=== PATIENT | female | born 1945 | race Caucasian/White ===

== ENCOUNTER 2018-10-19 10:54 | Emergency (ER) | payer MEDICARE, OTHER, SELFPAY ==
[2018-10-19 11:01] VITALS: BP 116/77; PULSE 79; RESP 14; TEMP 36.1; O2SAT 98
[2018-10-19 13:44] VITALS: BP 124/74; PULSE 68; RESP 18; O2SAT 100
--- NOTE | 2018-10-19 13:53 | DI.US.S_ITS ---
PROCEDURE: US PERIPH VENOUS LOW EXTREM LT INDICATIONS: LEFT LEG PAIN TECHNIQUE: Real-time imaging, as well as color and pulse Doppler interrogation, were performed of the lower extremity deep veins from the inguinal ligament to the popliteal fossa. COMPARISON: None. FINDINGS: The deep veins are normally compressible, and free of intraluminal thrombus. Color and pulse Doppler demonstrate normal phasic intraluminal flow. There is normal augmentation response to distal compression maneuver. There is a Hinton's cyst in the left popliteal fossa measuring 5.9 x 1.8 x 3.4 cm. IMPRESSION: 1. No DVT in the left lower facial region. 2. A 5.9 x 1.8 x 3.4 cm Hinton's cyst. Dictated by: Karyna Workman M.D. on 10/19/2018 at 14:39 Approved by: Karyna Workman M.D. on 10/19/2018 at 14:39
--- NOTE | 2018-10-19 13:53 | DI.RAD.S_ITS ---
PROCEDURE: XR KNEE LT 3V INDICATIONS: Knee pain. TECHNIQUE: 3 views of the knee were acquired. COMPARISON: None. FINDINGS: Bones: No fractures or dislocations. Mild tricompartmental degenerative changes of the left knee as evidenced by osteophyte formation. Soft tissues: There is a mild left knee joint effusion. Faint soft tissue calcifications within the knee compartments are consistent with chondrocalcinosis. IMPRESSION: 1. Left knee joint calcifications consistent with chondrocalcinosis. 2. Mild left knee joint effusion with mild degenerative changes of the left knee. Dictated by: Wesly Weston M.D. on 10/19/2018 at 14:46 Approved by: Wesly Weston M.D. on 10/19/2018 at 14:51
--- NOTE | 2018-10-19 14:10 | ED.EXTPRO ---
HPI - Extremity Problem <RHODA Antunez - Last Filed: 10/19/18 18:01> General Chief complaint: Extremity Problem,Nontraumatic Stated complaint: VERY PAINFUL LEFT KNEE Time Seen by Provider: 10/19/18 13:42 Source: patient and family Mode of arrival: ambulatory Limitations: no limitations History of Present Illness HPI Narrative: Patient is a 73-year-old female nonsmoker with history of breast CA who presents with a chief complaint of left knee pain she stated started 2 days ago. She denies any trauma, falls or twisting. She denies any fevers nausea vomiting or diarrhea. She denies any redness. She states that the pain radiates from her knee down her calf. She has taken 1 Tylenol 350 mg p.o. yesterday for the pain. She has not done anything else for the pain. She states that she has range of motion, but that it is painful to move it. She denies any previous injury to her knee before. Related Data Home Medications Medication Instructions Recorded Confirmed Antacid 1 dose PO PRN PRN 10/19/18 10/19/18 Calcium 1 tab PO DAILY 10/19/18 10/19/18 Liquid Minerals 1 dose PO DAILY 10/19/18 10/19/18 Potassium 1 dose PO DAILY 10/19/18 10/19/18 Vitamin D3 1 cap PO DAILY 10/19/18 10/19/18 Women's Multivitamin 1 tab PO DAILY 10/19/18 10/19/18 iron 1 tab PO DAILY 10/19/18 10/19/18 selenium 1 cap PO DAILY 10/19/18 10/19/18 turmeric 1 dose PO DAILY 10/19/18 10/19/18 vitamin E 1 cap PO DAILY 10/19/18 10/19/18 zinc 1 dose PO DAILY 10/19/18 10/19/18 Allergies Allergy/AdvReac Type Severity Reaction Status Date / Time Penicillins [PENICILLINS] Allergy Severe RASH Unverified 12/30/17 12:53 clindamycin [CLINDAMYCIN] AdvReac Severe CRAMPING, Unverified 12/30/17 12:53 DIARRHEA morphine [MORPHINE] AdvReac Severe STOPS Unverified 12/30/17 12:53 BREATHING Review of Systems <RHODA Antunez - Last Filed: 10/19/18 18:01> Review of Systems GENERAL: Denies chills, fatigue, malaise, fever, sweats. HEENT: Denies sinus pain, ear pain, sore throat, difficulty swallowing, dizziness. RESPIRATORY: Denies dyspnea, cough, wheezing, hemoptysis, sputum. CARDIOVASCULAR: Denies chest pain, palpitations, orthopnea, edema, GASTROINTESTINAL: Denies nausea, vomiting, abdominal pain, diarrhea, constipation, melena. : Denies dysuria, frequency, incontinence, hematuria, urinary retention. MUSCULOSKELETAL: See HPI SKIN: Denies rash, skin lesions, or other NEUROLOGIC: Denies weakness, headache, numbness, change in speech, confusion, seizures, incoordination. PSYCHIATRIC: No concerning psychosocial issues. 12 point review of systems is negative except for those stated above Exam <Patricia Moya, AIR SAMPLER-BC - Last Filed: 10/19/18 18:01> Narrative Exam Narrative: GENERAL: obese patient lying on stretcher in no acute distress HEAD: Atraumatic. Normocephalic. No temporal or scalp tenderness. EYES: Pupils equal round and reactive. Extraocular motions intact. No scleral icterus. No injection or drainage. ENT: Nose without bleeding, purulent drainage or septal hematoma. Throat without erythema, tonsillar hypertrophy or exudate. Uvula midline. Airway patent. NECK: Trachea midline. No JVD or lymphadenopathy. Supple, nontender, no meningeal signs. CARDIOVASCULAR: Regular rate and rhythm without murmurs, gallops, or rubs. RESPIRATORY: Clear to auscultation. Breath sounds equal bilaterally. No wheezes, rales, or rhonchi. GASTROINTESTINAL: Abdomen soft, non-tender, nondistended. No hepato-splenomegaly, or palpable masses. No guarding. Active bowel sounds. EXTREMITIES: Diffuse tenderness to palpation left knee. Patient is able to flex left knee 90?. No overlying erythema. Positive Homans sign left calf. Pain to palpation left calf. Positive pedal pulses left foot. BACK: Nontender without deformity or crepitance. No flank tenderness. NEURO: AOx3. SKIN: No rash erythema ecchymosis or erythema noted bilateral knees. Initial Vital Signs Initial Vital Signs: Vital Signs Temperature 97.0 F L 10/19/18 11:01 Pulse Rate 79 10/19/18 11:01 Respiratory Rate 14 10/19/18 11:01 Blood Pressure 116/77 10/19/18 11:01 Pulse Oximetry 98 10/19/18 11:01 <Daisy Anderson DO - Last Filed: 10/20/18 09:45> Initial Vital Signs Initial Vital Signs: Vital Signs Temperature 97.0 F L 10/19/18 11:01 Pulse Rate 79 10/19/18 11:01 Respiratory Rate 14 10/19/18 11:01 Blood Pressure 116/77 10/19/18 11:01 Pulse Oximetry 98 10/19/18 11:01 Course <RHODA Antunez - Last Filed: 10/19/18 18:01> Orders Ordered: ED Orders 10/19/18 13:53 US periph venous low extrem lt Stat XR knee LT 3V Stat Vital Signs - 8 hr 10/19/18 11:01 10/19/18 13:44 10/19/18 15:39 Temperature 97.0 F L Pulse Rate 79 68 80 Respiratory Rate 14 18 16 Blood Pressure 116/77 Blood Pressure [Left Arm] 124/74 124/78 Pulse Oximetry 98 100 99 10/19/18 15:42 Temperature Pulse Rate 74 Respiratory Rate 13 Blood Pressure 124/78 Blood Pressure [Left Arm] Pulse Oximetry 98 <Daisy Anderson DO - Last Filed: 10/20/18 09:45> Orders Ordered: ED Orders 10/19/18 13:53 US periph venous low extrem lt Stat XR knee LT 3V Stat Vital Signs - 8 hr 10/19/18 11:01 10/19/18 13:44 10/19/18 15:39 Temperature 97.0 F L Pulse Rate 79 68 80 Respiratory Rate 14 18 16 Blood Pressure 116/77 Blood Pressure [Left Arm] 124/74 124/78 Pulse Oximetry 98 100 99 10/19/18 15:42 Temperature Pulse Rate 74 Respiratory Rate 13 Blood Pressure 124/78 Blood Pressure [Left Arm] Pulse Oximetry 98 MDM - Extremity (Nontraumatic) <RHODA Antunez - Last Filed: 10/19/18 18:01> Imaging Data Venous US: Radiologist's impression: [address] [address] Ultrasound Report Signed Patient: Sveta Garcia [facility]#: [id number] : 5Acct:[id number] Age/Sex: 73 / FDate of Service: 10/19/18 Loc: ED Accession Number: [id number] Procedure: US periph venous low extrem lt Ordering Provider: Patricia Moya PROCEDURE: US PERIPH VENOUS LOW EXTREM LT INDICATIONS: LEFT LEG PAIN TECHNIQUE: Real-time imaging, as well as color and pulse Doppler interrogation, were performed of the lower extremity deep veins from the inguinal ligament to the popliteal fossa. COMPARISON: None. FINDINGS: The deep veins are normally compressible, and free of intraluminal thrombus. Color and pulse Doppler demonstrate normal phasic intraluminal flow. There is normal augmentation response to distal compression maneuver. There is a Hinton's cyst in the left popliteal fossa measuring 5.9 x 1.8 x 3.4 cm. IMPRESSION: 1. No DVT in the left lower facial region. 2. A 5.9 x 1.8 x 3.4 cm Hinton's cyst. Dictated by: Karyna Workman M.D. on 10/19/2018 at 14:39 Approved by: Karyna Workman M.D. on 10/19/2018 at 14:39 knee xray : Radiologist's impression: [place] [address] XRay Report Signed Patient: Sveta Garcia [facility]#: [id number] : 5Acct:[id number] Age/Sex: 73 / FDate of Service: 10/19/18 Loc: ED Accession Number: [id number] Procedure: XR knee LT 3V Ordering Provider: Patricia Moya PROCEDURE: XR KNEE LT 3V INDICATIONS: Knee pain. TECHNIQUE: 3 views of the knee were acquired. COMPARISON: None. FINDINGS: Bones: No fractures or dislocations. Mild tricompartmental degenerative changes of the left knee as evidenced by osteophyte formation. Soft tissues: There is a mild left knee joint effusion. Faint soft tissue calcifications within the knee compartments are consistent with chondrocalcinosis. IMPRESSION: 1. Left knee joint calcifications consistent with chondrocalcinosis. 2. Mild left knee joint effusion with mild degenerative changes of the left knee. Dictated by: Wesly Weston M.D. on 10/19/2018 at 14:46 Approved by: Wesly Weston M.D. on 10/19/2018 at 14:51 MDM Narrative Medical decision making narrative: Patient is a 73-year-old female with knee pain who presents with chief complaint of left knee pain and swelling. Given her pain and swelling, I did obtain an ultrasound to rule out a DVT. This came back with out a clot. Her x-ray came back with degenerative changes. She does have a Hinton cyst. I offered her pain medication in the emergency department, which she declined. I discussed at length follow up with primary care provider. I discussed come back to the emergency department for any acute concerns including chest pain shortness breath concern pressure for stroke. Patient questions or concerns upon discharge. Discharge Plan Departure Patient Disposition: Home Clinical Impression: Hinton's cyst of knee, Acute knee pain Discharge Date/Time: 10/19/18 15:42 Interventions: ED Discharge Assessment Last Done: 10/19/18 15:42 Instructions: Bakers Cyst, How To Perform RICE (Rest, Ice, Compress, Elevate), DI for Knee Pain Activity Restrictions/Additional Instructions: Your ultrasound shows no blood clot today. You do have a cyst on the back of your knee. You also have some degenerative changes in your knee. Please use rest ice compression elevation as well as [id number] pain medications as needed and able. Please follow-up with her primary care provider shortly. Come back to the emergency department for any acute concerns including blood clot, stroke, heart attack. Prescriptions: No Action Antacid 1 dose PO PRN PRN (Reason: Indigestion) RF: 0 Calcium 1 tab PO DAILY RF: 0 Liquid Minerals 1 dose PO DAILY RF: 0 Potassium 1 dose PO DAILY RF: 0 Vitamin D3 1 cap PO DAILY RF: 0 Women's Multivitamin 1 tab PO DAILY RF: 0 iron 1 tab PO DAILY RF: 0 selenium 1 cap PO DAILY RF: 0 turmeric 1 dose PO DAILY RF: 0 vitamin E 1 cap PO DAILY RF: 0 zinc 1 dose PO DAILY RF: 0 Referrals: Sourav Mohan MD [Primary Care Provider] - <Daisy Anderson DO - Last Filed: 10/20/18 09:45> Cosign ED Attending Juan Carlosature Attestation: I was immediately available in the department for consultation. Documentation has been reviewed. I agree with assessment and plan.
--- NOTE | 2018-10-19 14:13 | ED_ITS ---
HPI - Extremity Problem <RHODA Antunez - Last Filed: 10/19/18 18:01> General Chief complaint: Extremity Problem,Nontraumatic Stated complaint: VERY PAINFUL LEFT KNEE Time Seen by Provider: 10/19/18 13:42 Source: patient and family Mode of arrival: ambulatory Limitations: no limitations History of Present Illness HPI Narrative: Patient is a 73-year-old female nonsmoker with history of breast CA who presents with a chief complaint of left knee pain she stated started 2 days ago. She denies any trauma, falls or twisting. She denies any fevers nausea vomiting or diarrhea. She denies any redness. She states that the pain radiates from her knee down her calf. She has taken 1 Tylenol 350 mg p.o. yesterday for the pain. She has not done anything else for the pain. She states that she has range of motion, but that it is painful to move it. She denies any previous injury to her knee before. Related Data Home Medications Medication Instructions Recorded Confirmed Antacid 1 dose PO PRN PRN 10/19/18 10/19/18 Calcium 1 tab PO DAILY 10/19/18 10/19/18 Liquid Minerals 1 dose PO DAILY 10/19/18 10/19/18 Potassium 1 dose PO DAILY 10/19/18 10/19/18 Vitamin D3 1 cap PO DAILY 10/19/18 10/19/18 Women's Multivitamin 1 tab PO DAILY 10/19/18 10/19/18 iron 1 tab PO DAILY 10/19/18 10/19/18 selenium 1 cap PO DAILY 10/19/18 10/19/18 turmeric 1 dose PO DAILY 10/19/18 10/19/18 vitamin E 1 cap PO DAILY 10/19/18 10/19/18 zinc 1 dose PO DAILY 10/19/18 10/19/18 Allergies Allergy/AdvReac Type Severity Reaction Status Date / Time Penicillins [PENICILLINS] Allergy Severe RASH Unverified 12/30/17 12:53 clindamycin [CLINDAMYCIN] AdvReac Severe CRAMPING, Unverified 12/30/17 12:53 DIARRHEA morphine [MORPHINE] AdvReac Severe STOPS Unverified 12/30/17 12:53 BREATHING Review of Systems <RHODA Antunez - Last Filed: 10/19/18 18:01> Review of Systems GENERAL: Denies chills, fatigue, malaise, fever, sweats. HEENT: Denies sinus pain, ear pain, sore throat, difficulty swallowing, dizziness. RESPIRATORY: Denies dyspnea, cough, wheezing, hemoptysis, sputum. CARDIOVASCULAR: Denies chest pain, palpitations, orthopnea, edema, GASTROINTESTINAL: Denies nausea, vomiting, abdominal pain, diarrhea, constipation, melena. : Denies dysuria, frequency, incontinence, hematuria, urinary retention. MUSCULOSKELETAL: See HPI SKIN: Denies rash, skin lesions, or other NEUROLOGIC: Denies weakness, headache, numbness, change in speech, confusion, seizures, incoordination. PSYCHIATRIC: No concerning psychosocial issues. 12 point review of systems is negative except for those stated above Exam <Patricia Moya, POWDER LINE REPAIRER-BC - Last Filed: 10/19/18 18:01> Narrative Exam Narrative: GENERAL: obese patient lying on stretcher in no acute distress HEAD: Atraumatic. Normocephalic. No temporal or scalp tenderness. EYES: Pupils equal round and reactive. Extraocular motions intact. No scleral icterus. No injection or drainage. ENT: Nose without bleeding, purulent drainage or septal hematoma. Throat without erythema, tonsillar hypertrophy or exudate. Uvula midline. Airway patent. NECK: Trachea midline. No JVD or lymphadenopathy. Supple, nontender, no meningeal signs. CARDIOVASCULAR: Regular rate and rhythm without murmurs, gallops, or rubs. RESPIRATORY: Clear to auscultation. Breath sounds equal bilaterally. No wheezes , rales, or rhonchi. GASTROINTESTINAL: Abdomen soft, non-tender, nondistended. No hepato-splenomegaly , or palpable masses. No guarding. Active bowel sounds. EXTREMITIES: Diffuse tenderness to palpation left knee. Patient is able to flex left knee 90?. No overlying erythema. Positive Homans sign left calf. Pain to palpation left calf. Positive pedal pulses left foot. BACK: Nontender without deformity or crepitance. No flank tenderness. NEURO: AOx3. SKIN: No rash erythema ecchymosis or erythema noted bilateral knees. Initial Vital Signs Initial Vital Signs: Vital Signs Temperature 97.0 F L 10/19/18 11:01 Pulse Rate 79 10/19/18 11:01 Respiratory Rate 14 10/19/18 11:01 Blood Pressure 116/77 10/19/18 11:01 Pulse Oximetry 98 10/19/18 11:01 <Daisy Anderson DO - Last Filed: 10/20/18 09:45> Initial Vital Signs Initial Vital Signs: Vital Signs Temperature 97.0 F L 10/19/18 11:01 Pulse Rate 79 10/19/18 11:01 Respiratory Rate 14 10/19/18 11:01 Blood Pressure 116/77 10/19/18 11:01 Pulse Oximetry 98 10/19/18 11:01 Course <RHODA Antunez - Last Filed: 10/19/18 18:01> Orders Ordered: ED Orders 10/19/18 13:53 US periph venous low extrem lt Stat XR knee LT 3V Stat Vital Signs - 8 hr 10/19/18 11:01 10/19/18 13:44 10/19/18 15:39 Temperature 97.0 F L Pulse Rate 79 68 80 Respiratory Rate 14 18 16 Blood Pressure 116/77 Blood Pressure [Left Arm] 124/74 124/78 Pulse Oximetry 98 100 99 10/19/18 15:42 Temperature Pulse Rate 74 Respiratory Rate 13 Blood Pressure 124/78 Blood Pressure [Left Arm] Pulse Oximetry 98 <Daisy Anderson DO - Last Filed: 10/20/18 09:45> Orders Ordered: ED Orders 10/19/18 13:53 US periph venous low extrem lt Stat XR knee LT 3V Stat Vital Signs - 8 hr 10/19/18 11:01 10/19/18 13:44 10/19/18 15:39 Temperature 97.0 F L Pulse Rate 79 68 80 Respiratory Rate 14 18 16 Blood Pressure 116/77 Blood Pressure [Left Arm] 124/74 124/78 Pulse Oximetry 98 100 99 10/19/18 15:42 Temperature Pulse Rate 74 Respiratory Rate 13 Blood Pressure 124/78 Blood Pressure [Left Arm] Pulse Oximetry 98 MDM - Extremity (Nontraumatic) <RHODA Antunez - Last Filed: 10/19/18 18:01> Imaging Data Venous US: Radiologist's impression: [address] [address] Ultrasound Report Signed Patient: Sveta Garcia [facility]#: [id number] : 5Acct:[id number] Age/Sex: 73 / FDate of Service: 10/19/18 Loc: ED Accession Number: [id number] Procedure: US periph venous low extrem lt Ordering Provider: Patricia Moya PROCEDURE: US PERIPH VENOUS LOW EXTREM LT INDICATIONS: LEFT LEG PAIN TECHNIQUE: Real-time imaging, as well as color and pulse Doppler interrogation, were performed of the lower extremity deep veins from the inguinal ligament to the popliteal fossa. COMPARISON: None. FINDINGS: The deep veins are normally compressible, and free of intraluminal thrombus. Color and pulse Doppler demonstrate normal phasic intraluminal flow. There is normal augmentation response to distal compression maneuver. There is a Hinton's cyst in the left popliteal fossa measuring 5.9 x 1.8 x 3.4 cm. IMPRESSION: 1. No DVT in the left lower facial region. 2. A 5.9 x 1.8 x 3.4 cm Hinton's cyst. Dictated by: Karyna Workman M.D. on 10/19/2018 at 14:39 Approved by: Karyna Workman M.D. on 10/19/2018 at 14:39 knee xray : Radiologist's impression: [place] [address] XRay Report Signed Patient: Sveta Garcia [facility]#: [id number] : 5Acct:[id number] Age/Sex: 73 / FDate of Service: 10/19/18 Loc: ED Accession Number: [id number] Procedure: XR knee LT 3V Ordering Provider: Patricia Moya PROCEDURE: XR KNEE LT 3V INDICATIONS: Knee pain. TECHNIQUE: 3 views of the knee were acquired. COMPARISON: None. FINDINGS: Bones: No fractures or dislocations. Mild tricompartmental degenerative changes of the left knee as evidenced by osteophyte formation. Soft tissues: There is a mild left knee joint effusion. Faint soft tissue calcifications within the knee compartments are consistent with chondrocalcinosis. IMPRESSION: 1. Left knee joint calcifications consistent with chondrocalcinosis. 2. Mild left knee joint effusion with mild degenerative changes of the left knee. Dictated by: Wesly Weston M.D. on 10/19/2018 at 14:46 Approved by: Wesly Weston M.D. on 10/19/2018 at 14:51 MDM Narrative Medical decision making narrative: Patient is a 73-year-old female with knee pain who presents with chief complaint of left knee pain and swelling. Given her pain and swelling, I did obtain an ultrasound to rule out a DVT. This came back with out a clot. Her x-ray came back with degenerative changes. She does have a Hinton cyst. I offered her pain medication in the emergency department, which she declined. I discussed at length follow up with primary care provider. I discussed come back to the emergency department for any acute concerns including chest pain shortness breath concern pressure for stroke. Patient questions or concerns upon discharge. Discharge Plan Departure Patient Disposition: Home Clinical Impression: Hinton's cyst of knee, Acute knee pain Discharge Date/Time: 10/19/18 15:42 Interventions: ED Discharge Assessment Last Done: 10/19/18 15:42 Instructions: Bakers Cyst, How To Perform RICE (Rest, Ice, Compress, Elevate), DI for Knee Pain Activity Restrictions/Additional Instructions: Your ultrasound shows no blood clot today. You do have a cyst on the back of your knee. You also have some degenerative changes in your knee. Please use rest ice compression elevation as well as [id number] pain medications as needed and able. Please follow-up with her primary care provider shortly. Come back to the emergency department for any acute concerns including blood clot, stroke, heart attack. Prescriptions: No Action Antacid 1 dose PO PRN PRN (Reason: Indigestion) RF: 0 Calcium 1 tab PO DAILY RF: 0 Liquid Minerals 1 dose PO DAILY RF: 0 Potassium 1 dose PO DAILY RF: 0 Vitamin D3 1 cap PO DAILY RF: 0 Women's Multivitamin 1 tab PO DAILY RF: 0 iron 1 tab PO DAILY RF: 0 selenium 1 cap PO DAILY RF: 0 turmeric 1 dose PO DAILY RF: 0 vitamin E 1 cap PO DAILY RF: 0 zinc 1 dose PO DAILY RF: 0 Referrals: Sourav Mohan MD [Primary Care Provider] - <Daisy Anderson DO - Last Filed: 10/20/18 09:45> Cosign ED Attending Juan Carlosature Attestation: I was immediately available in the department for consultation. Documentation has been reviewed. I agree with assessment and plan.
[2018-10-19 15:39] VITALS: BP 124/78; PULSE 80; RESP 16; O2SAT 99
[2018-10-19 15:42] VITALS: BP 124/78; PULSE 74; RESP 13; O2SAT 98
== END 2018-10-19 15:42 | disposition home or self-care (01) ==
PROVIDERS: Emergency Provider Nurse Practitioner Family; PCP Family Medicine
DX: M71.22 Synovial cyst of popliteal space [Baker], left knee (principal)
CPT/HCPCS: 73562; 93971; 99282; 99284

== ENCOUNTER → 2019-02-23 13:11 | Outpatient (CLI) | payer MEDICARE, OTHER, SELFPAY ==
[2019-02-23 13:52] LABS: Add Manual Diff / Slide Review NO; Basophils Absolute Auto 100 /uL (0-100); Basophils Percent Auto 0.7 % (0-2); Eosinophils Absolute Auto 200 /uL (0-450); Eosinophils Percent Auto 2.1 % (2-4); Hematocrit 42.4 % (36-46); Hemoglobin 14.1 g/dL (12.0-16.0); Lymphocytes Absolute Auto 1900 /uL (1100-4500); Lymphocytes Percent Auto 24.6 % (25-40); Mean Corpuscular HGB Conc 33.2 % (30-36); Mean Corpuscular Hemoglobin 29.3 PG (26-34); Mean Corpuscular Volume 88.2 fL (80-100); Monocytes Absolute Auto 700 /uL (0-900); Monocytes Percent Auto 9.7 % (3-14); Neutrophils Absolute Auto 4800 /uL (1500-7000); Neutrophils Percent Auto 62.9 % (50-75); Platelet Count 241 X10^3/uL (150-400); Red Blood Cell Count 4.81 X10^6/uL (4.0-5.2); White Blood Cell Count 7.6 X10^3/uL (4.5-11.0)
[2019-02-23 13:58] LABS: Alanine Aminotransferase 18 IU/L (9-52); Albumin 4.4 g/dL (3.5-5.0); Albumin Globulin Ratio 1.5 (1.0-2.8); Alkaline Phosphatase 68 U/L (38-126); Aspartate Aminotransferase 23 IU/L (14-36); BUN Creatinine Ratio 23.8 (6-22); Bilirubin Total 0.5 mg/dL (0.2-1.3); Blood Urea Nitrogen 19 mg/dL (7-17); Calcium 10.1 mg/dL (8.4-10.2); Carbon Dioxide 28 mmol/L (22-32); Chloride 103 mmol/L (98-107); Cholesterol 209 mg/dL (140-199); Estimated Glomerular Filt Rate > 60.0 mL/min (>60); Globulin 2.9 g/dL (1.7-4.1); Glucose 119 mg/dL (80-110); HDL Cholesterol 63 mg/dL (40-60); HEMOLYSIS < 15 (0-50); LDL Cholesterol Calculated 109 mg/dL (<100); Potassium 4.4 mmol/L (3.4-5.1); Sodium 138 mmol/L (137-145); Total Protein 7.3 g/dL (6.3-8.2); Triglycerides 185 mg/dL (35-150)
[2019-02-23 14:32] LABS: HEMOLYSIS < 15 (0-50); Iron 86 ug/dL (37-170)
[2019-02-23 14:45] LABS: Percent Iron Saturation 34 % (15-50); Total Iron Binding Capacity 250 ug/dL (265-497); Transferrin 197 mg/dL (206-381)
[2019-02-23 15:02] LABS: TSH w/ Reflex to FT4 1.87 uIU/mL (0.47-4.68)
== END ==
PROVIDERS: PCP Family Medicine; Visit Provider Family Medicine
DX: D50.8 Other iron deficiency anemias (principal); E66.9 Obesity, unspecified; Z83.3 Family history of diabetes mellitus
CPT/HCPCS: 36415; 80053; 80061; 82728; 83540; 83550; 84443; 85025

== ENCOUNTER → 2019-03-21 14:35 | Outpatient (CLI) | payer MEDICARE, OTHER, SELFPAY | PROVIDERS: PCP Family Medicine; Visit Provider Family Medicine | DX: Z78.0 Asymptomatic menopausal state (principal) | CPT/HCPCS: 77080 ==

== ENCOUNTER → 2019-04-08 09:50 | Outpatient (CLI) | payer MEDICARE, OTHER, SELFPAY ==
[2019-04-08 11:05] LABS: Add Manual Diff / Slide Review NO; Basophils Absolute Auto 0 /uL (0-100); Basophils Percent Auto 0.8 % (0-2); Eosinophils Absolute Auto 100 /uL (0-450); Eosinophils Percent Auto 2.7 % (2-4); Hematocrit 41.2 % (36-46); Hemoglobin 13.8 g/dL (12.0-16.0); Lymphocytes Absolute Auto 1300 /uL (1100-4500); Lymphocytes Percent Auto 25.2 % (25-40); Mean Corpuscular HGB Conc 33.4 % (30-36); Mean Corpuscular Hemoglobin 29.3 PG (26-34); Mean Corpuscular Volume 87.6 fL (80-100); Monocytes Absolute Auto 600 /uL (0-900); Monocytes Percent Auto 11.2 % (3-14); Neutrophils Absolute Auto 3200 /uL (1500-7000); Neutrophils Percent Auto 60.1 % (50-75); Platelet Count 250 X10^3/uL (150-400); Red Blood Cell Count 4.71 X10^6/uL (4.0-5.2); Red Cell Distribution Width 14.8 % (11.6-14.8); White Blood Cell Count 5.3 X10^3/uL (4.5-11.0)
[2019-04-08 11:14] LABS: Hemoglobin A1C% w Est Avg Glu 5.3 % (4.0-6.0)
[2019-04-08 11:32] LABS: Prothrombin Time 11.9 SECONDS (10.1-12.7)
[2019-04-08 11:42] LABS: Blood Urea Nitrogen 18 mg/dL (7-17); Calcium 10.1 mg/dL (8.4-10.2); Carbon Dioxide 27 mmol/L (22-32); Chloride 105 mmol/L (98-107); Estimated Glomerular Filt Rate > 60.0 mL/min (>60); Glucose 90 mg/dL (80-110); HEMOLYSIS < 15 (0-50); Potassium 4.4 mmol/L (3.4-5.1); Sodium 139 mmol/L (137-145)
== END ==
PROVIDERS: PCP Family Medicine; Visit Provider Family Medicine
DX: R73.03 Prediabetes (principal); R79.89 Other specified abnormal findings of blood chemistry; R23.8 Other skin changes; R23.3 Spontaneous ecchymoses; Z83.3 Family history of diabetes mellitus
CPT/HCPCS: 36415; 80048; 82728; 83036; 85025; 85610

== ENCOUNTER → 2019-08-26 13:29 | Outpatient (CLI) | payer MEDICARE, OTHER, SELFPAY | PROVIDERS: PCP Family Medicine; Visit Provider Family Medicine | DX: T14.8XXA Other injury of unspecified body region, initial encounter (principal) | CPT/HCPCS: 87070; 87147; 87205 ==

== ENCOUNTER → 2019-09-06 14:27 | Outpatient (CLI) | payer MEDICARE, OTHER, SELFPAY | PROVIDERS: PCP Family Medicine; Visit Provider Family Medicine | DX: S81.801A Unspecified open wound, right lower leg, initial encounter (principal); R60.0 Localized edema | CPT/HCPCS: 11042; 87070; 87075; 87077; 87147; 87186; 87205; 99203; 99213 ==

== ENCOUNTER → 2019-09-13 08:29 | Outpatient (CLI) | payer MEDICARE, OTHER, SELFPAY | PROVIDERS: PCP Family Medicine; Visit Provider Family Medicine | DX: S81.801A Unspecified open wound, right lower leg, initial encounter (principal); R60.0 Localized edema | CPT/HCPCS: 11042; 97605 ==

== ENCOUNTER → 2019-09-15 12:37 | Outpatient (CLI) | payer MEDICARE, OTHER, SELFPAY | PROVIDERS: PCP Family Medicine; Visit Provider Family Medicine | DX: S81.801D Unspecified open wound, right lower leg, subsequent encounter (principal) | CPT/HCPCS: 99212 ==

== ENCOUNTER → 2019-09-22 13:00 | Outpatient (CLI) | payer MEDICARE, OTHER, SELFPAY | PROVIDERS: PCP Family Medicine; Visit Provider Family Medicine | DX: S81.801A Unspecified open wound, right lower leg, initial encounter (principal); R60.0 Localized edema | CPT/HCPCS: 11042 ==

== ENCOUNTER → 2019-09-28 13:01 | Outpatient (CLI) | payer MEDICARE, OTHER, SELFPAY | PROVIDERS: PCP Family Medicine; Visit Provider Family Medicine | DX: S81.801A Unspecified open wound, right lower leg, initial encounter (principal); R60.0 Localized edema | CPT/HCPCS: 97597 ==

== ENCOUNTER → 2019-10-12 14:27 | Outpatient (CLI) | payer MEDICARE, OTHER, SELFPAY | PROVIDERS: PCP Family Medicine; Visit Provider Family Medicine | DX: S81.801A Unspecified open wound, right lower leg, initial encounter (principal) | CPT/HCPCS: 29581 ==

== ENCOUNTER → 2019-10-14 13:28 | Outpatient (CLI) | payer MEDICARE, OTHER, SELFPAY | PROVIDERS: PCP Family Medicine; Visit Provider Family Medicine | DX: I87.2 Venous insufficiency (chronic) (peripheral) (principal); L97.811 Non-pressure chronic ulcer of other part of right lower leg limited to breakdown of skin; R60.0 Localized edema | CPT/HCPCS: 97597 ==

== ENCOUNTER → 2019-10-19 13:14 | Outpatient (CLI) | payer MEDICARE, OTHER, SELFPAY | PROVIDERS: PCP Family Medicine; Visit Provider Family Medicine | DX: I87.2 Venous insufficiency (chronic) (peripheral) (principal); L97.811 Non-pressure chronic ulcer of other part of right lower leg limited to breakdown of skin; R60.0 Localized edema | CPT/HCPCS: 97597 ==

== ENCOUNTER → 2019-10-26 09:24 | Outpatient (CLI) | payer MEDICARE, OTHER, SELFPAY | PROVIDERS: PCP Family Medicine; Referring Provider Physician Assistant; Visit Provider Family Medicine | DX: I87.2 Venous insufficiency (chronic) (peripheral) (principal); L97.811 Non-pressure chronic ulcer of other part of right lower leg limited to breakdown of skin; R60.0 Localized edema | CPT/HCPCS: 99213 ==

== ENCOUNTER → 2019-11-02 14:27 | Outpatient (CLI) | payer MEDICARE, OTHER, SELFPAY | PROVIDERS: PCP Family Medicine; Referring Provider Physician Assistant; Visit Provider Family Medicine | DX: I87.2 Venous insufficiency (chronic) (peripheral) (principal); R60.0 Localized edema | CPT/HCPCS: 99212; 99213 ==

== ENCOUNTER 2020-08-26 00:05 | Emergency (ER) | payer MEDICARE, OTHER, SELFPAY ==
[2020-08-26 00:05] VITALS: BP 154/86; PULSE 77; RESP 16; TEMP 36.6; O2SAT 95; BMI 36.3
--- NOTE | 2020-08-26 01:30 | ED_ITS ---
HPI - Extremity Injury (Lower) General Chief Complaint: Extremity Injury, Lower Stated Complaint: bruised lower leg fell -6 days Time Seen by Provider: 08/26/20 01:28 Source: patient Mode of arrival: Ambulatory Limitations: no limitations History of Present Illness HPI Narrative: Patient is a 74-year-old female who presents with left leg pain and injury. She says 6 days ago she when out into the wind a door was blowing and it apparently hit her in the low left rosa. Since then she has developed quite significant bruising and significant swelling of the left leg. She has been ambulatory on it without difficulty. However the last few days she has noted some increasing redness and erythema. She has not had any rigors or sweats but does state that her temperature has been rising 1 degree each night. She is currently afebrile here she has not taken any antipyretic medications. complaint: leg injury Onset (ago): day(s) (6) Related Data Home Medications Medication Instructions Recorded Confirmed Antacid 1 dose PO PRN PRN 10/19/18 03/16/20 Calcium 1 tab PO DAILY 10/19/18 03/16/20 Liquid Minerals 1 dose PO DAILY 10/19/18 03/16/20 Potassium 1 dose PO DAILY 10/19/18 03/16/20 Vitamin D3 1 cap PO DAILY 10/19/18 03/16/20 Women's Multivitamin 1 tab PO DAILY 10/19/18 03/16/20 iron 1 tab PO DAILY 10/19/18 03/16/20 selenium 1 cap PO DAILY 10/19/18 03/16/20 turmeric 1 dose PO DAILY 10/19/18 03/16/20 vitamin E 1 cap PO DAILY 10/19/18 03/16/20 zinc 1 dose PO DAILY 10/19/18 03/16/20 ascorbic acid (vitamin C) 500 mg 500 mg PO DAILY 11/29/18 03/16/20 tablet Previous Rx's Medication Instructions Recorded cephalexin [Keflex] 500 mg PO TID #21 cap 08/26/20 Allergies Allergy/AdvReac Type Severity Reaction Status Date / Time Penicillins [PENICILLINS] Allergy Severe RASH Verified 03/16/20 11:54 clindamycin [CLINDAMYCIN] AdvReac Severe CRAMPING, Verified 03/16/20 11:54 DIARRHEA morphine [MORPHINE] AdvReac Severe STOPS Verified 03/16/20 11:54 BREATHING Review of Systems Review of Systems Narrative: GENERAL: Denies chills, fatigue, malaise, fever, sweats, travel HEENT: Denies sinus pain, ear pain, sore throat, difficulty swallowing, neck pain RESPIRATORY: Denies dyspnea, cough, wheezing, hemoptysis, sputum. CARDIOVASCULAR: Denies chest pain, palpitations, orthopnea, edema GASTROINTESTINAL: Denies nausea, vomiting, abdominal pain, diarrhea, constipation, melena. : Denies dysuria, frequency, incontinence, hematuria, urinary retention, flank pain. MUSCULOSKELETAL: Denies weakness, joint pain, or bony pain SKIN: Erythema left leg see HPI NEUROLOGIC: Denies weakness, dizziness, headache, numbness, change in speech, confusion PSYCHIATRIC: No concerning psychosocial issues. 12 point review of systems is negative except for those stated above and HPI Patient History Medical History Breast cancer (~1996) Chronic gastroesophageal reflux disease History of malignant neoplasm of breast (03/15/15) Hyperlipidemia Obesity (BMI 30-39.9) Orbital fracture (~1993) Surgical History H/O dilation and curettage (~1974) S/P left rotator cuff repair (~1993) S/P right rotator cuff repair (~2002) Status post breast lumpectomy Family History Mother Congestive heart failure Father Peptic ulcer disease Social History Smoking Status: Never smoker Smoking Status: Never smoker alcohol intake frequency: 0-2 drinks per day Substance Use Type: does not use Exam Initial Vital Signs Initial Vital Signs: Vital Signs Temperature 97.9 F 08/26/20 00:05 Pulse Rate 77 08/26/20 00:05 Respiratory Rate 16 08/26/20 00:05 Blood Pressure 154/86 H 08/26/20 00:05 Pulse Oximetry 95 08/26/20 00:05 GENERAL: Alert well-appearing 74-year-old female CARDIOVASCULAR: peripheral pulses in tact, cap refill <2 sec RESPIRATORY: No respiratory distress, speaks in full sentences without diffic ulty [ABDOMEN: Soft, nontender, no guarding or rebound] EXTREMITIES: Normal range of motion, no clubbing or edema. Neurovascularly intact NEUROLOGICAL: Cranial nerves II through XII grossly intact. Normal gait and speech. SKIN: Erythema contusion and swelling 6 cm x 5 cm on her left anterior rosa. There is some surrounding erythema as well it is blanchable. Skin is extremely tender to touch. Course Orders Ordered: Discontinued Medications Cefazolin Sodium (Cephalexin 250 Mg Prepack) [facility] Stop: 08/26/20 01:50 Last Admin: 08/26/20 02:19 Dose: 500 mg Documented by: SHAQUILLE Vital Signs Vital signs: Vital Signs - 8 hr 08/26/20 00:05 08/26/20 02:32 Temperature 97.9 F Pulse Rate 77 71 Respiratory Rate 16 18 Blood Pressure 154/86 H 142/82 H Pulse Oximetry 95 97 MDM - Extremity Injury (Lower) MDM Narrative Medical decision making narrative: At this time this appears to be cellulitis. She overall does not appear septic she is afebrile and appears well. She does have a history of large hematomas even leaving scarring on her legs, they also have previously been infected. She had reactions to penicillin and amoxicillin causing like rash and itching. She is also allergic to clindamycin. At this time will try Keflex of discussed for the possible cross reaction however her reaction to penicillins is not anaphylactic or life-threatening Discharge Plan Departure Patient Disposition: Home Clinical Impression: Cellulitis of left leg Instructions: Cellulitis Activity Restrictions/Additional Instructions: *You have been diagnosed with cellulitis left leg *What to do: Monitor redness and swelling. Redness should start to improve in 2-3 days *Continue to take medications as directed Keflex 500 mg 3 times a day for 7 days--> SENT TO [facility] *Follow up with your primary care provider in 2-3 days *Return to ER if you should have increased redness, increased swelling, fever or any new, worsening or concerning symptoms Prescriptions: New cephalexin [Keflex] 500 mg capsule 500 mg PO TID Qty: 21 RF: 0 No Action ascorbic acid (vitamin C) 500 mg tablet 500 mg PO DAILY RF: 0 Antacid 1 dose PO PRN PRN (Reason: Indigestion) RF: 0 Calcium 1 tab PO DAILY RF: 0 Liquid Minerals 1 dose PO DAILY RF: 0 Potassium 1 dose PO DAILY RF: 0 Vitamin D3 1 cap PO DAILY RF: 0 Women's Multivitamin 1 tab PO DAILY RF: 0 iron 1 tab PO DAILY RF: 0 selenium 1 cap PO DAILY RF: 0 turmeric 1 dose PO DAILY RF: 0 vitamin E 1 cap PO DAILY RF: 0 zinc 1 dose PO DAILY RF: 0 Referrals: Maranda Peralta DO [Primary Care Provider] -
[2020-08-26] MEDS: cephALEXin 250 MG PREPACK 1 BOTTLE MISC (02:19)
[2020-08-26 02:32] VITALS: BP 142/82; PULSE 71; RESP 18; O2SAT 97
== END 2020-08-26 02:33 | disposition home or self-care (01) ==
PROVIDERS: Emergency Provider Emergency Medicine; PCP Family Medicine
DX: L03.116 Cellulitis of left lower limb (principal); E66.9 Obesity, unspecified; Z68.36 Body mass index [BMI] 36.0-36.9, adult
CPT/HCPCS: 99281; 99283

== ENCOUNTER → 2020-11-05 12:01 | Outpatient (CLI) | payer MEDICARE, OTHER, SELFPAY ==
--- NOTE | 2020-11-05 12:04 | DI.RAD.S_ITS ---
PROCEDURE: XR CHEST 2V INDICATIONS: shortness of breath TECHNIQUE: 2 views of the chest were acquired. COMPARISON: [facility], CHEST 2 VIEW, 05/31/2015, 15:50. [facility], CHEST 2 VIEW, 09/01/2011, 18:26. FINDINGS: Surgical changes and devices: None. Lungs and pleura: Lungs are clear. No pleural effusions or pneumothorax. Mediastinum: Mediastinal contours are normal. Heart size is normal. Bones and chest wall: No suspicious bony abnormalities. Soft tissues appear unremarkable. IMPRESSION: Normal for age, source of current shortness of breath symptoms is not seen. Dictated by: Freedom Polo M.D. on 11/05/2020 at 12:27 Approved by: Freedom Polo M.D. on 11/05/2020 at 12:28
== END ==
PROVIDERS: PCP Family Medicine; Referring Provider Family Medicine; Visit Provider Family Medicine
DX: R06.00 Dyspnea, unspecified (principal); R06.02 Shortness of breath
CPT/HCPCS: 71046

== ENCOUNTER → 2020-11-06 10:58 | Outpatient (CLI) | payer MEDICARE, OTHER, SELFPAY ==
[2020-11-06 11:39] LABS: Add Manual Diff / Slide Review NO; Basophils Absolute Auto 0 /uL (0-100); Basophils Percent Auto 0.7 % (0-2); Eosinophils Absolute Auto 100 /uL (0-450); Eosinophils Percent Auto 1.5 % (2-4); Hematocrit 40.1 % (36-46); Hemoglobin 13.2 g/dL (12.0-16.0); Lymphocytes Absolute Auto 1500 /uL (1100-4500); Lymphocytes Percent Auto 25.9 % (25-40); Mean Corpuscular HGB Conc 32.9 % (30-36); Mean Corpuscular Hemoglobin 28.7 PG (26-34); Mean Corpuscular Volume 87.1 fL (80-100); Monocytes Absolute Auto 600 /uL (0-900); Monocytes Percent Auto 10.6 % (3-14); Neutrophils Absolute Auto 3600 /uL (1500-7000); Neutrophils Percent Auto 61.3 % (50-75); Platelet Count 244 X10^3/uL (150-400); White Blood Cell Count 5.9 X10^3/uL (4.5-11.0)
[2020-11-06 12:28] LABS: Alanine Aminotransferase 19 IU/L (<35); Albumin 4.1 g/dL (3.5-5.0); Albumin Globulin Ratio 1.4 (1.0-2.8); Alkaline Phosphatase 69 U/L (38-126); Aspartate Aminotransferase 27 IU/L (14-36); BUN Creatinine Ratio 22.8 (6-22); Bilirubin Total 0.7 mg/dL (0.2-1.3); Blood Urea Nitrogen 18 mg/dL (7-17); Calcium 9.7 mg/dL (8.4-10.2); Carbon Dioxide 28 mmol/L (22-32); Chloride 107 mmol/L (98-107); Cholesterol 228 mg/dL (140-199); Estimated Glomerular Filt Rate > 60.0 mL/min (>60); Glucose 98 mg/dL (80-110); HDL Cholesterol 68 mg/dL (40-60); HEMOLYSIS < 15 (0-50); LDL Cholesterol Calculated 148 mg/dL (<100); Potassium 4.3 mmol/L (3.4-5.1); Sodium 138 mmol/L (137-145); Total Protein 7.1 g/dL (6.3-8.2); Triglycerides 60 mg/dL (35-150)
[2020-11-06 12:57] LABS: Ferritin 286 ng/mL (11-264)
[2020-11-06 13:53] LABS: HEMOLYSIS < 15 (0-50); Iron 76 ug/dL (37-170)
[2020-11-06 14:05] LABS: Percent Iron Saturation 29 % (15-50); Total Iron Binding Capacity 262 ug/dL (265-497); Transferrin 199 mg/dL (206-381)
[2020-11-06 14:28] LABS: TSH w/ Reflex to FT4 1.59 uIU/mL (0.47-4.68)
== END ==
PROVIDERS: PCP Family Medicine; Referring Provider Family Medicine; Visit Provider Family Medicine
DX: E66.9 Obesity, unspecified (principal); R06.2 Wheezing; E78.5 Hyperlipidemia, unspecified; R53.83 Other fatigue; R79.89 Other specified abnormal findings of blood chemistry; Z83.3 Family history of diabetes mellitus; R06.02 Shortness of breath
CPT/HCPCS: 36415; 80053; 80061; 82728; 83540; 83550; 84443; 85025

== ENCOUNTER → 2020-12-19 08:04 | Outpatient (CLI) | payer MEDICARE, OTHER, SELFPAY ==
--- NOTE | 2020-12-19 08:05 | DI.ECHO.S_ITS ---
Version: 1 Study ID: [id number] [place] [address] Name: MANNIE LÓPEZ Study Date: 12/19/2020, 8: 18 AM : 1945 BP: 134 / 87 mmHg Gender: Female Height: 64 in Age: 75 Years Weight: 218 lb BSA: 2.03 mA? Ordering: CHAKA VOSS Referring: CHAKA VOSS Clinician: Lina Forman Reason For Study: INCRASED DYSPNEA History: Summary Statements Normal sinus rhythm. Left ventricle is normal in size and wall thickness. It shows normal wall motion and LV systolic function. EF is 60-65%. Stage I diastolic dysfunction (expected for age) Aortic sclerosis with mild associated aortic regurgitation. Otherwise no significant valvular abnormalities. No prior study available for comparison. No cardiovascular pathology found to explain dyspnea. Procedure: A two-dimensional transthoracic echocardiogram with color flow and Doppler was performed. The study quality was technically adequate. There is no prior echocardiogram noted for this patient. The patient was in sinus rhythm with heart rates between 63-71 bpm during the exam. Left Ventricle: The left ventricle is normal in size and wall thickness. The ejection fraction is estimated to be 60-65%. Diastolic parameters suggest a relaxation abnormality of the left ventricle, consistent with probable normal filling pressures. Right Ventricle: The right ventricle is normal in size and function. Atria: The left atrium is mildly dilated. Right atrial size is normal. There is no Doppler evidence for an interatrial shunt. The atrial septum is aneurysmal. Mitral Valve: The mitral valve leaflets appear mildly thickened, but open well. There is mild mitral regurgitation. Aortic Valve: The aortic valve is trileaflet. The aortic valve opens well. There is no aortic valve stenosis. There is mild aortic regurgitation. Tricuspid Valve: The tricuspid valve is normal in structure and function. Pulmonary artery pressures cannot be estimated because of the lack of a measurable TR jet velocity but the IVC suggests a CVP of around 8 mmHg. There is a trace or physiologic amount of tricuspid regurgitation. Pulmonic Valve: The pulmonic valve leaflets are thin and pliable; valve motion is normal. There is trace pulmonic regurgitation. Great Vessels: The aortic root is normal size. The dimensions of the ascending aorta are normal. The IVC is dilated (diameter is greater than 2.1 cm) yet it collapses greater than 50% with a sniff. This suggests a right atrial pressure of 8 mm Hg. Pericardium/ Pleura: There is no pericardial effusion. There is no pleural effusion. 2D and M-Mode Measurements and Calculations LVIDd: 4.6 cm LVOT diam: 2.03 cm LVIDs: 3.2 cm Ao root diam: 3.7 cm IVSd: 1.04 cm asc Aorta Diam: 3.6 cm LVPWd: 0.83 cm Ao Arch Diam (Prox Trans): 2.30 cm LV veliz. diameter/BSA (cm/m^2): 2.27 LV sys. diameter/BSA (cm/m^2): 1.59 EPSS: 0.42 cm RVD1 (basal): 3.3 cm IVC diam: 2.18 cm TAPSE: 2.6 cm LA A4 area: 24.2 founder and chief technical officer? RA area: 19.1 founder and chief technical officer? LA A2 area: 24.7 founder and chief technical officer? RA long axis: 6.4 cm LA length (vol): 6.2 cm RA vol: 48.8 ml LA vol: 81.4 ml RA : 24.1 ml/mA? LA vol index: 40.1 ml/mA? Doppler Measurements and Calculations Ao V2 max: 122.5 cm/sec LVOT Max Brendan: 106.5 cm/sec Ao V2 mean: 76.6 cm/sec LV V1 max P.5 mmHg Ao V2 VTI: 25.9 cm LV V1 VTI: 24.7 cm Ao max P.0 mmHg Ao mean P.8 mmHg TEAGAN(I,D): 3.1 founder and chief technical officer? TEAGAN(V,D): 2.8 founder and chief technical officer? TEAGAN indexed to BSA (cm^2/m^2): 1.52 sev ratio: 0.95 MV E max brendan: 54.6 cm/sec MV dec time: 0.21 sec MV A max brendan: 59.9 cm/sec MV E/A: 0.91 Med Peak E' Brendan: 4.1 cm/sec Lat Peak E' Brendan: 7.9 cm/sec E/e' average: 10.2 MR ERO: 0.09 founder and chief technical officer? MR PISA: 1.62 founder and chief technical officer? Electronically signed by: Karissa Arauz M.D. 12/20/2020, 2: 26 AM
== END ==
PROVIDERS: PCP Family Medicine; Referring Provider Family Medicine; Visit Provider Family Medicine
DX: I08.0 Rheumatic disorders of both mitral and aortic valves (principal); I45.10 Unspecified right bundle-branch block; R06.00 Dyspnea, unspecified
CPT/HCPCS: 93306

== ENCOUNTER → 2021-01-09 12:51 | Outpatient (CLI) | payer MEDICARE, OTHER, SELFPAY ==
[2021-01-09 14:07] LABS: COVID19 -Nasal RAPID Negative (Negative)
== END ==
PROVIDERS: PCP Family Medicine; Referring Provider Internal Medicine; Visit Provider Internal Medicine
DX: Z20.822 Contact with and (suspected) exposure to COVID-19 (principal)
CPT/HCPCS: 87635

== ENCOUNTER → 2021-01-10 13:03 | Outpatient (CLI) | payer MEDICARE, OTHER, SELFPAY ==
--- NOTE | 2021-01-16 11:17 | PM.PFT.1 ---
Pulmonary Function Test Referral & Results Date Patient Seen: 01/10/21 Requesting provider: Maranda Peralta Results: The spirometry demonstrates an FVC of 3.03 L which is 103% of predicted. The FEV1 was measured at 2.32 L which is 105% of predicted. The FEV1/FVC ratio was 76 which is 101% of predicted. Following the administration of bronchodilator there was a 21% improvement in FEF 25-75%. Lung volumes show an SVC of 2.88 L which is 101% of predicted. The diffusing capacity was measured at 20.85 which is 81% of predicted. No hemoglobin value was provided, so no correction for potential anemia could be made, if appropriate. The maximum voluntary ventilation was minimally reduced Interpretation: This study demonstrates normal spirometry and probably normal diffusing capacity although there may be a slight abnormality in diffusing capacity suggesting an element of disease at the capillary alveolar level Clinical correlation suggested
== END ==
PROVIDERS: PCP Family Medicine; Referring Provider Family Medicine; Visit Provider Family Medicine
DX: R06.02 Shortness of breath (principal); R06.00 Dyspnea, unspecified
CPT/HCPCS: 94060; 94726; 94729

== ENCOUNTER 2021-12-25 12:57 | Emergency (ER) | payer MEDICARE, OTHER, SELFPAY ==
[2021-12-25 13:00] VITALS: BP 139/88; PULSE 79; RESP 15; TEMP 36.3; O2SAT 97; BMI 35.9
--- NOTE | 2021-12-25 13:02 | DI.RAD.S_ITS ---
PROCEDURE: XR SHOULDER RT MIN 2V INDICATIONS: bump on shoulder TECHNIQUE: 3 no views of the shoulder were acquired. COMPARISON: None. FINDINGS: Bones: No fractures or dislocations. No suspicious bony lesions. Visualized ribs appear intact. Moderate to severe acromioclavicular degenerative narrowing. Subchondral sclerosis and lucencies are present on the humeral head. Glenohumeral narrowing is present. Soft tissues: No suspicious soft tissue calcifications. Mild soft tissue prominence overlying the acromioclavicular joint space. IMPRESSION: Prominent acromioclavicular and glenohumeral degenerative narrowing. Mild soft tissue prominence overlying the acromioclavicular joint space, possibly related to inflammation. However, underlying mass of other etiology cannot excluded. As clinically indicated, further evaluation with ultrasound may be obtained. Dictated by: Africa Johnson M.D. on 12/25/2021 at 13:21 Approved by: Africa Johnson M.D. on 12/25/2021 at 13:43
--- NOTE | 2021-12-25 14:24 | ED_ITS ---
HPI - Extremity Problem <MAURICE Baca - Last Filed: 12/25/21 16:00> General Chief complaint: Extremity Problem,Nontraumatic Stated complaint: Lump on right shoulder Time Seen by Provider: 12/25/21 14:23 Source: patient Mode of arrival: Ambulatory History of Present Illness HPI Narrative: 76-year-old female presents to the emergency department for right shoulder lump which she noticed last evening. Patient states that she has had right shoulder surgery and left shoulder surgery, denies any recent trauma but states that she has been having some hiccups of her right shoulder with movement. She states that she felt some tenderness in her shoulder yesterday with movement, denies any arthritis in her shoulders, denies any sensation changes, pain in her shoulder, weakness in her arm, limitations to her range of motion, neck pain, fever, illness or other symptom. Patient states that it is little tender to palpation Related Data Home Medications Medication Instructions Recorded Confirmed Calcium 1 tab PO DAILY 10/19/18 11/06/21 Liquid Minerals 1 dose PO DAILY 10/19/18 11/06/21 Vitamin D3 1 cap PO DAILY 10/19/18 11/06/21 Women's Multivitamin 1 tab PO DAILY 10/19/18 11/06/21 selenium 1 cap PO DAILY 10/19/18 11/06/21 turmeric 1 dose PO DAILY 10/19/18 11/06/21 vitamin E 1 cap PO DAILY 10/19/18 11/06/21 zinc 1 dose PO DAILY 10/19/18 11/06/21 ascorbic acid (vitamin C) 500 mg 500 mg PO DAILY 11/29/18 11/06/21 tablet calcium carbonate [Tums] PO 11/06/21 11/06/21 Previous Rx's Medication Instructions Recorded diclofenac sodium 1 % topical gel 4 g TOPICAL QID PRN #100 g 12/25/21 (Voltaren Arthritis Pain) Allergies Allergy/AdvReac Type Severity Reaction Status Date / Time Penicillins [PENICILLINS] Allergy Severe RASH Verified 12/25/21 13:00 clindamycin [CLINDAMYCIN] AdvReac Severe CRAMPING, Verified 12/25/21 13:00 DIARRHEA morphine [MORPHINE] AdvReac Severe STOPS Verified 12/25/21 13:00 BREATHING Patient History <MAURICE Baca - Last Filed: 12/25/21 16:00> Medical History (Updated 12/25/21 @ 14:55 by MAURICE Baca) Breast cancer (~1996) Cellulitis of left leg Chronic gastroesophageal reflux disease Hematoma History of malignant neoplasm of breast (03/15/15) Hyperlipidemia Obesity (BMI 30-39.9) Open wound Orbital fracture (~1993) Surgical History H/O dilation and curettage (~1974) S/P left rotator cuff repair (~1993) S/P right rotator cuff repair (~2002) Status post breast lumpectomy Family History Mother Congestive heart failure Father Peptic ulcer disease Social History Smoking Status: Never smoker second hand exposure: Yes alcohol intake: current (1 drink ~2 months ) substance use type: does not use during the past year weight has: decreased > 10 lbs well-balanced diet: about half the time daily servings fruits/ve or more times/day caffeine: Yes (2-3 caffeinated drinks per day ) eating out: 1-3 times/week frequency: does not exercise Smoking Status: Never smoker alcohol intake frequency: holidays/special occasions only Substance Use Type: does not use Exam <MAURICE Baca - Last Filed: 12/25/21 16:00> Initial Vital Signs Initial Vital Signs: Vital Signs Temperature 97.3 F L 12/25/21 13:00 Pulse Rate 79 12/25/21 13:00 Respiratory Rate 15 12/25/21 13:00 Blood Pressure 139/88 12/25/21 13:00 Pulse Oximetry 97 12/25/21 13:00 <Daisy Anderson DO - Last Filed: 12/26/21 06:48> Initial Vital Signs Initial Vital Signs: Vital Signs Temperature 97.3 F L 12/25/21 13:00 Pulse Rate 79 12/25/21 13:00 Respiratory Rate 15 12/25/21 13:00 Blood Pressure 139/88 12/25/21 13:00 Pulse Oximetry 97 12/25/21 13:00 Course <MAURICE Baca - Last Filed: 12/25/21 16:00> Orders Ordered: ED Orders 12/25/21 13:02 XR shoulder RT min 2V Stat 12/25/21 14:32 US extremity nonvasc upper rt Stat Vital Signs Vital signs: Vital Signs - 8 hr 12/25/21 13:00 Temperature 97.3 F L Pulse Rate 79 Respiratory Rate 15 Blood Pressure 139/88 Pulse Oximetry 97 <Daisy Anderson DO - Last Filed: 12/26/21 06:48> Orders Ordered: ED Orders 12/25/21 13:02 XR shoulder RT min 2V Stat 12/25/21 14:32 US extremity nonvasc upper rt Stat Vital Signs Vital signs: Vital Signs - 8 hr 12/25/21 13:00 Temperature 97.3 F L Pulse Rate 79 Respiratory Rate 15 Blood Pressure 139/88 Pulse Oximetry 97 MDM - Extremity (Nontraumatic) <ALEA BacaP - Last Filed: 12/25/21 16:00> Imaging Data US shoulder: Radiologist's Impression: PROCEDURE:? US EXTREMELY NONVASC UPPER RT ? INDICATIONS:? lump on right shoulder, bursa, lymph or hematoma? ? TECHNIQUE:? Real-time scanning was performed of the right shoulder soft tissue palpable abnormality, with image documentation.? ? COMPARISON:? None. ? FINDINGS:? ? Corresponding with the palpable abnormality, there is a 1.7 x 1.0 x 1.3 complex predominantly cystic structure within the subcutaneous tissues just anterior superior to the distal clavicle.? No internal vascularity present. ? IMPRESSION:? ? Predominantly cystic structure corresponds with the palpable abnormality.? Differential possibilities include distended bursa, synovial cyst, old resolving hematoma.? Consider ultrasound guided aspiration. ? ? ? Approved by: Saul Baires M.D. on 12/25/2021 at 14:35? Extremity x-ray #1: Radiologist's Impression: PROCEDURE:? XR SHOULDER RT MIN 2V ? INDICATIONS:? bump on shoulder ? TECHNIQUE:? 3 no views of the shoulder were acquired.? ? COMPARISON:? None. ? FINDINGS:? ? Bones:? No fractures or dislocations.? No suspicious bony lesions.? Visualized ribs appear intact.? Moderate to severe acromioclavicular degenerative narrowing.? Subchondral sclerosis and lucencies are present on the humeral head.? Glenohumeral narrowing is present. ? Soft tissues:? No suspicious soft tissue calcifications.? Mild soft tissue prominence overlying the acromioclavicular joint space. ? IMPRESSION:? Prominent acromioclavicular and glenohumeral degenerative narrowing. ? ? Mild soft tissue prominence overlying the acromioclavicular joint space, possibly related to inflammation.? However, underlying mass of other etiology cannot excluded.? As clinically indicated, further evaluation with ultrasound may be obtained. ? Dictated by: Africa Johnson M.D. on 12/25/2021 at 13:21 ? ? Approved by: Africa Johnson M.D. on 12/25/2021 at 13:43 ? MDM Narrative Medical decision making narrative: this is a 76-year-old female presents to the emergency department for a right shoulder [place] which appear last night. Patient has bilateral shoulder surgeries, does not endorse any history of rheumatoid arthritis or significant arthritis, she has a history of breast cancer from the 90s and is very remote no recent treatment. On exam, there is no adenopathy, she has been afebrile, there is a fluctuant lump to acromion process, no surrounding erythema, discoloration, wound. Patient describes some tendinopathy symptoms in her shoulder with movement, described a significant painful movement yesterday and then she noticed the lump later that night. Presume this is an inflammatory bursitis related to her degenerative changes in her right r. shoulder. X-ray shows prominent acromioclavicular and glenohumeral degenerative narrowing with m ild soft tissue prominence overlying the acromioclavicular joint space possibly Related to inflammation. Ultrasound nonvascular shows a predominantly cystic structure corresponding to the palpable abnormality. It measures 1.7 x 1.0 x 1.3, described as a complex predominantly cystic structure within the subcutaneous tissue just anterior and superior to the distal clavicle. No internal vascularity was present. Discussion of options with patient, patient does not complain if any pain, she denies wanting any steroid injection at this time. She states that she takes Tylenol when she has pain and she has not needed to take any med for this. She would like to try topical treatment of diclofenac gel, this was prescribed for her, she will follow-up with her primary care provider if this is worsening. She was given a referral to Dr. Mg in case she would like to pursue steroid treatment. Patient is appropriate and amenable to discharge home. Vital signs are stable on repeat examination is unremarkable. Patient has been informed of results. Patient has been given strict return to ER precautions for any new or worsening symptoms. Patient understands to follow up closely with outpatient providers as instructed. Patient understands plan and agrees to discharge home. All questions and concerns answered at this time. Discharge Plan Departure Patient Disposition: Home Clinical Impression: Subacromial bursitis of right shoulder joint Instructions: Bursitis, Shoulder Tendinopathy Activity Restrictions/Additional Instructions: *You have been diagnosed with A predominantly cystic structure within the subcutaneous tissue just anterior a and superior to the distal clavicle. There is no internal vascularity which is good. This is likely inflammatory from your shoulder pain and movement that you described yesterday which sounds like tendinopathy. This could be a distended bursa sac, a synovial cyst, or a hematoma from your injury yesterday. It does not look infected, please try the topical Voltaren gel to see if this improves use ice if you need to, follow-up with your primary care provider for referral to physical therapy and you may consider injected steroids if this continues to get bigger or worse. Thank you for trusting us with your care. *What to do: *Please continue to take your regular medications as directed. [x ] New medication prescriptions sent to your pharmacy: [ [facility]] [ ] New medication written as a paper prescription [ ] No new medications given *Please follow up with your primary care provider in 2-3 days, call for an appointment. Let them know you were seen in the Emergency Department and that we asked that you be seen for follow-up. We will electronically transmit a record of today's note if your PCP is in our system *If you do not have a primary care provider please contact [phone] to establish care with one of the [facility] primary care providers. *Return to Emergency Department if you should have any new, worsening or concerning symptoms, such as [fever greater than 101F, chills, worsening pain, persistent vomiting or other bothersome symptoms] Prescriptions: New diclofenac sodium [Voltaren Arthritis Pain] 1 % gel 4 g topical QID PRN (Reason: pain) Qty: 100 0RF Rx Instructions: apply to single knee, ankle, foot; for foot includes sole/toes/top of foot No Action ascorbic acid (vitamin C) 500 mg tablet 500 mg PO DAILY 0RF calcium carbonate [Tums] PO 0RF Label Comments: Clark Brand Calcium 1 tab PO DAILY 0RF Label Comments: patient states only takes once a day instead of 3 times a day since she takes antacids Liquid Minerals 1 dose PO DAILY 0RF Vitamin D3 1 cap PO DAILY 0RF Women's Multivitamin 1 tab PO DAILY 0RF selenium 1 cap PO DAILY 0RF turmeric 1 dose PO DAILY 0RF vitamin E 1 cap PO DAILY 0RF zinc 1 dose PO DAILY 0RF Referrals: Juan M Mg DO [Physician] - 3-5 days Dinah Maldonado MD [Primary Care Provider] - <Daisy Anderson DO - Last Filed: 12/26/21 06:48> Cosign ED Attending Cospankajature Attestation: I was immediately available in the department for consultation. Documentation has been reviewed. I agree with assessment and plan.
--- NOTE | 2021-12-25 14:32 | DI.US.S_ITS ---
PROCEDURE: US EXTREMELY NONVASC UPPER RT INDICATIONS: lump on right shoulder, bursa, lymph or hematoma? TECHNIQUE: Real-time scanning was performed of the right shoulder soft tissue palpable abnormality, with image documentation. COMPARISON: None. FINDINGS: Corresponding with the palpable abnormality, there is a 1.7 x 1.0 x 1.3 complex predominantly cystic structure within the subcutaneous tissues just anterior superior to the distal clavicle. No internal vascularity present. IMPRESSION: Predominantly cystic structure corresponds with the palpable abnormality. Differential possibilities include distended bursa, synovial cyst, old resolving hematoma. Consider ultrasound guided aspiration. Approved by: Saul Baires M.D. on 12/25/2021 at 14:35
[2021-12-25 16:03] VITALS: BP 162/73; PULSE 65; O2SAT 98
== END 2021-12-25 16:03 | disposition home or self-care (01) ==
PROVIDERS: Emergency Provider Nurse Practitioner Critical Care Medicine; PCP Family Medicine
DX: M75.51 Bursitis of right shoulder (principal)
CPT/HCPCS: 73030; 76882; 99283

== ENCOUNTER → 2021-12-30 10:02 | Outpatient (CLI) | payer MEDICARE, OTHER, SELFPAY ==
[2021-12-30 11:13] LABS: Add Manual Diff / Slide Review NO; Basophils Absolute Auto 100 /uL (0-100); Basophils Percent Auto 0.8 % (0-2); Eosinophils Absolute Auto 200 /uL (0-450); Eosinophils Percent Auto 3.5 % (2-4); Hematocrit 40.5 % (36-46); Hemoglobin 13.3 g/dL (12.0-16.0); Lymphocytes Absolute Auto 1400 /uL (1100-4500); Lymphocytes Percent Auto 22.5 % (25-40); Mean Corpuscular HGB Conc 32.8 % (30-36); Mean Corpuscular Hemoglobin 28.4 PG (26-34); Mean Corpuscular Volume 86.5 fL (80-100); Monocytes Absolute Auto 600 /uL (0-900); Monocytes Percent Auto 9.1 % (3-14); Neutrophils Absolute Auto 3900 /uL (1500-7000); Neutrophils Percent Auto 64.1 % (50-75); Platelet Count 244 X10^3/uL (150-400); Red Blood Cell Count 4.68 X10^6/uL (4.0-5.2); Red Cell Distribution Width 15.3 % (11.6-14.8); White Blood Cell Count 6.1 X10^3/uL (4.5-11.0)
[2021-12-30 11:57] LABS: Alanine Aminotransferase 16 IU/L (<35); Albumin 4.2 g/dL (3.5-5.0); Albumin Globulin Ratio 1.3 (1.0-2.8); Alkaline Phosphatase 62 U/L (38-126); Aspartate Aminotransferase 23 IU/L (14-36); BUN Creatinine Ratio 19.5 (6-22); Bilirubin Total 0.5 mg/dL (0.2-1.3); Blood Urea Nitrogen 17 mg/dL (7-17); Calcium 9.7 mg/dL (8.4-10.2); Carbon Dioxide 28 mmol/L (22-32); Chloride 107 mmol/L (98-107); Cholesterol 210 mg/dL (140-199); Estimated Glomerular Filt Rate > 60.0 mL/min (>60); Globulin 3.2 g/dL (1.7-4.1); Glucose 97 mg/dL (80-110); HDL Cholesterol 64 mg/dL (40-60); HEMOLYSIS < 15 (0-50); LDL Cholesterol Calculated 130 mg/dL (<100); Potassium 4.4 mmol/L (3.4-5.1); Sodium 141 mmol/L (137-145); Total Protein 7.4 g/dL (6.3-8.2); Triglycerides 78 mg/dL (35-150)
[2021-12-30 12:31] LABS: Ferritin 243 ng/mL (11-264)
[2021-12-30 12:58] LABS: HEMOLYSIS < 15 (0-50); Iron 77 ug/dL (37-170)
[2021-12-30 13:10] LABS: Percent Iron Saturation 32 % (15-50); Total Iron Binding Capacity 243 ug/dL (265-497); Transferrin 186 mg/dL (206-381)
== END ==
PROVIDERS: PCP Family Medicine; Referring Provider Family Medicine; Visit Provider Family Medicine
DX: R79.89 Other specified abnormal findings of blood chemistry (principal); E66.9 Obesity, unspecified; E78.5 Hyperlipidemia, unspecified; R06.02 Shortness of breath; Z83.3 Family history of diabetes mellitus
CPT/HCPCS: 36415; 80053; 80061; 82728; 83540; 83550; 85025

== ENCOUNTER 2023-02-17 15:22 | Emergency (ER) | payer MEDICARE, OTHER, SELFPAY ==
[2023-02-17 15:28] VITALS: BP 124/76; PULSE 81; RESP 18; TEMP 36.7; O2SAT 97; BMI 35.2
--- NOTE | 2023-02-17 15:32 | DI.RAD.S_ITS ---
PROCEDURE: XR SHOULDER RT MIN 2V INDICATIONS: can't lift arm/injury weeks ago TECHNIQUE: 3 views of the shoulder were acquired. COMPARISON: [facility], CR, XR SHOULDER RT MIN 2V, 12/25/2021, 12:55. FINDINGS: Bones: No fractures or dislocations. Moderate acromioclavicular joint and glenohumeral joint osteoarthritis. Visualized ribs appear intact. Soft tissues: No suspicious soft tissue calcifications. Right axillary surgical clips. IMPRESSION: Glenohumeral and acromioclavicular joint osteoarthritis. No fracture. No osseous lesion. If symptoms and/or clinical suspicion for pathology persists, further assessment with repeat radiographs (7-10 days) or advanced imaging (e.g. CT, MRI or bone scan) should be considered. Mild superior subluxation of the humeral head possibly related to chronic right or cuff tear. Dictated by: Linette Cabrera MD, PhD on 02/17/2023 at 16:05 Approved by: Linette Cabrera MD, PhD on 02/17/2023 at 16:07
[2023-02-17 16:31] VITALS: BP 135/90; PULSE 80; O2SAT 97
[2023-02-17] MEDS: LIDOCAINE PATCH 1 EACH ADH..PATCH TOP (16:31)
--- NOTE | 2023-02-17 16:54 | ED.UPPEXIN ---
HPI - Extremity Injury (Upper) <Peyman Cornejo PA-C - Last Filed: 02/17/23 16:59> General Chief Complaint: Extremity Injury, Upper Stated Complaint: R shoulder pain, can't raise arm Time Seen by Provider: 02/17/23 15:50 Source: patient Mode of arrival: Ambulatory History of Present Illness HPI narrative: 77-year-old female with past medical history hyperlipidemia, GERD, status post multiple shoulder surgeries presents to the ED with about 1 month of right shoulder pain. Patient states that she can not recall a particular incident that started the pain. Patient has had prior surgeries in bilateral shoulders. Patient states that she has pain when she moves her arm forward. Patient states she is able to move her arm backward without pain. Patient denies numbness, tingling, weakness. Related Data Home Medications Medication Instructions Recorded Confirmed Calcium 1 tab PO DAILY 10/19/18 01/18/22 Liquid Minerals 1 dose PO DAILY 10/19/18 01/18/22 Vitamin D3 1 cap PO DAILY 10/19/18 01/18/22 Women's Multivitamin 1 tab PO DAILY 10/19/18 01/18/22 selenium 1 cap PO DAILY 10/19/18 01/18/22 turmeric 1 dose PO DAILY 10/19/18 01/18/22 vitamin E 1 cap PO DAILY 10/19/18 01/18/22 zinc 1 dose PO DAILY 10/19/18 01/18/22 ascorbic acid (vitamin C) 500 mg 500 mg PO DAILY 11/29/18 01/18/22 tablet calcium carbonate [Tums] PO 11/06/21 01/18/22 Previous Rx's Medication Instructions Recorded diclofenac sodium 1 % topical gel 4 g topical QID PRN pain #100 grams 12/25/21 (Voltaren Arthritis Pain) Allergies Allergy/AdvReac Type Severity Reaction Status Date / Time Penicillins [PENICILLINS] Allergy Severe RASH Verified 01/18/22 11:17 clindamycin [CLINDAMYCIN] AdvReac Severe CRAMPING, Verified 01/18/22 11:17 DIARRHEA morphine [MORPHINE] AdvReac Severe STOPS Verified 01/18/22 11:17 BREATHING Review of Systems <Peyman Cornejo PA-C - Last Filed: 02/17/23 16:59> Review of Systems ROS Unobtainable: All systems reviewed & are unremarkable except as noted in HPI and below Constitutional Constitutional: Denies chills, Denies fatigue, Denies fever(s), Denies frequent falls, Denies lethargy and Denies weakness Eyes Eyes: Denies change in vision, Denies eye discharge, Denies irritation and Denies loss of vision ENT Ears, Nose, Mouth, and Throat: Denies change in voice, Denies dizziness, Denies neck pain, Denies sore throat and Denies throat swelling Cardiovascular Cardiovascular: Denies chest pain, Denies irregular heart rhythm, Denies lightheadedness, Denies palpitations, Denies dyspnea, Denies dyspnea on exertion and Denies orthopnea Respiratory Respiratory: Denies cough, Denies dyspnea, Denies dyspnea on exertion and Denies wheezing Gastrointestinal Gastrointestinal: Denies abdominal pain, Denies change in bowel habits, Denies diarrhea, Denies nausea and Denies vomiting Genitourinary Genitourinary: Denies hematuria, Denies flank pain, Denies urinary incontinence and Denies urinary urgency Musculoskeletal Musculoskeletal: Denies back pain, Denies muscle weakness, Denies neck pain, Denies numbness and Denies tingling Comments: Right shoulder pain Integumentary/Breasts Skin/Breast: Denies pruritus, Denies erythema, Denies rash and Denies wounds Neurologic Neurologic: Denies behavioral changes, Denies confusion, Denies dizziness, Denies frequent falls, Denies loss of vision, Denies numbness, Denies tingling and Denies weakness Psychiatric Psychiatric: Denies anxiety, Denies behavioral changes, Denies confusion, Denies depression, Denies homicidal ideation and Denies suicidal ideation Endocrine Endocrine: Denies fatigue, Denies flushing and Denies palpitations Hematologic/Lymphatic Hematologic/Lymphatic: Denies easy bruising Allergic/Immunologic Allergic/Immunologic: Denies urticaria, Denies throat swelling and Denies wheezing Patient History <Peyman Cornejo PA-C - Last Filed: 02/17/23 16:59> Medical History Breast cancer (~1996) Cellulitis of left leg Chronic gastroesophageal reflux disease Hematoma History of malignant neoplasm of breast (03/15/15) Hyperlipidemia Obesity (BMI 30-39.9) Open wound Orbital fracture (~1993) Surgical History H/O dilation and curettage (~1974) S/P left rotator cuff repair (~1993) S/P right rotator cuff repair (~2002) Status post breast lumpectomy Family History Mother Congestive heart failure Father Peptic ulcer disease Social History Smoking Status: Never smoker second hand exposure: Yes alcohol intake: current substance use type: does not use during the past year weight has: decreased > 10 lbs well-balanced diet: about half the time daily servings fruits/ve or more times/day caffeine: Yes (2-3 caffeinated drinks per day ) eating out: 1-3 times/week frequency: does not exercise Smoking Status: Never smoker alcohol intake frequency: holidays/special occasions only Substance Use Type: does not use Exam <Peyman Cornejo PA-C - Last Filed: 02/17/23 16:59> Narrative Exam Narrative: Const General:?cooperative, healthy appearing and comfortable [facility] Head:?normal to inspection Ears:?hearing grossly normal bilaterally Nose:?external nose normal Face and sinus:?normal facial exam and sinuses nontender Mouth:?oral mucosae normal Throat:?posterior oropharynx normal Eyes General:?appearance normal, both eyes and all related structures Neck Neck:?normal visual inspection and no lymphadenopathy noted Resp Effort & Inspection:?normal respiratory effort Auscultation:?clear to auscultation bilaterally Cardio Rate:?regular rate Rhythm:?regular rhythm Musculoskeletal No tenderness to palpation, no deformities to right shoulder. There is limited range of motion when patient tries to extend arm forwards. Patient is able to touch her belt buckle at the back and extend arm backwards normally. Strength and sensation is intact. Patient is neurovascularly intact. Neuro General:?patient alert, patient awake and patient oriented x3 Initial Vital Signs Initial Vital Signs: Vital Signs Temperature 98.1 F 02/17/23 15:28 Pulse Rate 81 02/17/23 15:28 Respiratory Rate 18 02/17/23 15:28 Blood Pressure 124/76 02/17/23 15:28 Pulse Oximetry 97 02/17/23 15:28 Oxygen Delivery Method Room Air 02/17/23 15:28 <Paulino Benavidez MD - Last Filed: 02/23/23 14:38> Initial Vital Signs Initial Vital Signs: Vital Signs Temperature 98.1 F 02/17/23 15:28 Pulse Rate 81 02/17/23 15:28 Respiratory Rate 18 02/17/23 15:28 Blood Pressure 124/76 02/17/23 15:28 Pulse Oximetry 97 02/17/23 15:28 Oxygen Delivery Method Room Air 02/17/23 15:28 Course <Peyman Cornejo PA-C - Last Filed: 02/17/23 16:59> Orders Ordered: Discontinued Medications Lidocaine (Lidocaine Patch 1 Each Adh..Patch) 1 each TOP NOW ONE Stop: 02/17/23 16:26 Last Admin: 02/17/23 16:31 Dose: 1 each Documented By: CL Vital Signs Vital signs: Vital Signs - 8 hr 02/17/23 15:28 02/17/23 16:31 Temperature 98.1 F Pulse Rate 81 80 Respiratory Rate 18 Blood Pressure 124/76 135/90 Pulse Oximetry 97 97 Oxygen Delivery Method Room Air Room Air <Paulino Benavidez MD - Last Filed: 02/23/23 14:38> Orders Ordered: Discontinued Medications Lidocaine (Lidocaine Patch 1 Each Adh..Patch) 1 each TOP NOW ONE Stop: 02/17/23 16:26 Last Admin: 02/17/23 16:31 Dose: 1 each Documented By: CL Vital Signs Vital signs: Vital Signs - 8 hr 02/17/23 15:28 02/17/23 16:31 Temperature 98.1 F Pulse Rate 81 80 Respiratory Rate 18 Blood Pressure 124/76 135/90 Pulse Oximetry 97 97 Oxygen Delivery Method Room Air Room Air MDM - Extremity Injury (Upper) <Peyman Cornejo PA-C - Last Filed: 02/17/23 16:59> MDM Narrative Medical decision making narrative: 77-year-old female with past medical history hyperlipidemia, GERD, status post multiple shoulder surgeries presents to the ED with about 1 month of right shoulder pain. Concern for fracture/dislocation versus musculoskeletal sprain/strain. Obtained shoulder x-ray which shows possible chronic rotator cuff tear but no fracture/dislocation. Discussed findings with patient. Discussed supportive care with patient. Patient agrees to follow-up with her PCP for further evaluation and possible referral to physical therapy. ED return precautions were discussed with patient. Patient verbalized understanding. Medical records reviewed: Yes Discharge Plan Departure Patient Disposition: Home Clinical Impression: Right shoulder pain Instructions: DI for Shoulder Pain Activity Restrictions/Additional Instructions: You were evaluated in the ED today for right-sided shoulder pain. Your x-ray shows no fractures or dislocations, however shows arthritis and a possible rotator cuff tear. Would benefit from wearing a sling a few hours a day to rest the shoulder. You may apply lidocaine patches which are soiled under the brand name Salonpas, use heat packs, take Tylenol. Please follow-up with your primary care doctor for further evaluation and possible referral to physical therapy. Return to the ED if you experience any numbness, tingling, weakness. Prescriptions: No Action ascorbic acid (vitamin C) 500 mg tablet 500 mg PO DAILY calcium carbonate [Tums] PO Patient Comments: Eduardo Centeno diclofenac sodium [Voltaren Arthritis Pain] 1 % gel 4 g topical QID PRN (Reason: pain) Qty: 100 0RF Rx Instructions: apply to single knee, ankle, foot; for foot includes sole/toes/top of foot Calcium 1 tab PO DAILY Patient Comments: patient states only takes once a day instead of 3 times a day since she takes antacids Liquid Minerals 1 dose PO DAILY Vitamin D3 1 cap PO DAILY Women's Multivitamin 1 tab PO DAILY selenium 1 cap PO DAILY turmeric 1 dose PO DAILY vitamin E 1 cap PO DAILY zinc 1 dose PO DAILY Referrals: Miscellaneous,DoctorMD [Primary Care Provider] - Stand Alone Forms: Patient Portal/API <Paulino Benavidez MD - Last Filed: 02/23/23 14:38> [facility]: I was immediately available in the department for consultation. ?This documentation has been reviewed and I agree with assessment and plan. Supervised by Paulino Benavidez MD
== END 2023-02-17 16:32 | disposition home or self-care (01) ==
PROVIDERS: Emergency Provider Student in an Organized Health Care Education/Training Program
DX: M25.511 Pain in right shoulder (principal)
CPT/HCPCS: 73030; 99283

== ENCOUNTER → 2023-04-03 11:59 | Outpatient (CLI) | payer MEDICARE, OTHER, SELFPAY ==
--- NOTE | 2023-04-03 12:03 | DI.US.S_ITS ---
ULTRASOUND OF RIGHT BREAST AND AXILLA: 04/03/2023 CLINICAL: Right nipple deformity, plus US of LIQ of right breast - 2 cm. from nipple. Previous breast cancer - lumpectomy. Comparison is made to exam dated: 04/03/2023 mammogram - [facility]. Color flow, real-time, and continuous wave Doppler ultrasound of the right breast axilla were performed. There is a 0.6 cm x 0.7 cm x 1 cm complex cystic solid mass vs. complicated cyst in the right breast at 2 o'clock anterior depth 2 cm from the nipple. This correlates with area of clinical concern. There also is a 1.2 cm x 0.8 cm x 1.1 cm complex cystic solid mass vs. complicated cyst in the right breast central to the nipple anterior depth. This correlates with area of clinical concern. No significant abnormalities were seen sonographically in the right axilla. Incidental 3mm cyst in the lower inner quadrant, benign. IMPRESSION: SUSPICIOUS OF MALIGNANCY The 0.6 cm x 0.7 cm x 1 cm complex cystic solid mass vs. complicated cyst in the right breast at 2 o'clock anterior depth is suspicious of malignancy. An ultrasound guided biopsy is recommended. The 1.2 cm x 0.8 cm x 1.1 cm complex cystic solid mass vs. complicated cyst in the right breast central to the nipple anterior depth is suspicious of malignancy. An ultrasound guided biopsy is recommended. These correspond to reported worsening breast/nipple deformity reported by the patient at site of remote surgery. No priors are available for review. No significant abnormalities were seen sonographically in the right axilla. This exam was interpreted at Station ID: [id number]. Electronically Signed By: Codey Griffiths M.D. lc/:04/03/2023 14:06:08 letter sent: Biopsy Required Ultrasound BI-RADS: 4 Suspicious for malignancy
--- NOTE | 2023-04-03 12:03 | DI.MG.S_ITS ---
BILATERAL DIGITAL DIAGNOSTIC MAMMOGRAM 3D/2D: 04/03/2023 CLINICAL: Baseline by niki, right breast lump. Personal history of right breast cancer. No prior exams were available for comparison. Both breasts are heterogeneously dense, which may obscure small masses (category c / 51-75% glandular tissue). There is a cluster of asymmetries in the right breast central to the nipple middle depth. This correlates to post-operative changes and with area of clinical concern. No other significant masses, calcifications, or other findings are seen in either breast. IMPRESSION: INCOMPLETE: NEEDS ADDITIONAL IMAGING EVALUATION The cluster of asymmetries in the right breast is indeterminate. This correlates to post-operative changes and with area of clinical concern. Patient reports increasing nipple and breast deformity. An ultrasound is recommended. No priors are available for review. This exam was interpreted at Station ID: [id number]. NOTE: For mammograms, a report in lay terms will be sent to the patient. Approximately 15% of breast malignancies will not be visualized mammographically. In the management of a palpable breast mass, a negative mammogram must not discourage biopsy of a clinically suspicious lesion. Electronically Signed By: Codey Griffiths M.D. lc/:04/03/2023 14:01:45 ACR BI-RADS Category 0: Incomplete 3340F
--- NOTE | 2023-05-18 13:56 | PC.NURSE ---
Request received for referral to [facility]. This RN called pt and she prefers [facility] since she will be seeing a breast surgeon at [facility]. Message sent back to Maxine Becerra for their clinic to place referral to [facility].
== END ==
PROVIDERS: PCP Family Medicine; Referring Provider Family Medicine; Visit Provider Family Medicine
DX: R92.8 Other abnormal and inconclusive findings on diagnostic imaging of breast (principal); N63.41 Unspecified lump in right breast, subareolar; Z85.3 Personal history of malignant neoplasm of breast
CPT/HCPCS: 76642; 77066; G0279

== ENCOUNTER → 2023-04-27 | Outpatient (CLI) | payer MEDICARE, OTHER, SELFPAY ==
--- NOTE | 2023-04-27 | DI.MG.S_ITS ---
UNILATERAL RIGHT DIGITAL DIAGNOSTIC MAMMOGRAM 3D/2D POST LUMPECTOMY POST-EXCISIONAL BIOPSY: 04/27/2023 CLINICAL: Post clip. Comparison is made to exams dated: 04/03/2023 ultrasound and 04/03/2023 mammogram - [facility]. The right breast is heterogeneously dense, which may obscure small masses (category c / 51-75% glandular tissue). There is a biopsy clip in the area of the biopsy at the 4 'clock of the right breast. IMPRESSION: BENIGN A biopsy clip at the biopsy site. This exam was interpreted at Station ID: [id number]. NOTE: For mammograms, a report in lay terms will be sent to the patient. Approximately 15% of breast malignancies will not be visualized mammographically. In the management of a palpable breast mass, a negative mammogram must not discourage biopsy of a clinically suspicious lesion. Electronically Signed By: Karyna Workman M.D. fx/:04/27/2023 12:22:16 ACR BI-RADS Category 2: Benign Finding(s) 3342F
--- NOTE | 2023-04-27 | PATH_ITS ---
[facility] Accession Number: [id number] No. of containers.. Tissue . 01 Material submitted: . breast - RIGHT BREAST MASS 4:00 . 01 Diagnosis: A. Right Breast Mass, 4 o'clock, 1 cm From The Nipple, Biopsy: Invasive (lobular) carcinoma, grade 2/3 (Pillo combined histologic score of 6/9) with the following characteristics: 1. Tubular differentiation: None (3/3). 2. Nuclear grade: Intermediate (2/3). 3. Mitotic rate: Low (1/3). 4. Tumor size: Present in 6/6 fragments, largest linear span of 7 mm. 5. Calcifications: Not identified. 6. Ductal carcinoma in situ: Not present. - Rare focus of possible atypical lobular hyperplasia is present. 7. Lymphovascular space invasion: Not present. 8. Prognostic markers: - Estrogen receptor status: Positive (99%, Strong). - Progesterone receptor status: Positive (95%, Strong). - Her2 status: Equivocal for protein overexpression by immunohistochemistry (2+); HER2 gene amplification by FISH studies are pending and results will be reported in an addendum. [facility] 05/05/2023 1647 Local . 01 Electronically signed: . Audelia Pat MD, Pathologist NPI- [id number] . 01 Gross description: . The specimen is received in formalin labeled with the patient's name, , and US biopsy breast consists of six delicate cores of yellow-white fibrofatty soft tissue ranging from 0.3 to 2.3 cm in length and averaging 0.1 cm in diameter. Collection time: 0900. Time in formalin: 0921. Cold ischemic time: 21 minutes. Formalin fixation time: Approximately 38 hour. The tissue is entirely submitted in cassettes A1-A2. (JM:[id number]) /MRV 04/28/2023 1242 Local . 01 Microscopic: . A panel of immunostains and predictive immunohistochemical markers are performed on block A2 in order to evaluate the invasive carcinoma with appropriately staining external controls. . The invasive carcinoma has the following immunoprofile: E-cadherin: Lost, in support of lobular phenotype. Beta catenin: No membranous immunoreactivity, in support of lobular phenotype. . Predictive marker immunohistochemical studies are performed on block A2 with the invasive carcinoma showing the following results: . Estrogen receptor (SP1): Positive (99% tumor cells staining, strong intensity). Progesterone receptor (1E2): Positive (95% tumor cells staining, strong intensity). Her2 (4B5): Equivocal for protein overexpression by immunohistochemistry (2+); HER2 gene amplification by FISH studies are pending and results will be reported in an addendum. . The scoring criteria for breast biomarkers by immunohistochemistry is based on the ASCO/CAP guidelines (Estephania AC et al, J Clin Oncol: 2017Mar 30;36(20):1904-4489 and Jhoan PATEL et al, Arch Pathol Lab Med: 2009;134(6):907-22). Deparaffinized sections of formalin fixed tissue (along with appropriate positive controls) are incubated with the above antibody(s). Using the automated Goodman stainer, tissue is incubated with the designated antibody which is then localized by a non-biotin, dual polymer detection system. The external controls are reviewed for appropriate reactivity and found to be adequate. Results on the target cell population are indicated above. These tests have not been validated on decalcified tissue. This test was developed and its performance characteristics determined by [facility]. It has not been cleared or approved by the U.S. Food and Drug Administration. The FDA has determined that such clearance or approval is not necessary. This test is used for clinical purposes. It should not be regarded as investigational or for research. . 01 Pathologist provided ICD-10: C50.911 . 01 CPT . 291184, F10857, T09811, 771966, 437136, 371052 Performed at: 01 [facility] [address], [place], [place] [id number] MD Dominik Odonnell MD Phone: [phone]
--- NOTE | 2023-04-27 | DI.US.S_ITS ---
ULTRASOUND GUIDED BIOPSY RIGHT BREAST WITH POST MAMMOGRAPHIC AND ULTRASOUND IMAGIN04/27/2023 CLINICAL: Right breast mass. PATIENT CONSENT: Risks (minor bleeding, infection, vasovagal reaction and repeat procedure), benefits and alternatives were explained to the patient and written informed consent was obtained. Correlation is made to exams dated: 04/03/2023 ultrasound and 04/03/2023 mammogram - [facility]. An ultrasound guided biopsy using real-time ultrasound was performed for the oval mass located in the right breast at 4 o'clock posterior depth. This was described on the previous ultrasound report. The skin was prepped in the usual manner. Local anesthetic was administered to the access site. The abnormality was approached from the lateral aspect. A 16 gauge biopsy needle was placed adjacent to the abnormality under ultrasound guidance. Once the needle was documented to be in the correct location, five specimens were obtained using an Achieve automated firing device. Post procedure mammographic and ultrasound imaging demonstrates the clip at the targeted area. The specimens were sent to the laboratory for pathological analysis. IMPRESSION: ULTRASOUND GUIDED BIOPSY MALIGNANT Ultrasound guided biopsy of the mass in the right breast was successful. Lesion targeted was the mass central to the nipple described on prior diagnostic US, 4:00 1CFN on the biopsy. Pathology indicates malignant invasive lobular carcinoma (IL). Pathology results are concordant with imaging findings. A second lesion at 2:00 described on prior US was not seen during the biopsy and not sampled. Given lobular characteristics, potential occult second lesion, and patient history, please consider extent of disease MRI in addition to surgical/oncologic consultation. This exam was interpreted at Station ID: [id number]. Karyna Griffiths M.D. fx,latoya/:05/06/2023 09:17:30
== END ==
PROVIDERS: PCP Family Medicine; Referring Provider Family Medicine; Visit Provider Family Medicine
DX: C50.311 Malignant neoplasm of lower-inner quadrant of right female breast; Z17.0 Estrogen receptor positive status [ER+]
CPT/HCPCS: 19083; 77065

== ENCOUNTER → 2023-05-27 07:46 | Outpatient (CLI) | payer MEDICARE, OTHER, SELFPAY ==
--- NOTE | 2023-05-27 07:47 | DI.MRI.S_ITS ---
BREAST MRI OF BOTH BREASTS- POST LUMPECTOMY: 05/27/2023 CLINICAL: Right breast cancer. TECHNIQUE: The patient was placed prone in a dedicated breast imaging coil. Precontrast axial STIR and 3D FLASH without fat saturation sequences were obtained. Both before and after bolus injection of contrast, sequential 1-minute axial 3D FLASH with fat saturation sequences for 3 time points, with subtraction images and maximum intensity projections (MIP's) generated. Delayed sagittal FLASH images with fat saturation were also obtained. Computer-aided detection, including computer algorithm analysis of MRI image data for lesion detection and characterization, pharmacokinetic analysis, with further physician review for interpretation, was performed. COMPARISON: [facility], , DIAGNOSTIC MAMMO UNILAT RT2D, 04/27/2023, 9:10. [facility], US, US BREAST RT LIMITED, 04/03/2023, 12:43. [facility], , MM DIAGNOSTIC MAMMO BI, 04/03/2023, 12:19. Image quality: Diagnostic. There is mild background parenchymal enhancement. There is scattered fibroglandular tissue in the bilateral breast. Right breast: Redemonstration of postsurgical changes involving the right breast. Multiple foci of susceptibility artifact extend along the central to lateral aspect of the right breast compatible with surgical clips seen on comparison mammogram. Along the area of previous postsurgical change, there is moderate-sized, ill-defined regional non mass enhancement identified in the central right breast measuring approximately 3.5 x 2.7 cm in axial cross-sectional dimension (image 72/series 5) and approximately 5.1 cm in craniocaudal dimension (image 35/series 17). Susceptibility artifact from biopsy marker of recent biopsy is noted in the central right breast middle depth. This is compatible with biopsy-proven malignancy. Irregular non-mass enhancement extends anteriorly from the central right breast towards the right nipple with associated abnormal nipple enhancement. Additionally, non-mass enhancement extends laterally and slightly inferiorly. Overall, non-mass enhancement correlates with multiple irregular focal asymmetries seen on comparison mammogram. Enhancing component of the right nipple measures approximately 1.8 cm in craniocaudal dimension and approximately 1.7 x 1.3 cm in axial cross-sectional dimension. No abnormal skin enhancement or evidence for extension to the chest wall is identified. No axillary or internal mammary chain adenopathy identified. Left breast: Irregular area of focal non-mass enhancement noted in the middle depth of the lower outer left breast near the 5 o'clock axis measuring approximately 2.5 x 1.1 cm in axial cross-sectional dimension (image 53/series 13) and approximately 1.1 cm in craniocaudal dimension (image 80/series 18). Multiple additional foci of clustered ring enhancement noted in close proximity more anteriorly and centrally. In total, area of involvement span approximately 5.2 x 4.5 cm in axial cross-sectional dimension. No definite definable mass identified in the left breast. No evidence for skin or nipple abnormalities. No axillary or internal mammary chain adenopathy. Miscellaneous: Visualized portions of the upper abdomen and chest appear unremarkable. IMPRESSION: INCOMPLETE: NEEDS ADDITIONAL IMAGING EVALUATION 1. Moderate-sized ill-defined regional non-mass enhancement of the right breast extending from the central right breast at site of recent biopsy proven malignancy which extends anteriorly to involve the right nipple. Distribution of suspicious non mass enhancement appears to parallel irregular focal asymmetries seen on comparison mammogram which were noted to be in close vicinity to site of previous surgery. Findings are consistent with multifocal, multicentric disease. No evidence for metastatic adenopathy. 2. Suspicious 2.5 x 1.1 x 1.1 cm area of irregular focal non-mass enhancement with multiple adjacent suspicious foci of clustered ring enhancement in the left breast near the 5 o'clock position, middle depth. Recommend second-look ultrasound to evaluate for a possible sonographic correlate. If no sonographic abnormality is identified, recommend further evaluation with MRI guided breast biopsy. No evidence for metastatic adenopathy. COMMENT: The imaging literature indicates that a negative contrast breast MRI examination has a high sensitivity and a moderate specificity for detecting and excluding invasive carcinomas to a detection threshold of 3-5 mm; nonetheless, appropriate clinical and mammographic follow-up are recommended. MRI is not sensitive for detecting DCIS (ductal carcinoma in situ) and may not detect large invasive neoplasms that show only minimal enhancement such as mucinous carcinoma. If there are suspicious calcifications or clinically worrisome palpable masses, then biopsy should still be considered. Invasive neoplasms can be hidden by co-existent and benign enhancement caused by mastitis, hormone therapy effects, radiation therapy, , and recent biopsy or surgery. False positive examinations can occur in a number of circumstances, including breasts that have recently been subject to invasive procedures and those that contain atypical ductal hyperplasia, hormonally stimulated glandular tissue, fat necrosis, or radial scars. This exam was interpreted at Station ID: [id number]. Electronically Signed By: Juan Reina M.D. aty/:05/28/2023 13:24:04 ACR BI-RADS Category 0: Incomplete 3340F
== END ==
PROVIDERS: PCP Family Medicine; Referring Provider Family Medicine; Visit Provider Family Medicine
DX: C50.911 Malignant neoplasm of unspecified site of right female breast (principal); N63.23 Unspecified lump in the left breast, lower outer quadrant
CPT/HCPCS: 77049; A9579

== ENCOUNTER → 2024-01-13 15:48 | Outpatient (CLI) | payer MEDICARE, OTHER, SELFPAY ==
[2024-01-13 16:39] LABS: Add Manual Diff / Slide Review NO; Basophils Absolute Auto 100 /uL (0-100); Eosinophils Absolute Auto 100 /uL (0-450); Eosinophils Percent Auto 1.2 % (2-4); Hematocrit 38.6 % (36-46); Hemoglobin 12.9 g/dL (12.0-16.0); Lymphocytes Absolute Auto 2000 /uL (1100-4500); Lymphocytes Percent Auto 22.1 % (25-40); Mean Corpuscular HGB Conc 33.4 % (30-36); Mean Corpuscular Volume 86.8 fL (80-100); Monocytes Absolute Auto 800 /uL (0-900); Monocytes Percent Auto 9.2 % (3-14); Neutrophils Absolute Auto 6000 /uL (1500-7000); Neutrophils Percent Auto 66.5 % (50-75); Platelet Count 259 X10^3/uL (150-400); Red Blood Cell Count 4.45 X10^6/uL (4.0-5.2); Red Cell Distribution Width 15.1 % (11.6-14.8); White Blood Cell Count 9.1 X10^3/uL (4.5-11.0)
[2024-01-13 16:53] LABS: Alanine Aminotransferase 20 IU/L (<35); Albumin 4.5 g/dL (3.5-5.0); Albumin Globulin Ratio 1.8 (1.0-2.8); Alkaline Phosphatase 76 U/L (38-126); Aspartate Aminotransferase 26 IU/L (14-36); BUN Creatinine Ratio 23.3 (6-22); Bilirubin Total 0.6 mg/dL (0.2-1.3); Blood Urea Nitrogen 21 mg/dL (7-17); Calcium 10.2 mg/dL (8.4-10.2); Carbon Dioxide 24 mmol/L (22-32); Chloride 106 mmol/L (98-107); Estimated Glomerular Filt Rate > 60 mL/min (>60); Globulin 2.5 g/dL (1.7-4.1); Glucose 86 mg/dL (80-110); HEMOLYSIS < 15 (0-50); Potassium 4.5 mmol/L (3.4-5.1); Sodium 138 mmol/L (137-145)
== END ==
PROVIDERS: PCP Family Medicine; Referring Provider Family Medicine; Visit Provider Family Medicine
DX: Z00.00 Encounter for general adult medical examination without abnormal findings (principal); R06.02 Shortness of breath; M79.89 Other specified soft tissue disorders; I87.2 Venous insufficiency (chronic) (peripheral)
CPT/HCPCS: 36415; 80053; 85025

== ENCOUNTER → 2024-02-24 09:19 | Outpatient (CLI) | payer MEDICARE, OTHER, SELFPAY ==
--- NOTE | 2024-02-24 09:20 | DI.ECHO.S_ITS ---
[facility] : : [id number] : [place] [address] : : [id number] : : Phone: [phone] Echocardiogram Report + + :Name: MANNIE LÓPEZ Study Date: 02/24/2024 Height: 63 in : :Hospital ReadingLocation: Weight: 220 lb : : Gender: Female BSA: 2.0 m2 : :: 1945 Age: 78 yrs BP: 142/100 mmHg: :Reason For Study: SHORTNESS OF BREATH, LEG SWELLING : :Ordering Physician: OSCAR, : :OLIVE Performed By: Lina Forman : :Referring: OLIVE MOORE : + + Interpretation Summary 1) Normal left ventricular thickness, size, wall motion, and systolic function (EF 60-65%). 2) Normal right ventricular size and function. 3) There is mild aortic regurgitation. 4) Compared to the Echo done 12/19/2020, no significant change. Procedure: A two-dimensional transthoracic echocardiogram with color flow and Doppler was performed. The study quality was technically adequate. Comparison is made with the echocardiogram of 12/19/2020. The patient was in sinus rhythm with heart rates between 66-81 bpm during the exam. Left Ventricle: Proximal septal thickening is noted. There is normal left ventricular wall thickness. The ejection fraction is estimated to be 60-65%. Left ventricular systolic function appears normal without focal wall motion abnormalities. Right Ventricle: The right ventricle is normal in size and function. Atria: The left atrium is moderately dilated. Right atrial size is normal. There is no Doppler evidence for an interatrial shunt. Mitral Valve: The mitral valve is normal in structure and function. There is trace mitral regurgitation. Aortic Valve: The aortic valve is trileaflet. The aortic valve opens well. There is no aortic valve stenosis. There is mild aortic regurgitation. Tricuspid Valve: The tricuspid valve is normal in structure and function. There is mild tricuspid regurgitation. The right ventricular systolic pressure is estimated to be at least 26 mmHg based on an estimated right atrial pressure of 3 mm Hg. Pulmonic Valve: The pulmonic valve leaflets are thin and pliable; valve motion is normal. There is mild pulmonic regurgitation. Great Vessels: The aortic root is normal size. The dimensions of the ascending aorta are normal. The IVC is of normal diameter and collapses greater than 50% with a sniff. This suggests a low right atrial pressure of 3 mm Hg. Pericardium/ Pleura There is no pericardial effusion. There is no pleural effusion. MMode/2D Measurements & Calculations LVIDd: 4.9 cm LVOT diam: 2.0 cm LVIDs: 3.2 cm Ao root diam: 3.5 cm FS: 34.9 % asc Aorta Diam: 3.7 cm IVSd: 0.94 cm Ao Arch Diam (Prox Trans): 2.5 cm LVPWd: 0.71 cm LV veliz. diameter/BSA (cm/m^2): 2.4 LV sys. diameter/BSA (cm/m^2): 1.6 LA A2 area: 22.9 cm2 RA long axis: 5.4 cm LA A4 area: 21.3 cm2 RA area: 19.5 cm2 LA length (vol): 5.8 cm RA vol: 60.4 ml LA vol: 71.1 ml RA : 30.0 ml/m2 LA vol index: 35.3 ml/m2 IVC diam: 1.8 cm RVD1 (basal): 3.4 cm RVD2 (mid): 3.0 cm TAPSE: 1.9 cm Doppler Measurements & Calculations Ao V2 max: 150.0 cm/sec LVOT Max Brendan: 109.8 cm/sec Ao V2 mean: 98.0 cm/sec LV V1 max P.8 mmHg Ao max P.0 mmHg LV V1 VTI: 23.6 cm Ao mean P.4 mmHg TEAGAN(I,D): 2.3 cm2 Ao V2 VTI: 31.3 cm TEAGAN(V,D): 2.3 cm2 sev ratio: 0.75 TEAGAN indexed to BSA (cm^2/m^2): 1.2 AI P1/2t: 721.8 msec AI dec slope: 173.7 cm/sec2 MV E max brendan: 68.7 cm/sec TR max brendan: 240.5 cm/sec MV A max brendan: 61.3 cm/sec TR max P.1 mmHg MV E/A: 1.1 PA V2 max: 71.8 cm/sec Med Peak E' Brendan: 4.9 cm/sec PA V2 mean: 49.9 cm/sec E/E' med: 13.9 PA mean P.1 mmHg Lat Peak E' Brendan: 10.6 cm/sec PA pr(Accel): 36.2 mmHg E/E' lat: 6.5 E/e' average: 10.2 MV dec time: 0.19 sec MR ERO: 0.14 cm2 MR PISA: 1.8 cm2 SV(LVOT): 72.8 ml MR flow rate: 79.5 cm3/sec MR PISA radius: 0.54 cm Reading Physician:03:47 PM
== END ==
PROVIDERS: Family Provider Family Medicine; PCP Family Medicine; Referring Provider Family Medicine; Visit Provider Family Medicine
DX: I08.2 Rheumatic disorders of both aortic and tricuspid valves (principal); I87.2 Venous insufficiency (chronic) (peripheral); R06.02 Shortness of breath; M79.89 Other specified soft tissue disorders; E78.5 Hyperlipidemia, unspecified
CPT/HCPCS: 93306

== ENCOUNTER → 2024-04-06 14:50 | Outpatient (CLI) | payer MEDICARE, OTHER, SELFPAY ==
--- NOTE | 2024-04-06 14:52 | DI.RAD.S_ITS ---
PROCEDURE: XR LUMBAR SPINE 2-3V INDICATIONS: lumbar pain charlie r side x 10 mos TECHNIQUE: 3 views of the lumbar spine were acquired. COMPARISON: None. FINDINGS: Bones: 5 [id number] vertebrae are present. There is normal bony alignment. No vertebral body compression fractures. No suspicious bony lesions. Multilevel disc space narrowing and degenerative endplate changes. Multilevel facet hypertrophy. Soft tissues: Overlying bowel gas pattern is normal. No suspicious soft tissue calcifications. IMPRESSION: Moderate multilevel lumbar spondylosis. Approved by: Jac Garcia M.D. on 04/06/2024 at 16:27
== END ==
PROVIDERS: Family Provider Family Medicine; PCP Family Medicine; Referring Provider Physician Assistant; Visit Provider Physician Assistant
DX: M54.50 Low back pain, unspecified (principal); M47.816 Spondylosis without myelopathy or radiculopathy, lumbar region
CPT/HCPCS: 72100

== ENCOUNTER 2024-05-26 11:15 | Outpatient (RCR) | payer MEDICARE, OTHER, SELFPAY ==
--- NOTE | 2024-02-29 16:18 | PT.OIE ---
Current Diagnoses Unsteadiness on feet (02/29/24) Other lack of coordination (02/29/24) Weakness (02/29/24) Unspecified fall, initial encounter (02/29/24) Past Medical History (Last Updated 04/06/23 @ 19:37 by Aly Emanuel DO) Breast cancer (~1996) Breast mass, right Cellulitis of left leg Chicken pox Chronic cough Chronic gastroesophageal reflux disease Fractures (~1993) Headache Hearing loss Hematoma History of malignant neoplasm of breast (03/15/15) Hyperlipidemia Migraines Mumps Obesity (BMI 30-39.9) Open wound Orbital fracture (~1993) Sleep apnea Vertigo Past Surgical History (Last Updated 03/18/23 @ 20:12 by Aliza Franklin) Anesthesia H/O dilation and curettage (~1974) History of facial surgery (~1993) History of surgery on arm (~1951) S/P left rotator cuff repair (~1993) S/P right rotator cuff repair (~2002) Status post breast lumpectomy Visit Care Team Role Provider Type Aly Emanuel DO Attending Provider Physician Family Provider Primary Care Provider Referring Provider Specialty: Family Practice Address: [address] [place] [address], [address], [facility] Email: [email or web address] Physical Therapy Initial Evaluation PT-OP-A Visit Information Start: 02/29/24 13:47 Freq: Status: Active Protocol: Document 02/29/24 13:47 NM (Rec: 02/29/24 16:14 NM [id number]) Out-Patient Physical Therapy Visit Information Visit Information Visit Type Initial Evaluation Visit Start Time 13:47 Visit Stop Time 14:30 Visit Number 1 Evaluation Information Evaluation Date 02/29/24 Precautions Precautions blood pressure, fall risk PT-OP-B Current Condition Start: 02/29/24 13:47 Freq: Status: Active Protocol: Document 02/29/24 13:47 NM (Rec: 02/29/24 16:14 NM [id number]) Current Condition History of Current Condition Current Complaints mobility, balance, weakness, endurance History of Current Condition Pt presents with abnormalities of balance, gait, strength, and decreased endurance. She reports that she uses furniture and underwood to assist with balance. Does not use an AD despite being told that she should. Hx of falls, most recent last when tripping over an object. Denies vertigo, dizziness. Report tingling in feet, numbness in plantar surfaces bilaterally. PMH of breast cancer, blood clots, headaches , memory loss, shortness of breath. Reports blood pressure usually low; does not get dizzy with positional changes. No falls otherwise, only near misses. Has several stairs with rails leading up to house and several inside (3 levels) . Lives with 2 adult sons. Retired Treatment Goals Patient/Caregiver Goals get stronger, improve endurance Current Functional Impairments (Reported) Functional Limitations- ADL's dressing Functional Limitations- Mobility/Gait 09/28 mi or 3-4 blocks ambulation sitting stairs Functional Limitations- Work/School retired PT-OP-C Subjective Start: 02/29/24 13:47 Freq: Status: Active Protocol: Document 02/29/24 13:47 NM (Rec: 02/29/24 16:14 NM [id number]) OP-PT Subjective Patient Comments Patient Comments see hx above for pt report Patient Questionnaires ABC- Activity Specific Balance Confidence Scale ABC Score 58% OP-PT Pain Assessment Comments Pain Comments reports 11/28 low back pain, improved with chiropractor visits PT-OP-D Balance Start: 02/29/24 13:47 Freq: Status: Active Protocol: Document 02/29/24 13:47 NM (Rec: 02/29/24 16:16 NM [id number]) Balance Tests Marrufo Balance Test Marrufo Balance Test Score 38/56 PT-OP-E Functional Tests Start: 02/29/24 13:47 Freq: Status: Active Protocol: Document 02/29/24 13:47 NM (Rec: 02/29/24 16:14 NM [id number]) Functional Tests Five Times Sit to Stand Test Score 13 seconds Comments uses momentum, poor form, no eccentric control PT-OP-F Manual Assessment Start: 02/29/24 13:47 Freq: Status: Active Protocol: Document 02/29/24 13:47 NM (Rec: 02/29/24 16:14 NM [id number]) Manual Assessments Soft Tissue Assessment Soft Tissue Mobility Assessment Decreased hip flexor length Joint Mobility Assessment Joint Mobility Assessment Decreased hip and trunk ROM PT-OP-G Mobility & Gait Start: 02/29/24 13:47 Freq: Status: Active Protocol: Document 02/29/24 13:47 NM (Rec: 02/29/24 16:14 NM [id number]) OP Gait Assessment Gait Gait Assistance Required: Standby Assistance Distance (Feet) 250 Assistive Devices Assistive Device None,Gait Belt Gait Deviations General Gait Pattern Antalgic,Decreased Feet Clearance,Flexed Trunk,Wide Based Gait Factors Limiting Gait Function Factors Limiting Gait Function Decreased Activity Tolerance, Decreased Sensation,Decreased Strength,Limited Range of Motion,Poor Balance Stair Climbing Evaluation Evaluation Level of Assist On Stairs Contact Guard Assistance Devices Stair Climbing Assistive Devices Left Railing Technique/Endurance Stair Climbing Direction Ascend and Descend Stair Climbing Technique Step to Step Number of Steps Climbed 4 Stair Climbing Set # Repetitions (reps) 2 Comments Stair Climbing Comments Poor descent control PT-OP-H Neuro Start: 02/29/24 13:47 Freq: Status: Active Protocol: Document 02/29/24 13:47 NM (Rec: 02/29/24 16:14 NM [id number]) Sensation Evaluation Comments Summary Comments BLE grossly intact to light touch sensation until plantar surface of foot. Numbness along plantar surface bilaterally PT-OP-J Posture/Palpation/Skin Start: 02/29/24 13:47 Freq: Status: Active Protocol: Document 02/29/24 13:47 NM (Rec: 02/29/24 16:14 NM [id number]) Posture Evaluation Position Standing Head/C-Spine Posture Forward Head T-Spine Posture Increased Kyphosis L-Spine Posture Increased Lordosis Pelvis Posture Anteriorly Tilted Hip Posture (L) Externally Rotated,(R) Externally Rotated Knee Posture (L) Genu Valgus,(R) Genu Valgus Ankle/Foot Posture (L) Pronated,(R) Pronated Foot Arch (L) Low Arch,(R) Low Arch Skin Assessment Other Assessments Skin Assessment Comments Multiple old bruises, purple hematomas from previous injuries along BLE PT-OP-K Range of Motion Start: 02/29/24 13:47 Freq: Status: Active Protocol: Document 02/29/24 13:47 NM (Rec: 02/29/24 16:14 NM [id number]) Ankle and Foot Goniometric Range of Motion Ankle and Foot ROM Limitations Comments Observable limitation in B ankle dorsiflexion PT-OP-M Strength Start: 02/29/24 13:47 Freq: Status: Active Protocol: Document 02/29/24 13:47 NM (Rec: 02/29/24 16:14 NM [id number]) Trunk Strength Trunk Manual Muscle Testing Flexion 3 Fair Extension 3 Fair Rotation Left 3 Fair Rotation Right 3 Fair Lateral Flexion Left 3 Fair Lateral Flexion Right 3 Fair Hip Strength Hip Manual Muscle Testing Right Flexion (L2) 3+ Fair+ Extension (S1) 3+ Fair+ Abduction 3+ Fair+ Left Flexion (L2) 3+ Fair+ Extension (S1) 3+ Fair+ Abduction 3+ Fair+ Knee Strength Knee Manual Muscle Testing Right Flexion (S2) 4- Good- Extension (L3) 4- Good- Left Flexion (S2) 4- Good- Extension (L3) 4- Good- Ankle/Foot Strength Ankle and Foot Manual Muscle Testing Right Dorsiflexion (L4) 4- Good- Plantarflexion (S1) 3 Fair Comments Plantarflexion tested in sitting Left Dorsiflexion (L4) 4- Good- Plantarflexion (S1) 3 Fair Comments Plantarflexion tested in sitting PT-OP-Q Treatments Start: 02/29/24 13:47 Freq: Status: Active Protocol: Document 02/29/24 13:47 NM (Rec: 02/29/24 16:16 NM [id number]) Self-Care/Home Management Treatment Education Patient Education Fall Risk,Safety Other Education 8 minutes- Education on reducing fall risk: shoe choice, well-lit rooms, decreasing clutter, AD use, limit throw rugs, use of rails with stairs and limiting carrying objects PT recommended pt wear shoes that are not loose or slip ons to limit fall risk, and recommended AD use for additional stability during gait due to balance testing scores PT-OP-T Assessment and Plan Start: 02/29/24 13:47 Freq: Status: Active Protocol: Document 02/29/24 13:47 NM (Rec: 02/29/24 16:14 NM [id number]) Physical Therapy Assessment Rehab Potential Rehabilitation Potential Good Evaluation Complexity Number of Personal Factors/Comorbidities 3 or More Number of Body Systems Impaired 1-2 Clinical Presentation at Evaluation Stable Impairments Impairments Activity Tolerance,Balance, Functional Activities, Functional Mobility,Gait, Integument,Pain,Posture,ROM, Sensation,Soft Tissue Mobility ,Strength,Transfers Goals Five Impairment gait Short Term Goal (STG) If appropriate, pt will be fit for LRAD for gait in order to demonstrate increased safety during ambulation, decreased fall risk, and activity tolerance STG Duration 6 weeks Retirement Goal (LTG) Pt will be able to ambulate with or without LRAD at least community distances in order to demonstrate improved activity tolerance, safety during gait, and decreased fall risk LTG Duration 12 weeks Four Impairment confidence, activity tolerance Impairment ABC scale 58% Retirement Goal (LTG) Pt will report > 65% confidence in not falling during ADLs in order to demonstrate improved ability to participate in community events and activities at home LTG Duration 12 weeks Three Impairment strength Impairment 5x STS 13 seconds Short Term Goal (STG) Pt will be able to perform at least 10 sit to stands without UE assistance or compensations from standard chair in order to demonstrate improved BLE strength for gait , balance, and transfers STG Duration 6 weeks Reference Library Assistant Goal (LTG) Pt will be able to perform 5x STS without UE assistance and without compensations in at elast 12.6 seconds (age- related norm) in order to demonstrates improved BLE strength for gait, balance, and transfers LTG Duration 12 weeks Two Impairment dynamic balance Impairment DGI 10/24 Short Term Goal (STG) Pt will increase DGI score to at least 15/24 in order to demonstrate improved dynamic balance during gait and exercise STG Duration 6 weeks Retirement Goal (LTG) Pt will increase DGI score to at least 19/24 in order to demonstrate improved dynamic balance during gait and exercise LTG Duration 12 weeks One Impairment balance Impairment Marrufo score 38/56 Short Term Goal (STG) Pt will increase Marrufo balance score to at least 45/56 in order to demonstrate improved balance without AD and decreased fall risk STG Duration 6 weeks Reference Library Assistant Goal (LTG) Pt will increase Marrufo balance score to at least 48/56 in order to demonstrate improved balance without AD and decreased fall risk LTG Duration 12 weeks Assessment Summary Assessment Pt is a 78 y.o. female presenting with gait and balance abnormalities. She has a hx of falls, including most recent in 2022. Pt does not use an AD, but would likely benefit from use of an AD for safety. She has impairments in gait, balance, strength, sensation, activity tolerance, and pain. Pt's global BLE strength is limited and she relies on trunk compensations to carryover her strength. Pt's 5x STS score is 13 seconds but she is unable to control her descent. Pt has difficulty performing stairs and requires visual assistance in addition to the rail for step-to pattern. Her gait is wide-based, antalgic with increased trunk sway and poor foot clearance. Pt's Marrufo balance score is 38/56 and her DGI score is 10/24, indicating increased fall risk and recommendation for AD use . PT educated pt on exam findings and plan of care. PT also educated pt on household safety to decrease fall risk and educated pt on recommendation of AD use for additional stability. Pt would benefit from skilled PT for global BLE strengthening, balance training, gait training, and cardiovascular endurance in order to improve activity tolerance and decrease fall risk. Physical Therapy Plan Frequency and Duration Frequency of Treatment 2x/Week Duration of treatment (weeks) 12 Plan of Care Start Date 02/29/24 Plan of Care End Date 05/27/24 Therapeutic Interventions Therapeutic Interventions Balance Training,Canalithic Repositioning,Gait Training, Home Exercise Program,Joint Mobilizations,Manual Therapy, Neuromuscular Re-education, Orthotic/Prosthetic Management ,Patient/Caregiver Education, Self-Care/Home Management,Soft Tissue Mobilization,Taping, Therapeutic Activities, Therapeutic Exercises, Vestibular Rehabilitation Modalities Cold Pack/Ice Massage,Hot Packs Next Visit Focus/Plan Next Note Type Treatment Note Next Visit Plan monitor vitals, fall risk STS training, biodex vs stepper, hip strength, ankle strength, calf stretch, stairs ; spc training -edu on use Plan of care: hip strength, endurance, balance, stairs
--- NOTE | 2024-03-03 15:39 | PT.OTN ---
Current Diagnoses Unsteadiness on feet (03/03/24) Other lack of coordination (03/03/24) Weakness (03/03/24) Unspecified fall, initial encounter (03/03/24) Physical Therapy Treatment Note PT-OP-A Visit Information Start: 02/29/24 13:47 Freq: Status: Active Protocol: Document 03/03/24 13:54 NM (Rec: 03/03/24 15:31 NM [id number]) Out-Patient Physical Therapy Visit Information Visit Information Visit Type Treatment Note Visit Start Time 13:52 Visit Stop Time 14:30 Visit Number 2 Evaluation Information Evaluation Date 02/29/24 Precautions Precautions blood pressure, fall risk PT-OP-B Current Condition Start: 02/29/24 13:47 Freq: Status: Active Protocol: Document 02/29/24 13:47 NM (Rec: 02/29/24 16:14 NM [id number]) Current Condition History of Current Condition Current Complaints mobility, balance, weakness, endurance History of Current Condition Pt presents with abnormalities of balance, gait, strength, and decreased endurance. She reports that she uses furniture and underwood to assist with balance. Does not use an AD despite being told that she should. Hx of falls, most recent last when tripping over an object. Denies vertigo, dizziness. Report tingling in feet, numbness in plantar surfaces bilaterally. PMH of breast cancer, blood clots, headaches , memory loss, shortness of breath. Reports blood pressure usually low; does not get dizzy with positional changes. No falls otherwise, only near misses. Has several stairs with rails leading up to house and several inside (3 levels) . Lives with 2 adult sons. Retired Treatment Goals Patient/Caregiver Goals get stronger, improve endurance Current Functional Impairments (Reported) Functional Limitations- ADL's dressing Functional Limitations- Mobility/Gait 1/8 mi or 3-4 blocks ambulation sitting stairs Functional Limitations- Work/School retired PT-OP-C Subjective Start: 02/29/24 13:47 Freq: Status: Active Protocol: Document 03/03/24 13:54 NM (Rec: 03/03/24 15:31 NM [id number]) OP-PT Subjective Patient Comments Patient Comments Pt reports no change from evaluation. States cant use spc because hurts lumbar spine . Reaching for underwood while walking into clinic PT-OP-D Balance Start: 02/29/24 13:47 Freq: Status: Active Protocol: Document 02/29/24 13:47 NM (Rec: 02/29/24 16:16 NM [id number]) Balance Tests Marrufo Balance Test Marrufo Balance Test Score 38/56 PT-OP-E Functional Tests Start: 02/29/24 13:47 Freq: Status: Active Protocol: Document 02/29/24 13:47 NM (Rec: 02/29/24 16:14 NM [id number]) Functional Tests Five Times Sit to Stand Test Score 13 seconds Comments uses momentum, poor form, no eccentric control PT-OP-F Manual Assessment Start: 02/29/24 13:47 Freq: Status: Active Protocol: Document 02/29/24 13:47 NM (Rec: 02/29/24 16:14 NM [id number]) Manual Assessments Soft Tissue Assessment Soft Tissue Mobility Assessment Decreased hip flexor length Joint Mobility Assessment Joint Mobility Assessment Decreased hip and trunk ROM PT-OP-G Mobility & Gait Start: 02/29/24 13:47 Freq: Status: Active Protocol: Document 02/29/24 13:47 NM (Rec: 02/29/24 16:14 NM [id number]) OP Gait Assessment Gait Gait Assistance Required: Standby Assistance Distance (Feet) 250 Assistive Devices Assistive Device None,Gait Belt Gait Deviations General Gait Pattern Antalgic,Decreased Feet Clearance,Flexed Trunk,Wide Based Gait Factors Limiting Gait Function Factors Limiting Gait Function Decreased Activity Tolerance, Decreased Sensation,Decreased Strength,Limited Range of Motion,Poor Balance Stair Climbing Evaluation Evaluation Level of Assist On Stairs Contact Guard Assistance Devices Stair Climbing Assistive Devices Left Railing Technique/Endurance Stair Climbing Direction Ascend and Descend Stair Climbing Technique Step to Step Number of Steps Climbed 4 Stair Climbing Set # Repetitions (reps) 2 Comments Stair Climbing Comments Poor descent control PT-OP-H Neuro Start: 02/29/24 13:47 Freq: Status: Active Protocol: Document 02/29/24 13:47 NM (Rec: 02/29/24 16:14 NM [id number]) Sensation Evaluation Comments Summary Comments BLE grossly intact to light touch sensation until plantar surface of foot. Numbness along plantar surface bilaterally PT-OP-J Posture/Palpation/Skin Start: 02/29/24 13:47 Freq: Status: Active Protocol: Document 02/29/24 13:47 NM (Rec: 02/29/24 16:14 NM [id number]) Posture Evaluation Position Standing Head/C-Spine Posture Forward Head T-Spine Posture Increased Kyphosis L-Spine Posture Increased Lordosis Pelvis Posture Anteriorly Tilted Hip Posture (L) Externally Rotated,(R) Externally Rotated Knee Posture (L) Genu Valgus,(R) Genu Valgus Ankle/Foot Posture (L) Pronated,(R) Pronated Foot Arch (L) Low Arch,(R) Low Arch Skin Assessment Other Assessments Skin Assessment Comments Multiple old bruises, purple hematomas from previous injuries along BLE PT-OP-K Range of Motion Start: 02/29/24 13:47 Freq: Status: Active Protocol: Document 02/29/24 13:47 NM (Rec: 02/29/24 16:14 NM [id number]) Ankle and Foot Goniometric Range of Motion Ankle and Foot ROM Limitations Comments Observable limitation in B ankle dorsiflexion PT-OP-M Strength Start: 02/29/24 13:47 Freq: Status: Active Protocol: Document 02/29/24 13:47 NM (Rec: 02/29/24 16:14 NM [id number]) Trunk Strength Trunk Manual Muscle Testing Flexion 3 Fair Extension 3 Fair Rotation Left 3 Fair Rotation Right 3 Fair Lateral Flexion Left 3 Fair Lateral Flexion Right 3 Fair Hip Strength Hip Manual Muscle Testing Right Flexion (L2) 3+ Fair+ Extension (S1) 3+ Fair+ Abduction 3+ Fair+ Left Flexion (L2) 3+ Fair+ Extension (S1) 3+ Fair+ Abduction 3+ Fair+ Knee Strength Knee Manual Muscle Testing Right Flexion (S2) 4- Good- Extension (L3) 4- Good- Left Flexion (S2) 4- Good- Extension (L3) 4- Good- Ankle/Foot Strength Ankle and Foot Manual Muscle Testing Right Dorsiflexion (L4) 4- Good- Plantarflexion (S1) 3 Fair Comments Plantarflexion tested in sitting Left Dorsiflexion (L4) 4- Good- Plantarflexion (S1) 3 Fair Comments Plantarflexion tested in sitting PT-OP-Q Treatments Start: 02/29/24 13:47 Freq: Status: Active Protocol: Document 03/03/24 13:54 NM (Rec: 03/03/24 15:31 NM [id number]) Therapeutic Exercises Sitting Exercises lat push up Side bilateral Equipment Used mesh chair with arm rest Reps/Minutes 2x8 ea Comments cued for form hip abduction Sitting Exercise Name 1. isometric, 2. clams with slider to side Side bilateral Resistance level 3 band around thighs Reps/Minutes 1. 2x30, 2. 2x10 Comments positive feedback for exercise ; cued no trunk lean away Standing Exercises calf stretch Side bilateral Equipment Used AMANDA Reps/Minutes 60 Comments didn't know these were that tight, positive feedback to stretch Therapeutic Activity Therapeutic Activity diaphragmatic breathing Reps/Minutes 3 minutes, between exercises Comments Hand on abdomen and chest, cued for chest hand to move less to limit accessory breathing sit to stand Reps/Minutes 2x10 Comments Arms across chest, cued for anterior weight shift, sit closer to the edge. Cued for eccentric control with lowering, charlie at end range and less of trunk flexion for safety fatiguing, requires increased time Gait Training Gait Activity trek poles Device Used 2 trek poles Level of Assistance CGA > close SBA Surface stable Distance/Duration 284 ft Treatment Focus stability, 4pt sequencing Comments Cued for sequencing, foot clearance. Demos better upright posture, trunk stability and stance stability with larger step length. Improved sequencing with reps. Self-Care/Home Management Treatment Education Patient Education Fall Risk,Home Exercise Program,Safety Other Education Educated on purchase and use of trek poles for stability/ safety during gait, decrease fall risk HEP: STS, hip abd with band PT-OP-T Assessment and Plan Start: 02/29/24 13:47 Freq: Status: Active Protocol: Document 03/03/24 13:54 NM (Rec: 03/03/24 15:31 NM [id number]) Physical Therapy Assessment Goals Five Impairment gait Short Term Goal (STG) If appropriate, pt will be fit for LRAD for gait in order to demonstrate increased safety during ambulation, decreased fall risk, and activity tolerance STG Duration 6 weeks Retirement Goal (LTG) Pt will be able to ambulate with or without LRAD at least community distances in order to demonstrate improved activity tolerance, safety during gait, and decreased fall risk LTG Duration 12 weeks Four Impairment confidence, activity tolerance Impairment ABC scale 58% Roll Or Tape Edge Machine Operator Goal (LTG) Pt will report > 65% confidence in not falling during ADLs in order to demonstrate improved ability to participate in community events and activities at home LTG Duration 12 weeks Three Impairment strength Impairment 5x STS 13 seconds Short Term Goal (STG) Pt will be able to perform at least 10 sit to stands without UE assistance or compensations from standard chair in order to demonstrate improved BLE strength for gait , balance, and transfers STG Duration 6 weeks Roll Or Tape Edge Machine Operator Goal (LTG) Pt will be able to perform 5x STS without UE assistance and without compensations in at elast 12.6 seconds (age- related norm) in order to demonstrates improved BLE strength for gait, balance, and transfers LTG Duration 12 weeks Two Impairment dynamic balance Impairment DGI 10/24 Short Term Goal (STG) Pt will increase DGI score to at least 15/24 in order to demonstrate improved dynamic balance during gait and exercise STG Duration 6 weeks Roll Or Tape Edge Machine Operator Goal (LTG) Pt will increase DGI score to at least 19/24 in order to demonstrate improved dynamic balance during gait and exercise LTG Duration 12 weeks One Impairment balance Impairment Marrufo score 38/56 Short Term Goal (STG) Pt will increase Marrufo balance score to at least 45/56 in order to demonstrate improved balance without AD and decreased fall risk STG Duration 6 weeks Roll Or Tape Edge Machine Operator Goal (LTG) Pt will increase Marrufo balance score to at least 48/56 in order to demonstrate improved balance without AD and decreased fall risk LTG Duration 12 weeks Assessment Summary Assessment Pt tolerated session well but fatigues easily and requires rest breaks. Session emphasis on improving glute strength and sit to stand. Pt demonstrates improved sit to stand compared to evaluation without UE assistance; however , cued for form, control with eccentric lowering, and to not use hamstrings to assist with ascent. Pt utilizes trunk to assist with hip abduction without cueing; able to perform correctly when verbally cued to maintain upright posture. Pt requires increased time with all activities. PT educated on diaphragmatic breathing to assist with pt shortness of breath, using verbal and tactile cueing. Initiated gait training with 2 trek poles using 4 pt pattern. Cued for foot clearance. Pt demos improved stability with additional points. PT educated pt on use of AD for stability during both household and community ambulation, recommending 1-2 trek poles if not agreeable to spc use. Pt verbalizes agreement and plans to purchase. Pt would benefit from skilled PT for global strengthening, gait, and balance training to decrease fall risk, improve endurance, and improve activity tolerance . Physical Therapy Plan Frequency and Duration Frequency of Treatment 2x/Week Duration of treatment (weeks) 12 Plan of Care Start Date 02/29/24 Plan of Care End Date 05/27/24 Therapeutic Interventions Therapeutic Interventions Balance Training,Canalithic Repositioning,Gait Training, Home Exercise Program,Joint Mobilizations,Manual Therapy, Neuromuscular Re-education, Orthotic/Prosthetic Management ,Patient/Caregiver Education, Self-Care/Home Management,Soft Tissue Mobilization,Taping, Therapeutic Activities, Therapeutic Exercises, Vestibular Rehabilitation Modalities Cold Pack/Ice Massage,Hot Packs Next Visit Focus/Plan Next Note Type Treatment Note Next Visit Plan monitor vitals, fall risk ask if pt purchase trek poles. STS training, biodex vs stepper depending on energy, hip strength, ankle strength, calf stretch, stairs; balance training, spc training -edu on use Plan of care: hip strength, endurance, balance, stairs
--- NOTE | 2024-03-07 14:49 | PT.OTN ---
Current Diagnoses Unsteadiness on feet (03/07/24) Other lack of coordination (03/07/24) Weakness (03/07/24) Unspecified fall, initial encounter (03/07/24) Physical Therapy Treatment Note PT-OP-A Visit Information Start: 02/29/24 13:47 Freq: Status: Active Protocol: Document 03/07/24 12:49 AB (Rec: 03/07/24 14:48 AB [id number]) Out-Patient Physical Therapy Visit Information Visit Information Visit Type Treatment Note Visit Start Time 13:48 Visit Stop Time 14:30 Visit Number 3 Number of HEDGE FUND MANAGER Visits 1 Evaluation Information Evaluation Date 02/29/24 Precautions Precautions blood pressure, fall risk PT-OP-B Current Condition Start: 02/29/24 13:47 Freq: Status: Active Protocol: Document 02/29/24 13:47 NM (Rec: 02/29/24 16:14 NM [id number]) Current Condition History of Current Condition Current Complaints mobility, balance, weakness, endurance History of Current Condition Pt presents with abnormalities of balance, gait, strength, and decreased endurance. She reports that she uses furniture and underwood to assist with balance. Does not use an AD despite being told that she should. Hx of falls, most recent last when tripping over an object. Denies vertigo, dizziness. Report tingling in feet, numbness in plantar surfaces bilaterally. PMH of breast cancer, blood clots, headaches , memory loss, shortness of breath. Reports blood pressure usually low; does not get dizzy with positional changes. No falls otherwise, only near misses. Has several stairs with rails leading up to house and several inside (3 levels) . Lives with 2 adult sons. Retired Treatment Goals Patient/Caregiver Goals get stronger, improve endurance Current Functional Impairments (Reported) Functional Limitations- ADL's dressing Functional Limitations- Mobility/Gait 1/8 mi or 3-4 blocks ambulation sitting stairs Functional Limitations- Work/School retired PT-OP-C Subjective Start: 02/29/24 13:47 Freq: Status: Active Protocol: Document 03/07/24 12:49 AB (Rec: 03/07/24 14:48 AB [id number]) OP-PT Subjective Patient Comments Patient Comments Patient reports BP was 96/67 yesterday and she didn't get much done. Patient ambulates with excessive ipsilateral trunk sidebend bilaterally. sit to stand with UE use. Patient reports she did the 3X10 for sit to stand one session Thursday and Thursday, none Thursday. Patient reports she did not do 3X10 at each meal. Patient advised once a day for 3X10 or X10 only 3 X a day. Seated BP 110/68 HR 85 BPM . Patient reports she did not get her trecking poles yet due to places she checked were too expensive, but does plan to buy the poles at [employer]. PT-OP-D Balance Start: 02/29/24 13:47 Freq: Status: Active Protocol: Document 02/29/24 13:47 NM (Rec: 02/29/24 16:16 NM [id number]) Balance Tests Marrufo Balance Test Marrufo Balance Test Score 38/56 PT-OP-E Functional Tests Start: 02/29/24 13:47 Freq: Status: Active Protocol: Document 02/29/24 13:47 NM (Rec: 02/29/24 16:14 NM [id number]) Functional Tests Five Times Sit to Stand Test Score 13 seconds Comments uses momentum, poor form, no eccentric control PT-OP-F Manual Assessment Start: 02/29/24 13:47 Freq: Status: Active Protocol: Document 02/29/24 13:47 NM (Rec: 02/29/24 16:14 NM [id number]) Manual Assessments Soft Tissue Assessment Soft Tissue Mobility Assessment Decreased hip flexor length Joint Mobility Assessment Joint Mobility Assessment Decreased hip and trunk ROM PT-OP-G Mobility & Gait Start: 02/29/24 13:47 Freq: Status: Active Protocol: Document 02/29/24 13:47 NM (Rec: 02/29/24 16:14 NM [id number]) OP Gait Assessment Gait Gait Assistance Required: Standby Assistance Distance (Feet) 250 Assistive Devices Assistive Device None,Gait Belt Gait Deviations General Gait Pattern Antalgic,Decreased Feet Clearance,Flexed Trunk,Wide Based Gait Factors Limiting Gait Function Factors Limiting Gait Function Decreased Activity Tolerance, Decreased Sensation,Decreased Strength,Limited Range of Motion,Poor Balance Stair Climbing Evaluation Evaluation Level of Assist On Stairs Contact Guard Assistance Devices Stair Climbing Assistive Devices Left Railing Technique/Endurance Stair Climbing Direction Ascend and Descend Stair Climbing Technique Step to Step Number of Steps Climbed 4 Stair Climbing Set # Repetitions (reps) 2 Comments Stair Climbing Comments Poor descent control PT-OP-H Neuro Start: 02/29/24 13:47 Freq: Status: Active Protocol: Document 02/29/24 13:47 NM (Rec: 02/29/24 16:14 NM [id number]) Sensation Evaluation Comments Summary Comments BLE grossly intact to light touch sensation until plantar surface of foot. Numbness along plantar surface bilaterally PT-OP-J Posture/Palpation/Skin Start: 02/29/24 13:47 Freq: Status: Active Protocol: Document 02/29/24 13:47 NM (Rec: 02/29/24 16:14 NM [id number]) Posture Evaluation Position Standing Head/C-Spine Posture Forward Head T-Spine Posture Increased Kyphosis L-Spine Posture Increased Lordosis Pelvis Posture Anteriorly Tilted Hip Posture (L) Externally Rotated,(R) Externally Rotated Knee Posture (L) Genu Valgus,(R) Genu Valgus Ankle/Foot Posture (L) Pronated,(R) Pronated Foot Arch (L) Low Arch,(R) Low Arch Skin Assessment Other Assessments Skin Assessment Comments Multiple old bruises, purple hematomas from previous injuries along BLE PT-OP-K Range of Motion Start: 02/29/24 13:47 Freq: Status: Active Protocol: Document 02/29/24 13:47 NM (Rec: 02/29/24 16:14 NM [id number]) Ankle and Foot Goniometric Range of Motion Ankle and Foot ROM Limitations Comments Observable limitation in B ankle dorsiflexion PT-OP-M Strength Start: 02/29/24 13:47 Freq: Status: Active Protocol: Document 02/29/24 13:47 NM (Rec: 02/29/24 16:14 NM [id number]) Trunk Strength Trunk Manual Muscle Testing Flexion 3 Fair Extension 3 Fair Rotation Left 3 Fair Rotation Right 3 Fair Lateral Flexion Left 3 Fair Lateral Flexion Right 3 Fair Hip Strength Hip Manual Muscle Testing Right Flexion (L2) 3+ Fair+ Extension (S1) 3+ Fair+ Abduction 3+ Fair+ Left Flexion (L2) 3+ Fair+ Extension (S1) 3+ Fair+ Abduction 3+ Fair+ Knee Strength Knee Manual Muscle Testing Right Flexion (S2) 4- Good- Extension (L3) 4- Good- Left Flexion (S2) 4- Good- Extension (L3) 4- Good- Ankle/Foot Strength Ankle and Foot Manual Muscle Testing Right Dorsiflexion (L4) 4- Good- Plantarflexion (S1) 3 Fair Comments Plantarflexion tested in sitting Left Dorsiflexion (L4) 4- Good- Plantarflexion (S1) 3 Fair Comments Plantarflexion tested in sitting PT-OP-Q Treatments Start: 02/29/24 13:47 Freq: Status: Active Protocol: Document 03/07/24 12:49 AB (Rec: 03/07/24 14:48 AB [id number]) Therapeutic Exercises Sitting Exercises hip abduction Sitting Exercise Name 1. isometric, 2. clams with slider to side Side bilateral Resistance level 3 band around thighs Reps/Minutes 1. 60 seconds, 2. 2x10 Standing Exercises sit to stand with band Resistance level 3 light green band Reps/Minutes 10 X 3 Comments Monitored for pain and SOB side stepping Side bilateral Resistance level 3 band above knees Reps/Minutes 10 feet left and right X 3 Comments verbal cues to avoid toeing out calf stretch Standing Exercise Name with knees straight and knees bent Side bilateral Equipment Used AMANDA Reps/Minutes 60 X 2 each stretch each LE Neuro Re-Education Treatment Balance Activities SLS Details CGA with visual scanning and head turns Surface floor Reps/Duration 2 min practice marching Details CGA Surface large blue cushion Reps/Duration X10 step up taps Equipment 6 inch step Reps/Duration X10 Comments CGA tandem stepping Details CGA/ hands above bars Reps/Duration 10 feet X 6 Comments Verbal cues PT-OP-T Assessment and Plan Start: 02/29/24 13:47 Freq: Status: Active Protocol: Document 03/07/24 12:49 AB (Rec: 03/07/24 14:48 AB [id number]) Physical Therapy Assessment Goals Five Impairment gait Short Term Goal (STG) If appropriate, pt will be fit for LRAD for gait in order to demonstrate increased safety during ambulation, decreased fall risk, and activity tolerance STG Duration 6 weeks Patient Intake Representative Goal (LTG) Pt will be able to ambulate with or without LRAD at least community distances in order to demonstrate improved activity tolerance, safety during gait, and decreased fall risk LTG Duration 12 weeks Four Impairment confidence, activity tolerance Impairment ABC scale 58% Assisted Goal (LTG) Pt will report > 65% confidence in not falling during ADLs in order to demonstrate improved ability to participate in community events and activities at home LTG Duration 12 weeks Three Impairment strength Impairment 5x STS 13 seconds Short Term Goal (STG) Pt will be able to perform at least 10 sit to stands without UE assistance or compensations from standard chair in order to demonstrate improved BLE strength for gait , balance, and transfers STG Duration 6 weeks Patient Intake Representative Goal (LTG) Pt will be able to perform 5x STS without UE assistance and without compensations in at elast 12.6 seconds (age- related norm) in order to demonstrates improved BLE strength for gait, balance, and transfers LTG Duration 12 weeks Two Impairment dynamic balance Impairment DGI 10/24 Short Term Goal (STG) Pt will increase DGI score to at least 15/24 in order to demonstrate improved dynamic balance during gait and exercise STG Duration 6 weeks Patient Intake Representative Goal (LTG) Pt will increase DGI score to at least 19/24 in order to demonstrate improved dynamic balance during gait and exercise LTG Duration 12 weeks One Impairment balance Impairment Marrufo score 38/56 Short Term Goal (STG) Pt will increase Marrufo balance score to at least 45/56 in order to demonstrate improved balance without AD and decreased fall risk STG Duration 6 weeks Assisted Goal (LTG) Pt will increase Marrufo balance score to at least 48/56 in order to demonstrate improved balance without AD and decreased fall risk LTG Duration 12 weeks Assessment Summary Assessment Noted decreased ipsilateral trunk sidebend bilaterally ambulating out of session without device. SLS without UE use continues to be significantly limited. Physical Therapy Plan Frequency and Duration Frequency of Treatment 2x/Week Duration of treatment (weeks) 12 Plan of Care Start Date 02/29/24 Plan of Care End Date 05/27/24 Next Visit Focus/Plan Next Note Type Treatment Note Next Visit Plan monitor vitals, fall risk ask if pt purchase trek poles. STS training, biodex vs stepper depending on energy, hip strength, ankle strength, calf stretch, stairs; balance training, spc training -edu on use Plan of care: hip strength, endurance, balance, stairs
--- NOTE | 2024-03-10 16:16 | PT.OTN ---
Current Diagnoses Unsteadiness on feet (03/10/24) Other lack of coordination (03/10/24) Weakness (03/10/24) Unspecified fall, initial encounter (03/10/24) Physical Therapy Treatment Note PT-OP-A Visit Information Start: 02/29/24 13:47 Freq: Status: Active Protocol: Document 03/10/24 14:09 AB (Rec: 03/10/24 16:16 AB [id number]) Out-Patient Physical Therapy Visit Information Visit Information Visit Type Treatment Note Visit Start Time 13:48 Visit Stop Time 14:30 Visit Number 4 Number of SEAFOOD SPECIALIST Visits 2 Evaluation Information Evaluation Date 02/29/24 Precautions Precautions blood pressure, fall risk PT-OP-B Current Condition Start: 02/29/24 13:47 Freq: Status: Active Protocol: Document 02/29/24 13:47 NM (Rec: 02/29/24 16:14 NM [id number]) Current Condition History of Current Condition Current Complaints mobility, balance, weakness, endurance History of Current Condition Pt presents with abnormalities of balance, gait, strength, and decreased endurance. She reports that she uses furniture and underwood to assist with balance. Does not use an AD despite being told that she should. Hx of falls, most recent last when tripping over an object. Denies vertigo, dizziness. Report tingling in feet, numbness in plantar surfaces bilaterally. PMH of breast cancer, blood clots, headaches , memory loss, shortness of breath. Reports blood pressure usually low; does not get dizzy with positional changes. No falls otherwise, only near misses. Has several stairs with rails leading up to house and several inside (3 levels) . Lives with 2 adult sons. Retired Treatment Goals Patient/Caregiver Goals get stronger, improve endurance Current Functional Impairments (Reported) Functional Limitations- ADL's dressing Functional Limitations- Mobility/Gait 1/8 mi or 3-4 blocks ambulation sitting stairs Functional Limitations- Work/School retired PT-OP-C Subjective Start: 02/29/24 13:47 Freq: Status: Active Protocol: Document 03/10/24 14:09 AB (Rec: 03/10/24 16:16 AB [id number]) OP-PT Subjective Patient Comments Patient Comments Patient comments that she accomplished her exercises, reports her hips and back have been more achy in the morning . Patient requests help with her trekking poles/adjutement. BP seated left UE 117/71 HR 75 BPM PT-OP-D Balance Start: 02/29/24 13:47 Freq: Status: Active Protocol: Document 02/29/24 13:47 NM (Rec: 02/29/24 16:16 NM [id number]) Balance Tests Marrufo Balance Test Marrufo Balance Test Score 38/56 PT-OP-E Functional Tests Start: 02/29/24 13:47 Freq: Status: Active Protocol: Document 02/29/24 13:47 NM (Rec: 02/29/24 16:14 NM [id number]) Functional Tests Five Times Sit to Stand Test Score 13 seconds Comments uses momentum, poor form, no eccentric control PT-OP-F Manual Assessment Start: 02/29/24 13:47 Freq: Status: Active Protocol: Document 02/29/24 13:47 NM (Rec: 02/29/24 16:14 NM [id number]) Manual Assessments Soft Tissue Assessment Soft Tissue Mobility Assessment Decreased hip flexor length Joint Mobility Assessment Joint Mobility Assessment Decreased hip and trunk ROM PT-OP-G Mobility & Gait Start: 02/29/24 13:47 Freq: Status: Active Protocol: Document 02/29/24 13:47 NM (Rec: 02/29/24 16:14 NM [id number]) OP Gait Assessment Gait Gait Assistance Required: Standby Assistance Distance (Feet) 250 Assistive Devices Assistive Device None,Gait Belt Gait Deviations General Gait Pattern Antalgic,Decreased Feet Clearance,Flexed Trunk,Wide Based Gait Factors Limiting Gait Function Factors Limiting Gait Function Decreased Activity Tolerance, Decreased Sensation,Decreased Strength,Limited Range of Motion,Poor Balance Stair Climbing Evaluation Evaluation Level of Assist On Stairs Contact Guard Assistance Devices Stair Climbing Assistive Devices Left Railing Technique/Endurance Stair Climbing Direction Ascend and Descend Stair Climbing Technique Step to Step Number of Steps Climbed 4 Stair Climbing Set # Repetitions (reps) 2 Comments Stair Climbing Comments Poor descent control PT-OP-H Neuro Start: 02/29/24 13:47 Freq: Status: Active Protocol: Document 02/29/24 13:47 NM (Rec: 02/29/24 16:14 NM [id number]) Sensation Evaluation Comments Summary Comments BLE grossly intact to light touch sensation until plantar surface of foot. Numbness along plantar surface bilaterally PT-OP-J Posture/Palpation/Skin Start: 02/29/24 13:47 Freq: Status: Active Protocol: Document 02/29/24 13:47 NM (Rec: 02/29/24 16:14 NM [id number]) Posture Evaluation Position Standing Head/C-Spine Posture Forward Head T-Spine Posture Increased Kyphosis L-Spine Posture Increased Lordosis Pelvis Posture Anteriorly Tilted Hip Posture (L) Externally Rotated,(R) Externally Rotated Knee Posture (L) Genu Valgus,(R) Genu Valgus Ankle/Foot Posture (L) Pronated,(R) Pronated Foot Arch (L) Low Arch,(R) Low Arch Skin Assessment Other Assessments Skin Assessment Comments Multiple old bruises, purple hematomas from previous injuries along BLE PT-OP-K Range of Motion Start: 02/29/24 13:47 Freq: Status: Active Protocol: Document 02/29/24 13:47 NM (Rec: 02/29/24 16:14 NM [id number]) Ankle and Foot Goniometric Range of Motion Ankle and Foot ROM Limitations Comments Observable limitation in B ankle dorsiflexion PT-OP-M Strength Start: 02/29/24 13:47 Freq: Status: Active Protocol: Document 02/29/24 13:47 NM (Rec: 02/29/24 16:14 NM [id number]) Trunk Strength Trunk Manual Muscle Testing Flexion 3 Fair Extension 3 Fair Rotation Left 3 Fair Rotation Right 3 Fair Lateral Flexion Left 3 Fair Lateral Flexion Right 3 Fair Hip Strength Hip Manual Muscle Testing Right Flexion (L2) 3+ Fair+ Extension (S1) 3+ Fair+ Abduction 3+ Fair+ Left Flexion (L2) 3+ Fair+ Extension (S1) 3+ Fair+ Abduction 3+ Fair+ Knee Strength Knee Manual Muscle Testing Right Flexion (S2) 4- Good- Extension (L3) 4- Good- Left Flexion (S2) 4- Good- Extension (L3) 4- Good- Ankle/Foot Strength Ankle and Foot Manual Muscle Testing Right Dorsiflexion (L4) 4- Good- Plantarflexion (S1) 3 Fair Comments Plantarflexion tested in sitting Left Dorsiflexion (L4) 4- Good- Plantarflexion (S1) 3 Fair Comments Plantarflexion tested in sitting PT-OP-Q Treatments Start: 02/29/24 13:47 Freq: Status: Active Protocol: Document 03/10/24 14:09 AB (Rec: 03/10/24 16:16 AB [id number]) Therapeutic Exercises Sitting Exercises hip abduction Sitting Exercise Name 1. isometric, 2. clams with slider to side Side bilateral Resistance level 2 then level one band Reps/Minutes 60 seconds X 1 and X 10 each exercise Standing Exercises sit to stand with band Resistance level one Reps/Minutes 2X10 Comments reviewed hip hinge/patient ed use of self tactile cues for hip hinge Gait Training Gait Activity trek poles Device Used 2 poles Level of Assistance close supervision Surface stable Distance/Duration 15 feet X2, ascending and descending 6 four inch steps with poles X2 Comments Poles adjusted for height. Stairs performed with poles then with pole and rail Neuro Re-Education Treatment Balance Activities retro Details CGA/ hands above bars Reps/Duration 10 feet X 2 Comments takes very small steps hurdles Details CGA/ hands above bars Reps/Duration 10 feet X 6 Comments Verbal and visual cues step up taps Equipment 6 inch step Reps/Duration X10 Comments CGA tandem stepping Details CGA/ hands above bars Reps/Duration 10 feet X 6 Comments Verbal cues PT-OP-T Assessment and Plan Start: 02/29/24 13:47 Freq: Status: Active Protocol: Document 03/10/24 14:09 AB (Rec: 03/10/24 16:16 AB [id number]) Physical Therapy Assessment Goals Five Impairment gait Short Term Goal (STG) If appropriate, pt will be fit for LRAD for gait in order to demonstrate increased safety during ambulation, decreased fall risk, and activity tolerance STG Duration 6 weeks Branding Machine Tender Goal (LTG) Pt will be able to ambulate with or without LRAD at least community distances in order to demonstrate improved activity tolerance, safety during gait, and decreased fall risk LTG Duration 12 weeks Four Impairment confidence, activity tolerance Impairment ABC scale 58% Branding Machine Tender Goal (LTG) Pt will report > 65% confidence in not falling during ADLs in order to demonstrate improved ability to participate in community events and activities at home LTG Duration 12 weeks Three Impairment strength Impairment 5x STS 13 seconds Short Term Goal (STG) Pt will be able to perform at least 10 sit to stands without UE assistance or compensations from standard chair in order to demonstrate improved BLE strength for gait , balance, and transfers STG Duration 6 weeks Chcf Goal (LTG) Pt will be able to perform 5x STS without UE assistance and without compensations in at elast 12.6 seconds (age- related norm) in order to demonstrates improved BLE strength for gait, balance, and transfers LTG Duration 12 weeks Two Impairment dynamic balance Impairment DGI 10/24 Short Term Goal (STG) Pt will increase DGI score to at least 15/24 in order to demonstrate improved dynamic balance during gait and exercise STG Duration 6 weeks Chcf Goal (LTG) Pt will increase DGI score to at least 19/24 in order to demonstrate improved dynamic balance during gait and exercise LTG Duration 12 weeks One Impairment balance Impairment Marrufo score 38/56 Short Term Goal (STG) Pt will increase Marrufo balance score to at least 45/56 in order to demonstrate improved balance without AD and decreased fall risk STG Duration 6 weeks Branding Machine Tender Goal (LTG) Pt will increase Marrufo balance score to at least 48/56 in order to demonstrate improved balance without AD and decreased fall risk LTG Duration 12 weeks Assessment Summary Assessment Sveta was able to ascend and descend 4 inch steps with 2 trekking poles and pole and rail with good technique and supervision this session. Balance and LE strength continues to be limited impacting functional mobility. Physical Therapy Plan Frequency and Duration Frequency of Treatment 2x/Week Duration of treatment (weeks) 12 Plan of Care Start Date 02/29/24 Plan of Care End Date 05/27/24 Next Visit Focus/Plan Next Note Type Treatment Note Next Visit Plan monitor vitals, fall risk ask if edger machine setter band decreased hip and back pain STS training, biodex vs stepper depending on energy, hip strength, ankle strength, calf stretch, stairs; balance training, spc training -[employer] on use Plan of care: hip strength, endurance, balance, stairs
--- NOTE | 2024-03-17 15:07 | PT-OP ANOTE ---
NO SHOW- PT called and spoke to pt at 1500. Pt forgot that she had an appt today. PT offered pt an available appt slot tomorrow, but pt declined due to visiting family in town. PT reminded pt of next appt date and time. Pt verbalized confirmation of appt, has an appt list, and reports that she has been compliant with exercises.
--- NOTE | 2024-03-29 14:31 | PT.OTN ---
Current Diagnoses Unsteadiness on feet (03/29/24) Other lack of coordination (03/29/24) Weakness (03/29/24) Unspecified fall, initial encounter (03/29/24) Physical Therapy Treatment Note PT-OP-A Visit Information Start: 02/29/24 13:47 Freq: Status: Active Protocol: Document 03/29/24 13:51 SP (Rec: 03/29/24 14:56 SP [id number]) Out-Patient Physical Therapy Visit Information Visit Information Visit Type Treatment Note Visit Start Time 13:51 Visit Stop Time 14:31 Visit Number 5 Number of TECHNOLOGY ADMINISTRATOR Visits 3 Evaluation Information Evaluation Date 02/29/24 Precautions Precautions blood pressure, fall risk PT-OP-B Current Condition Start: 02/29/24 13:47 Freq: Status: Active Protocol: Document 02/29/24 13:47 NM (Rec: 02/29/24 16:14 NM [id number]) Current Condition History of Current Condition Current Complaints mobility, balance, weakness, endurance History of Current Condition Pt presents with abnormalities of balance, gait, strength, and decreased endurance. She reports that she uses furniture and underwood to assist with balance. Does not use an AD despite being told that she should. Hx of falls, most recent last when tripping over an object. Denies vertigo, dizziness. Report tingling in feet, numbness in plantar surfaces bilaterally. PMH of breast cancer, blood clots, headaches , memory loss, shortness of breath. Reports blood pressure usually low; does not get dizzy with positional changes. No falls otherwise, only near misses. Has several stairs with rails leading up to house and several inside (3 levels) . Lives with 2 adult sons. Retired Treatment Goals Patient/Caregiver Goals get stronger, improve endurance Current Functional Impairments (Reported) Functional Limitations- ADL's dressing Functional Limitations- Mobility/Gait 1/8 mi or 3-4 blocks ambulation sitting stairs Functional Limitations- Work/School retired PT-OP-C Subjective Start: 02/29/24 13:47 Freq: Status: Active Protocol: Document 03/29/24 13:51 SP (Rec: 03/29/24 14:56 SP [id number]) OP-PT Subjective Patient Comments Patient Comments Pt reports doing HEP except past 2 days, busy, using anvik green band now bettter effort reported. SHe stated not seeing significant improvement in pain in knees. SHe states achy in am down R leg normal with lumbar vertebra, had adjusment yesterday, Chiropractor Marisela, helped but not fully eliminate pain so will make another appt. She stopped using trek poles due to making her feel dizzy looking down patterning. Is walking with no AD 1/2 block and back daily. She arrives pretty lateral lean and reach out to side for wall support, provided SBA. PT-OP-D Balance Start: 02/29/24 13:47 Freq: Status: Active Protocol: Document 02/29/24 13:47 NM (Rec: 02/29/24 16:16 NM [id number]) Balance Tests Marrufo Balance Test Marrufo Balance Test Score 38/56 PT-OP-E Functional Tests Start: 02/29/24 13:47 Freq: Status: Active Protocol: Document 02/29/24 13:47 NM (Rec: 02/29/24 16:14 NM [id number]) Functional Tests Five Times Sit to Stand Test Score 13 seconds Comments uses momentum, poor form, no eccentric control PT-OP-F Manual Assessment Start: 02/29/24 13:47 Freq: Status: Active Protocol: Document 02/29/24 13:47 NM (Rec: 02/29/24 16:14 NM [id number]) Manual Assessments Soft Tissue Assessment Soft Tissue Mobility Assessment Decreased hip flexor length Joint Mobility Assessment Joint Mobility Assessment Decreased hip and trunk ROM PT-OP-G Mobility & Gait Start: 02/29/24 13:47 Freq: Status: Active Protocol: Document 02/29/24 13:47 NM (Rec: 02/29/24 16:14 NM [id number]) OP Gait Assessment Gait Gait Assistance Required: Standby Assistance Distance (Feet) 250 Assistive Devices Assistive Device None,Gait Belt Gait Deviations General Gait Pattern Antalgic,Decreased Feet Clearance,Flexed Trunk,Wide Based Gait Factors Limiting Gait Function Factors Limiting Gait Function Decreased Activity Tolerance, Decreased Sensation,Decreased Strength,Limited Range of Motion,Poor Balance Stair Climbing Evaluation Evaluation Level of Assist On Stairs Contact Guard Assistance Devices Stair Climbing Assistive Devices Left Railing Technique/Endurance Stair Climbing Direction Ascend and Descend Stair Climbing Technique Step to Step Number of Steps Climbed 4 Stair Climbing Set # Repetitions (reps) 2 Comments Stair Climbing Comments Poor descent control PT-OP-H Neuro Start: 02/29/24 13:47 Freq: Status: Active Protocol: Document 02/29/24 13:47 NM (Rec: 02/29/24 16:14 NM [id number]) Sensation Evaluation Comments Summary Comments BLE grossly intact to light touch sensation until plantar surface of foot. Numbness along plantar surface bilaterally PT-OP-J Posture/Palpation/Skin Start: 02/29/24 13:47 Freq: Status: Active Protocol: Document 02/29/24 13:47 NM (Rec: 02/29/24 16:14 NM [id number]) Posture Evaluation Position Standing Head/C-Spine Posture Forward Head T-Spine Posture Increased Kyphosis L-Spine Posture Increased Lordosis Pelvis Posture Anteriorly Tilted Hip Posture (L) Externally Rotated,(R) Externally Rotated Knee Posture (L) Genu Valgus,(R) Genu Valgus Ankle/Foot Posture (L) Pronated,(R) Pronated Foot Arch (L) Low Arch,(R) Low Arch Skin Assessment Other Assessments Skin Assessment Comments Multiple old bruises, purple hematomas from previous injuries along BLE PT-OP-K Range of Motion Start: 02/29/24 13:47 Freq: Status: Active Protocol: Document 02/29/24 13:47 NM (Rec: 02/29/24 16:14 NM [id number]) Ankle and Foot Goniometric Range of Motion Ankle and Foot ROM Limitations Comments Observable limitation in B ankle dorsiflexion PT-OP-M Strength Start: 02/29/24 13:47 Freq: Status: Active Protocol: Document 02/29/24 13:47 NM (Rec: 02/29/24 16:14 NM [id number]) Trunk Strength Trunk Manual Muscle Testing Flexion 3 Fair Extension 3 Fair Rotation Left 3 Fair Rotation Right 3 Fair Lateral Flexion Left 3 Fair Lateral Flexion Right 3 Fair Hip Strength Hip Manual Muscle Testing Right Flexion (L2) 3+ Fair+ Extension (S1) 3+ Fair+ Abduction 3+ Fair+ Left Flexion (L2) 3+ Fair+ Extension (S1) 3+ Fair+ Abduction 3+ Fair+ Knee Strength Knee Manual Muscle Testing Right Flexion (S2) 4- Good- Extension (L3) 4- Good- Left Flexion (S2) 4- Good- Extension (L3) 4- Good- Ankle/Foot Strength Ankle and Foot Manual Muscle Testing Right Dorsiflexion (L4) 4- Good- Plantarflexion (S1) 3 Fair Comments Plantarflexion tested in sitting Left Dorsiflexion (L4) 4- Good- Plantarflexion (S1) 3 Fair Comments Plantarflexion tested in sitting PT-OP-Q Treatments Start: 02/29/24 13:47 Freq: Status: Active Protocol: Document 03/29/24 13:51 SP (Rec: 03/29/24 14:56 SP [id number]) Therapeutic Exercises Sitting Exercises hip abduction Sitting Exercise Name 1. isometric, 2. clamshell Side bilateral Resistance level 2>3 TB Reps/Minutes 60 seconds X1 , 3X 10 each exercise Comments good form, muscle tiring. Standing Exercises lateral step down Standing Exercise Name trialed in PT (check next tx, if ok add to HEP /c HO) Side bilateral Equipment Used rail support Reps/Minutes x10 each Comments improved decrease UE support and glut&hip abd drive sit to stand with band Standing Exercise Name HEP reviewed Resistance TB #3 anvik green Equipment Used mesh chair, hands front Reps/Minutes 2X10 Comments reviewed hip hinge/patient ed use of self tactile cues for hip hinge side stepping Side bilateral Resistance level 3 band above knees Equipment Used near rail not needed Reps/Minutes 10 feet X 3 Comments cued feet //, decrease KELSIE little bigger than normal step , trail LE clear calf stretch Standing Exercise Name Gastroc Side bilateral Equipment Used off bottom step (has home to use) Reps/Minutes 60 each LE Comments good feedback stretch Gait Training Gait Activity stairs Description ascend, descend Device Used L HR ascend Level of Assistance S/Mod I Distance/Duration 4 stairs x3 sets Treatment Focus glut drive ascend, controlled descend Comments Pt improved descend control with cues taller posture, TA draw in. Neuro Re-Education Treatment Balance Activities tandem stance Details added to HEP- shanice and verbage on current HO brought Equipment hand hover rail and chair back Reps/Duration 2 reps each Comments Rft fwd: 11 sec, 23 sec Lft fwd: 30sec - cued equal WB between BLEs retro Details Close SBA Equipment -hands above bars Reps/Duration 10 feet X 2 Comments cued feet //, toe heel, increase KELSIE hurdles Details fwd, lateral: close SBA Equipment 6 hurdles, receiprocal stepping Reps/Duration 2 laps- hands above bars Comments Verbal cues tall, over advance LE then next step - pleased not feel dizzy looking down ft clearance arnoldo. tandem stepping Details in PT Equipment close SBA- finger glide on wall Reps/Duration 10 feet X 6 Comments Verbal cues Self-Care/Home Management Treatment Education Patient Education Fall Risk,Home Exercise Program,Safety Other Education Time spent discussion use of SPC or Trek poles for safety lateral stability walking. She reports causes dizziness looking down for patterning needed but end tx did fine arnoldo stepping. Revisit use trek poles next tx. PT-OP-T Assessment and Plan Start: 02/29/24 13:47 Freq: Status: Active Protocol: Document 03/29/24 13:51 SP (Rec: 03/29/24 14:56 SP [id number]) Physical Therapy Assessment Goals Five Impairment gait Short Term Goal (STG) If appropriate, pt will be fit for LRAD for gait in order to demonstrate increased safety during ambulation, decreased fall risk, and activity tolerance STG Duration 6 weeks Intermediate Goal (LTG) Pt will be able to ambulate with or without LRAD at least community distances in order to demonstrate improved activity tolerance, safety during gait, and decreased fall risk LTG Duration 12 weeks Four Impairment confidence, activity tolerance Impairment ABC scale 58% Data Entry Manager Goal (LTG) Pt will report > 65% confidence in not falling during ADLs in order to demonstrate improved ability to participate in community events and activities at home LTG Duration 12 weeks Three Impairment strength Impairment 5x STS 13 seconds Short Term Goal (STG) Pt will be able to perform at least 10 sit to stands without UE assistance or compensations from standard chair in order to demonstrate improved BLE strength for gait , balance, and transfers STG Duration 6 weeks Intermediate Goal (LTG) Pt will be able to perform 5x STS without UE assistance and without compensations in at elast 12.6 seconds (age- related norm) in order to demonstrates improved BLE strength for gait, balance, and transfers LTG Duration 12 weeks Two Impairment dynamic balance Impairment DGI 10/24 Short Term Goal (STG) Pt will increase DGI score to at least 15/24 in order to demonstrate improved dynamic balance during gait and exercise STG Duration 6 weeks Data Entry Manager Goal (LTG) Pt will increase DGI score to at least 19/24 in order to demonstrate improved dynamic balance during gait and exercise LTG Duration 12 weeks One Impairment balance Impairment Marrufo score 38/56 Short Term Goal (STG) Pt will increase Marrufo balance score to at least 45/56 in order to demonstrate improved balance without AD and decreased fall risk STG Duration 6 weeks Intermediate Goal (LTG) Pt will increase Marrufo balance score to at least 48/56 in order to demonstrate improved balance without AD and decreased fall risk LTG Duration 12 weeks Assessment Summary Assessment Pt was able to asc/desc 4 stairs L HR only, decreased stand time descending stated bothersome to knees but improved control cues for taller /c TA draw in. She was able to receiprocal stepping fwd and lateral with increase stabilitiy not need use wall/ rail support with cues for slower pacing, tall wt shift into advanced LE stance stability before move next LE. She significant reduction in lateral wt shifts by end tx with increased hip abd strengthening and balance training this tx. Improved self corrections. Added tandem stationary stance for HEP, hand written on her personal paper brought today to progress balance home that is safe for her to do, will progress more in PT. Physical Therapy Plan Frequency and Duration Frequency of Treatment 2x/Week Duration of treatment (weeks) 12 Plan of Care Start Date 02/29/24 Plan of Care End Date 05/27/24 Therapeutic Interventions Therapeutic Interventions Balance Training,Canalithic Repositioning,Gait Training, Home Exercise Program,Joint Mobilizations,Manual Therapy, Neuromuscular Re-education, Orthotic/Prosthetic Management ,Patient/Caregiver Education, Self-Care/Home Management,Soft Tissue Mobilization,Taping, Therapeutic Activities, Therapeutic Exercises, Vestibular Rehabilitation Modalities Cold Pack/Ice Massage,Hot Packs Next Visit Focus/Plan Next Note Type Treatment Note Next Visit Plan monitor vitals, fall risk Next: start warm up biodex vs stepper depending on energy & Feedback to goals next tx. Ask if tolerated balance and strengthen trng last tx. Continue: hip strength (revisit lat step down, side step seated clam), calf stretch off step. Add: ankle strength, continue descend stairs (trial 2 step) ; continue balance training, Continue encourage trek poles spc training -[facility] on use safety. Plan of care: hip strength, endurance, balance, stairs
--- NOTE | 2024-03-31 16:37 | PT.OTN ---
Current Diagnoses Unsteadiness on feet (03/31/24) Other lack of coordination (03/31/24) Weakness (03/31/24) Unspecified fall, initial encounter (03/31/24) Physical Therapy Treatment Note PT-OP-A Visit Information Start: 02/29/24 13:47 Freq: Status: Active Protocol: Document 03/31/24 14:27 AB (Rec: 03/31/24 16:37 AB [id number]) Out-Patient Physical Therapy Visit Information Visit Information Visit Type Treatment Note Visit Start Time 14:33 Visit Stop Time 15:17 Visit Number 6 Number of [employer] Visits 4 Evaluation Information Evaluation Date 02/29/24 Precautions Precautions blood pressure, fall risk PT-OP-B Current Condition Start: 02/29/24 13:47 Freq: Status: Active Protocol: Document 02/29/24 13:47 NM (Rec: 02/29/24 16:14 NM [id number]) Current Condition History of Current Condition Current Complaints mobility, balance, weakness, endurance History of Current Condition Pt presents with abnormalities of balance, gait, strength, and decreased endurance. She reports that she uses furniture and underwood to assist with balance. Does not use an AD despite being told that she should. Hx of falls, most recent last when tripping over an object. Denies vertigo, dizziness. Report tingling in feet, numbness in plantar surfaces bilaterally. PMH of breast cancer, blood clots, headaches , memory loss, shortness of breath. Reports blood pressure usually low; does not get dizzy with positional changes. No falls otherwise, only near misses. Has several stairs with rails leading up to house and several inside (3 levels) . Lives with 2 adult sons. Retired Treatment Goals Patient/Caregiver Goals get stronger, improve endurance Current Functional Impairments (Reported) Functional Limitations- ADL's dressing Functional Limitations- Mobility/Gait 1/8 mi or 3-4 blocks ambulation sitting stairs Functional Limitations- Work/School retired PT-OP-C Subjective Start: 02/29/24 13:47 Freq: Status: Active Protocol: Document 03/31/24 14:27 AB (Rec: 03/31/24 16:37 AB [id number]) OP-PT Subjective Patient Comments Patient Comments Patient reports she has an ache acrosser her low back when she gets up, reports it is not getting worse, is constant. Patient reports she didn't feel worse post previous session. Patient reports her right leg was more painful and Thursday. BP start of session 116/73 HR 87 BPM seated left UE PT-OP-D Balance Start: 02/29/24 13:47 Freq: Status: Active Protocol: Document 02/29/24 13:47 NM (Rec: 02/29/24 16:16 NM [id number]) Balance Tests Marrufo Balance Test Marrufo Balance Test Score 38/56 PT-OP-E Functional Tests Start: 02/29/24 13:47 Freq: Status: Active Protocol: Document 02/29/24 13:47 NM (Rec: 02/29/24 16:14 NM [id number]) Functional Tests Five Times Sit to Stand Test Score 13 seconds Comments uses momentum, poor form, no eccentric control PT-OP-F Manual Assessment Start: 02/29/24 13:47 Freq: Status: Active Protocol: Document 02/29/24 13:47 NM (Rec: 02/29/24 16:14 NM [id number]) Manual Assessments Soft Tissue Assessment Soft Tissue Mobility Assessment Decreased hip flexor length Joint Mobility Assessment Joint Mobility Assessment Decreased hip and trunk ROM PT-OP-G Mobility & Gait Start: 02/29/24 13:47 Freq: Status: Active Protocol: Document 02/29/24 13:47 NM (Rec: 02/29/24 16:14 NM [id number]) OP Gait Assessment Gait Gait Assistance Required: Standby Assistance Distance (Feet) 250 Assistive Devices Assistive Device None,Gait Belt Gait Deviations General Gait Pattern Antalgic,Decreased Feet Clearance,Flexed Trunk,Wide Based Gait Factors Limiting Gait Function Factors Limiting Gait Function Decreased Activity Tolerance, Decreased Sensation,Decreased Strength,Limited Range of Motion,Poor Balance Stair Climbing Evaluation Evaluation Level of Assist On Stairs Contact Guard Assistance Devices Stair Climbing Assistive Devices Left Railing Technique/Endurance Stair Climbing Direction Ascend and Descend Stair Climbing Technique Step to Step Number of Steps Climbed 4 Stair Climbing Set # Repetitions (reps) 2 Comments Stair Climbing Comments Poor descent control PT-OP-H Neuro Start: 02/29/24 13:47 Freq: Status: Active Protocol: Document 02/29/24 13:47 NM (Rec: 02/29/24 16:14 NM [id number]) Sensation Evaluation Comments Summary Comments BLE grossly intact to light touch sensation until plantar surface of foot. Numbness along plantar surface bilaterally PT-OP-J Posture/Palpation/Skin Start: 02/29/24 13:47 Freq: Status: Active Protocol: Document 02/29/24 13:47 NM (Rec: 02/29/24 16:14 NM [id number]) Posture Evaluation Position Standing Head/C-Spine Posture Forward Head T-Spine Posture Increased Kyphosis L-Spine Posture Increased Lordosis Pelvis Posture Anteriorly Tilted Hip Posture (L) Externally Rotated,(R) Externally Rotated Knee Posture (L) Genu Valgus,(R) Genu Valgus Ankle/Foot Posture (L) Pronated,(R) Pronated Foot Arch (L) Low Arch,(R) Low Arch Skin Assessment Other Assessments Skin Assessment Comments Multiple old bruises, purple hematomas from previous injuries along BLE PT-OP-K Range of Motion Start: 02/29/24 13:47 Freq: Status: Active Protocol: Document 02/29/24 13:47 NM (Rec: 02/29/24 16:14 NM [id number]) Ankle and Foot Goniometric Range of Motion Ankle and Foot ROM Limitations Comments Observable limitation in B ankle dorsiflexion PT-OP-M Strength Start: 02/29/24 13:47 Freq: Status: Active Protocol: Document 02/29/24 13:47 NM (Rec: 02/29/24 16:14 NM [id number]) Trunk Strength Trunk Manual Muscle Testing Flexion 3 Fair Extension 3 Fair Rotation Left 3 Fair Rotation Right 3 Fair Lateral Flexion Left 3 Fair Lateral Flexion Right 3 Fair Hip Strength Hip Manual Muscle Testing Right Flexion (L2) 3+ Fair+ Extension (S1) 3+ Fair+ Abduction 3+ Fair+ Left Flexion (L2) 3+ Fair+ Extension (S1) 3+ Fair+ Abduction 3+ Fair+ Knee Strength Knee Manual Muscle Testing Right Flexion (S2) 4- Good- Extension (L3) 4- Good- Left Flexion (S2) 4- Good- Extension (L3) 4- Good- Ankle/Foot Strength Ankle and Foot Manual Muscle Testing Right Dorsiflexion (L4) 4- Good- Plantarflexion (S1) 3 Fair Comments Plantarflexion tested in sitting Left Dorsiflexion (L4) 4- Good- Plantarflexion (S1) 3 Fair Comments Plantarflexion tested in sitting PT-OP-Q Treatments Start: 02/29/24 13:47 Freq: Status: Active Protocol: Document 03/31/24 14:27 AB (Rec: 03/31/24 16:37 AB [id number]) Cardio Equipment Recumbent Elliptical (Biodex) Duration (Minutes) 3 Resistance 1 Seat Position 8 Other 3 min 45 sec BP 115/66 HR 81 left UE seated Therapeutic Exercises Sitting Exercises hip abduction Sitting Exercise Name 1. isometric, 2. clamshell Side bilateral Resistance level 4 band Reps/Minutes 60 seconds X1 , 2X 10 each exercise Comments patient reports no increased pain Standing Exercises bilateral heel raise Standing Exercise Name with UE use Side bilateral Reps/Minutes X20 Comments Verbal cues to lower heels to floor slowly Therapeutic Activity Therapeutic Activity sit to stand Reps/Minutes X2 Comments Pt ed mechanics of sit to stand and to flex knee just past 90 deg prior to standin g upright and if unable to artur to scoot to edge of chair post standing up. Patient ed to avoid allwoing persons to pull on her UE's to assist her out of chair Neuro Re-Education Treatment Balance Activities mat with obsticals under Details CGA to very minimal assist Reps/Duration 2 mats X 2 retro Details CCGA Equipment -hands above bars Reps/Duration 10 feet X 2 hurdles Details fwd, CGA hands above bars Equipment 6 hurdles, receiprocal stepping Reps/Duration 10 feet of 6 hurdles X 4 SLS Details CGA with visual scanning and head turns Surface floor Reps/Duration X4 X 2 each LE step up taps Equipment 6 inch step Reps/Duration X10 Comments CGA tandem stepping Details CGA hands above bars Reps/Duration 10 feet X 6 Comments Verbal cues PT-OP-T Assessment and Plan Start: 02/29/24 13:47 Freq: Status: Active Protocol: Document 03/31/24 14:27 AB (Rec: 03/31/24 16:37 AB [id number]) Physical Therapy Assessment Goals Five Impairment gait Short Term Goal (STG) If appropriate, pt will be fit for LRAD for gait in order to demonstrate increased safety during ambulation, decreased fall risk, and activity tolerance STG Duration 6 weeks Neonatal Doctor Goal (LTG) Pt will be able to ambulate with or without LRAD at least community distances in order to demonstrate improved activity tolerance, safety during gait, and decreased fall risk LTG Duration 12 weeks Four Impairment confidence, activity tolerance Impairment ABC scale 58% Care Home Goal (LTG) Pt will report > 65% confidence in not falling during ADLs in order to demonstrate improved ability to participate in community events and activities at home LTG Duration 12 weeks Three Impairment strength Impairment 5x STS 13 seconds Short Term Goal (STG) Pt will be able to perform at least 10 sit to stands without UE assistance or compensations from standard chair in order to demonstrate improved BLE strength for gait , balance, and transfers STG Duration 6 weeks Neonatal Doctor Goal (LTG) Pt will be able to perform 5x STS without UE assistance and without compensations in at elast 12.6 seconds (age- related norm) in order to demonstrates improved BLE strength for gait, balance, and transfers LTG Duration 12 weeks Two Impairment dynamic balance Impairment DGI 10/24 Short Term Goal (STG) Pt will increase DGI score to at least 15/24 in order to demonstrate improved dynamic balance during gait and exercise STG Duration 6 weeks Neonatal Doctor Goal (LTG) Pt will increase DGI score to at least 19/24 in order to demonstrate improved dynamic balance during gait and exercise LTG Duration 12 weeks One Impairment balance Impairment Marrufo score 38/56 Short Term Goal (STG) Pt will increase Marrufo balance score to at least 45/56 in order to demonstrate improved balance without AD and decreased fall risk STG Duration 6 weeks Neonatal Doctor Goal (LTG) Pt will increase Marrufo balance score to at least 48/56 in order to demonstrate improved balance without AD and decreased fall risk LTG Duration 12 weeks Assessment Summary Assessment Sveta reports knee pain is the same end of session, comments it was more during the Biodex recumb elliptical Physical Therapy Plan Frequency and Duration Frequency of Treatment 2x/Week Duration of treatment (weeks) 12 Plan of Care Start Date 02/29/24 Plan of Care End Date 05/27/24 Next Visit Focus/Plan Next Note Type Treatment Note Next Visit Plan monitor vitals, fall risk Next: start biodex vs stepper depending on energy, hip strength (revisit lat step down, side step), Next session : calf stretch off step. Add: ankle strength, continue descend stairs (trial 2 step) ; continue balance training, Continue encourage trek poles spc training -edu on use safety. Plan of care: hip strength, endurance, balance, stairs
--- NOTE | 2024-04-05 15:59 | PT.OTN ---
Current Diagnoses Unsteadiness on feet (04/05/24) Other lack of coordination (04/05/24) Weakness (04/05/24) Unspecified fall, initial encounter (04/05/24) Physical Therapy Treatment Note PT-OP-A Visit Information Start: 02/29/24 13:47 Freq: Status: Active Protocol: Document 04/05/24 13:45 NM (Rec: 04/05/24 14:32 NM [id number]) Out-Patient Physical Therapy Visit Information Visit Information Visit Type Treatment Note Visit Start Time 13:46 Visit Stop Time 14:30 Visit Number 7 Evaluation Information Evaluation Date 02/29/24 Precautions Precautions blood pressure, fall risk PT-OP-B Current Condition Start: 02/29/24 13:47 Freq: Status: Active Protocol: Document 02/29/24 13:47 NM (Rec: 02/29/24 16:14 NM [id number]) Current Condition History of Current Condition Current Complaints mobility, balance, weakness, endurance History of Current Condition Pt presents with abnormalities of balance, gait, strength, and decreased endurance. She reports that she uses furniture and underwood to assist with balance. Does not use an AD despite being told that she should. Hx of falls, most recent last when tripping over an object. Denies vertigo, dizziness. Report tingling in feet, numbness in plantar surfaces bilaterally. PMH of breast cancer, blood clots, headaches , memory loss, shortness of breath. Reports blood pressure usually low; does not get dizzy with positional changes. No falls otherwise, only near misses. Has several stairs with rails leading up to house and several inside (3 levels) . Lives with 2 adult sons. Retired Treatment Goals Patient/Caregiver Goals get stronger, improve endurance Current Functional Impairments (Reported) Functional Limitations- ADL's dressing Functional Limitations- Mobility/Gait 1/8 mi or 3-4 blocks ambulation sitting stairs Functional Limitations- Work/School retired PT-OP-C Subjective Start: 02/29/24 13:47 Freq: Status: Active Protocol: Document 04/05/24 13:45 NM (Rec: 04/05/24 14:32 NM [id number]) OP-PT Subjective Patient Comments Patient Comments Pt reports that her back and R sided PSIS/SIJ. She has had pain there since 10 months. She got adjusted yesterday by the chiropractor without success. She was doing her exercises day before yesterday and her 8 minute walk. She is planning to go to either PT-OP-D Balance Start: 02/29/24 13:47 Freq: Status: Active Protocol: Document 02/29/24 13:47 NM (Rec: 02/29/24 16:16 NM [id number]) Balance Tests Marrufo Balance Test Marrufo Balance Test Score 38/56 PT-OP-E Functional Tests Start: 02/29/24 13:47 Freq: Status: Active Protocol: Document 02/29/24 13:47 NM (Rec: 02/29/24 16:14 NM [id number]) Functional Tests Five Times Sit to Stand Test Score 13 seconds Comments uses momentum, poor form, no eccentric control PT-OP-F Manual Assessment Start: 02/29/24 13:47 Freq: Status: Active Protocol: Document 02/29/24 13:47 NM (Rec: 02/29/24 16:14 NM [id number]) Manual Assessments Soft Tissue Assessment Soft Tissue Mobility Assessment Decreased hip flexor length Joint Mobility Assessment Joint Mobility Assessment Decreased hip and trunk ROM PT-OP-G Mobility & Gait Start: 02/29/24 13:47 Freq: Status: Active Protocol: Document 02/29/24 13:47 NM (Rec: 02/29/24 16:14 NM [id number]) OP Gait Assessment Gait Gait Assistance Required: Standby Assistance Distance (Feet) 250 Assistive Devices Assistive Device None,Gait Belt Gait Deviations General Gait Pattern Antalgic,Decreased Feet Clearance,Flexed Trunk,Wide Based Gait Factors Limiting Gait Function Factors Limiting Gait Function Decreased Activity Tolerance, Decreased Sensation,Decreased Strength,Limited Range of Motion,Poor Balance Stair Climbing Evaluation Evaluation Level of Assist On Stairs Contact Guard Assistance Devices Stair Climbing Assistive Devices Left Railing Technique/Endurance Stair Climbing Direction Ascend and Descend Stair Climbing Technique Step to Step Number of Steps Climbed 4 Stair Climbing Set # Repetitions (reps) 2 Comments Stair Climbing Comments Poor descent control PT-OP-H Neuro Start: 02/29/24 13:47 Freq: Status: Active Protocol: Document 02/29/24 13:47 NM (Rec: 02/29/24 16:14 NM [id number]) Sensation Evaluation Comments Summary Comments BLE grossly intact to light touch sensation until plantar surface of foot. Numbness along plantar surface bilaterally PT-OP-J Posture/Palpation/Skin Start: 02/29/24 13:47 Freq: Status: Active Protocol: Document 02/29/24 13:47 NM (Rec: 02/29/24 16:14 NM [id number]) Posture Evaluation Position Standing Head/C-Spine Posture Forward Head T-Spine Posture Increased Kyphosis L-Spine Posture Increased Lordosis Pelvis Posture Anteriorly Tilted Hip Posture (L) Externally Rotated,(R) Externally Rotated Knee Posture (L) Genu Valgus,(R) Genu Valgus Ankle/Foot Posture (L) Pronated,(R) Pronated Foot Arch (L) Low Arch,(R) Low Arch Skin Assessment Other Assessments Skin Assessment Comments Multiple old bruises, purple hematomas from previous injuries along BLE PT-OP-K Range of Motion Start: 02/29/24 13:47 Freq: Status: Active Protocol: Document 02/29/24 13:47 NM (Rec: 02/29/24 16:14 NM [id number]) Ankle and Foot Goniometric Range of Motion Ankle and Foot ROM Limitations Comments Observable limitation in B ankle dorsiflexion PT-OP-M Strength Start: 02/29/24 13:47 Freq: Status: Active Protocol: Document 02/29/24 13:47 NM (Rec: 02/29/24 16:14 NM [id number]) Trunk Strength Trunk Manual Muscle Testing Flexion 3 Fair Extension 3 Fair Rotation Left 3 Fair Rotation Right 3 Fair Lateral Flexion Left 3 Fair Lateral Flexion Right 3 Fair Hip Strength Hip Manual Muscle Testing Right Flexion (L2) 3+ Fair+ Extension (S1) 3+ Fair+ Abduction 3+ Fair+ Left Flexion (L2) 3+ Fair+ Extension (S1) 3+ Fair+ Abduction 3+ Fair+ Knee Strength Knee Manual Muscle Testing Right Flexion (S2) 4- Good- Extension (L3) 4- Good- Left Flexion (S2) 4- Good- Extension (L3) 4- Good- Ankle/Foot Strength Ankle and Foot Manual Muscle Testing Right Dorsiflexion (L4) 4- Good- Plantarflexion (S1) 3 Fair Comments Plantarflexion tested in sitting Left Dorsiflexion (L4) 4- Good- Plantarflexion (S1) 3 Fair Comments Plantarflexion tested in sitting PT-OP-Q Treatments Start: 02/29/24 13:47 Freq: Status: Active Protocol: Document 04/05/24 13:45 NM (Rec: 04/05/24 14:32 NM [id number]) Therapeutic Exercises Supine Exercises repeated motions Supine Exercise Name 1. double knee to chest, 2. LTR Side bilateral Equipment Used orange uruguayan ball Reps/Minutes 2 min ea Comments fatiguing after LTR; reports improve in pain Sitting Exercises sit to stand Side bilateral Equipment Used fwd reaching Reps/Minutes 2x10 Comments no back pain when hip hinge Standing Exercises ankle dorsiflexion Standing Exercise Name added to HEP Side bilateral Resistance AROM Equipment Used back at wall, trek pole in L hand Reps/Minutes 2x10 Comments pain free, challenging bilateral heel raise Standing Exercise Name HEP review Side bilateral Equipment Used wall for balance Reps/Minutes 2x10 Comments pain free; cued neutral foot placement Gait Training Gait Activity trek poles Device Used 1 trek pole in L hand Level of Assistance close SBA Distance/Duration 200 ft, 150 ft, 100 ft Treatment Focus sequencing, stability Comments Improved stability w/ trek pole. Does not look down at pole with only 1, minimal cues for sequencing as pt progresses. Demos faster gait and less wobbling but gait is still wide Manual Therapy Treatment Consent Patient gave verbal consent for manual Yes treatment Manual Techniques MET Type R anterior innominate rotation : R hip ext, L hip flex Body Position Hooklying Reps/Duration 6x5 hold Comments Submaximal contraction using PT arm for resistance, push into my arm with your thighs equally. Rest break in between ea set. Reports extreme symptom reduction in RLE but not gone completely at end of session Edu on use at home as needed Neuro Re-Education Treatment Balance Activities ball toss Reps/Duration 10 ea direction (several minutes ea set) Comments Fwd toss Ball toss on floor (maximal strength) Lateral ball toss ea direction Staggered stance. Cued for weight shift. No LOB but increased sway PT-OP-T Assessment and Plan Start: 02/29/24 13:47 Freq: Status: Active Protocol: Document 04/05/24 13:45 NM (Rec: 04/05/24 14:32 NM [id number]) Physical Therapy Assessment Goals Five Impairment gait Short Term Goal (STG) If appropriate, pt will be fit for LRAD for gait in order to demonstrate increased safety during ambulation, decreased fall risk, and activity tolerance STG Duration 6 weeks Striker Out Goal (LTG) Pt will be able to ambulate with or without LRAD at least community distances in order to demonstrate improved activity tolerance, safety during gait, and decreased fall risk LTG Duration 12 weeks Four Impairment confidence, activity tolerance Impairment ABC scale 58% Striker Out Goal (LTG) Pt will report > 65% confidence in not falling during ADLs in order to demonstrate improved ability to participate in community events and activities at home LTG Duration 12 weeks Three Impairment strength Impairment 5x STS 13 seconds Short Term Goal (STG) Pt will be able to perform at least 10 sit to stands without UE assistance or compensations from standard chair in order to demonstrate improved BLE strength for gait , balance, and transfers 04/05/24: 10 STS w. hip hinge, no UE support STG Duration 6 weeks Mcfp Goal (LTG) Pt will be able to perform 5x STS without UE assistance and without compensations in at elast 12.6 seconds (age- related norm) in order to demonstrates improved BLE strength for gait, balance, and transfers LTG Duration 12 weeks Two Impairment dynamic balance Impairment DGI 10/24 Short Term Goal (STG) Pt will increase DGI score to at least 15/24 in order to demonstrate improved dynamic balance during gait and exercise STG Duration 6 weeks Mcfp Goal (LTG) Pt will increase DGI score to at least 19/24 in order to demonstrate improved dynamic balance during gait and exercise LTG Duration 12 weeks One Impairment balance Impairment Marrufo score 38/56 Short Term Goal (STG) Pt will increase Marrufo balance score to at least 45/56 in order to demonstrate improved balance without AD and decreased fall risk STG Duration 6 weeks Striker Out Goal (LTG) Pt will increase Marrufo balance score to at least 48/56 in order to demonstrate improved balance without AD and decreased fall risk LTG Duration 12 weeks Assessment Summary Assessment Pt tolerated session well despite increase in pain levels at beginning of session . Pt has R anterior innominate rotation, which is reduced with muscle energy technique. Pt reports significantly less pain at end of session and demonstrates less antalgic gait. PT educated pt on continuing to use at least 1 trek pole for balance as pt demonstrates improved stability with additional point of support. When trek pole in L hand, pt able to offset RLE pain and does not reach for underwood. Initiated repeated flexion to address low back pain and improve mobility. Pt demonstrates B ankle weakness in both dorsiflexion and plantarflexion, which is evident during heel and toe raises at wall. Requires cues for correct execution, maximal ROM, and for safety. Sveta becomes winded with even low level exertion and requires frequent breaks with exercise. Pt would benefit from skilled PT for gait, balance training and BLE strengthening in order to decrease fall risk and improve activity tolerance . Physical Therapy Plan Frequency and Duration Frequency of Treatment 2x/Week Duration of treatment (weeks) 12 Plan of Care Start Date 02/29/24 Plan of Care End Date 05/27/24 Therapeutic Interventions Therapeutic Interventions Balance Training,Canalithic Repositioning,Gait Training, Home Exercise Program,Joint Mobilizations,Manual Therapy, Neuromuscular Re-education, Orthotic/Prosthetic Management ,Patient/Caregiver Education, Self-Care/Home Management,Soft Tissue Mobilization,Taping, Therapeutic Activities, Therapeutic Exercises, Vestibular Rehabilitation Modalities Cold Pack/Ice Massage,Hot Packs Next Visit Focus/Plan Next Note Type Progress Note Next Visit Plan monitor vitals, fall risk Review MET, STM as needed; balance Next: start biodex vs stepper depending on energy, hip strength (revisit lat step down, side step), Next session : calf stretch off step. Add: ankle strength, continue descend stairs (trial 2 step) ; continue balance training, Continue encourage trek poles spc training -edu on use safety. Plan of care: hip strength, endurance, balance, stairs
--- NOTE | 2024-04-07 16:05 | PT.OTN ---
Current Diagnoses Unsteadiness on feet (04/07/24) Other lack of coordination (04/07/24) Weakness (04/07/24) Unspecified fall, initial encounter (04/07/24) Physical Therapy Treatment Note PT-OP-A Visit Information Start: 02/29/24 13:47 Freq: Status: Active Protocol: Document 04/07/24 13:48 NM (Rec: 04/07/24 14:31 NM [id number]) Out-Patient Physical Therapy Visit Information Visit Information Visit Type Progress Note Visit Start Time 13:48 Visit Stop Time 14:30 Visit Number 8 Evaluation Information Evaluation Date 02/29/24 Precautions Precautions blood pressure, fall risk PT-OP-B Current Condition Start: 02/29/24 13:47 Freq: Status: Active Protocol: Document 02/29/24 13:47 NM (Rec: 02/29/24 16:14 NM [id number]) Current Condition History of Current Condition Current Complaints mobility, balance, weakness, endurance History of Current Condition Pt presents with abnormalities of balance, gait, strength, and decreased endurance. She reports that she uses furniture and underwood to assist with balance. Does not use an AD despite being told that she should. Hx of falls, most recent last when tripping over an object. Denies vertigo, dizziness. Report tingling in feet, numbness in plantar surfaces bilaterally. PMH of breast cancer, blood clots, headaches , memory loss, shortness of breath. Reports blood pressure usually low; does not get dizzy with positional changes. No falls otherwise, only near misses. Has several stairs with rails leading up to house and several inside (3 levels) . Lives with 2 adult sons. Retired Treatment Goals Patient/Caregiver Goals get stronger, improve endurance Current Functional Impairments (Reported) Functional Limitations- ADL's dressing Functional Limitations- Mobility/Gait /8 mi or 3-4 blocks ambulation sitting stairs Functional Limitations- Work/School retired PT-OP-C Subjective Start: 02/29/24 13:47 Freq: Status: Active Protocol: Document 04/07/24 13:48 NM (Rec: 04/07/24 14:31 NM [id number]) OP-PT Subjective Patient Comments Patient Comments Pt reports that her pain feels better after getting a manipulation form chiro today. She got a xray on her back recently. Pt reports that she does not feel like she's made improvements since starting PT ; states that she still feels weak and is reaching for underwood . Not using AD despite reports that there is room in the house PT-OP-D Balance Start: 02/29/24 13:47 Freq: Status: Active Protocol: Document 02/29/24 13:47 NM (Rec: 02/29/24 16:16 NM [id number]) Balance Tests Marrufo Balance Test Marrufo Balance Test Score 38/56 PT-OP-E Functional Tests Start: 02/29/24 13:47 Freq: Status: Active Protocol: Document 02/29/24 13:47 NM (Rec: 02/29/24 16:14 NM [id number]) Functional Tests Five Times Sit to Stand Test Score 13 seconds Comments uses momentum, poor form, no eccentric control PT-OP-F Manual Assessment Start: 02/29/24 13:47 Freq: Status: Active Protocol: Document 02/29/24 13:47 NM (Rec: 02/29/24 16:14 NM [id number]) Manual Assessments Soft Tissue Assessment Soft Tissue Mobility Assessment Decreased hip flexor length Joint Mobility Assessment Joint Mobility Assessment Decreased hip and trunk ROM PT-OP-G Mobility & Gait Start: 02/29/24 13:47 Freq: Status: Active Protocol: Document 02/29/24 13:47 NM (Rec: 02/29/24 16:14 NM [id number]) OP Gait Assessment Gait Gait Assistance Required: Standby Assistance Distance (Feet) 250 Assistive Devices Assistive Device None,Gait Belt Gait Deviations General Gait Pattern Antalgic,Decreased Feet Clearance,Flexed Trunk,Wide Based Gait Factors Limiting Gait Function Factors Limiting Gait Function Decreased Activity Tolerance, Decreased Sensation,Decreased Strength,Limited Range of Motion,Poor Balance Stair Climbing Evaluation Evaluation Level of Assist On Stairs Contact Guard Assistance Devices Stair Climbing Assistive Devices Left Railing Technique/Endurance Stair Climbing Direction Ascend and Descend Stair Climbing Technique Step to Step Number of Steps Climbed 4 Stair Climbing Set # Repetitions (reps) 2 Comments Stair Climbing Comments Poor descent control PT-OP-H Neuro Start: 02/29/24 13:47 Freq: Status: Active Protocol: Document 02/29/24 13:47 NM (Rec: 02/29/24 16:14 NM [id number]) Sensation Evaluation Comments Summary Comments BLE grossly intact to light touch sensation until plantar surface of foot. Numbness along plantar surface bilaterally PT-OP-J Posture/Palpation/Skin Start: 02/29/24 13:47 Freq: Status: Active Protocol: Document 02/29/24 13:47 NM (Rec: 02/29/24 16:14 NM [id number]) Posture Evaluation Position Standing Head/C-Spine Posture Forward Head T-Spine Posture Increased Kyphosis L-Spine Posture Increased Lordosis Pelvis Posture Anteriorly Tilted Hip Posture (L) Externally Rotated,(R) Externally Rotated Knee Posture (L) Genu Valgus,(R) Genu Valgus Ankle/Foot Posture (L) Pronated,(R) Pronated Foot Arch (L) Low Arch,(R) Low Arch Skin Assessment Other Assessments Skin Assessment Comments Multiple old bruises, purple hematomas from previous injuries along BLE PT-OP-K Range of Motion Start: 02/29/24 13:47 Freq: Status: Active Protocol: Document 02/29/24 13:47 NM (Rec: 02/29/24 16:14 NM [id number]) Ankle and Foot Goniometric Range of Motion Ankle and Foot ROM Limitations Comments Observable limitation in B ankle dorsiflexion PT-OP-M Strength Start: 02/29/24 13:47 Freq: Status: Active Protocol: Document 02/29/24 13:47 NM (Rec: 02/29/24 16:14 NM [id number]) Trunk Strength Trunk Manual Muscle Testing Flexion 3 Fair Extension 3 Fair Rotation Left 3 Fair Rotation Right 3 Fair Lateral Flexion Left 3 Fair Lateral Flexion Right 3 Fair Hip Strength Hip Manual Muscle Testing Right Flexion (L2) 3+ Fair+ Extension (S1) 3+ Fair+ Abduction 3+ Fair+ Left Flexion (L2) 3+ Fair+ Extension (S1) 3+ Fair+ Abduction 3+ Fair+ Knee Strength Knee Manual Muscle Testing Right Flexion (S2) 4- Good- Extension (L3) 4- Good- Left Flexion (S2) 4- Good- Extension (L3) 4- Good- Ankle/Foot Strength Ankle and Foot Manual Muscle Testing Right Dorsiflexion (L4) 4- Good- Plantarflexion (S1) 3 Fair Comments Plantarflexion tested in sitting Left Dorsiflexion (L4) 4- Good- Plantarflexion (S1) 3 Fair Comments Plantarflexion tested in sitting PT-OP-Q Treatments Start: 02/29/24 13:47 Freq: Status: Active Protocol: Document 04/07/24 13:48 NM (Rec: 04/07/24 14:31 NM [id number]) Therapeutic Exercises Sitting Exercises LAQ Sitting Exercise Name HEP Side bilateral Resistance level 3 band at ankles Reps/Minutes 10x3 Comments good resistance from band; challenging Standing Exercises hip extension Side bilateral Resistance level 3 band at thighs > ankles Equipment Used hands on rail for balance Reps/Minutes 10 ea Comments challening; cued core stability bilateral heel raise Side bilateral Equipment Used hands on rail for balance Reps/Minutes 2x15 Comments cued neutral foot placement side stepping Side bilateral Resistance level 3 band above knees Reps/Minutes 3x15 ft Comments cued feet //, decrease KELSIE little bigger than normal step , trail LE clear Gait Training Gait Activity 4ww Distance/Duration 8 minutes, various distances around clinic Treatment Focus for stability Comments Improved speed and stability with 4ww, recommended use at home due to pt report of liking to use the shopping cart and ability to sit. Performed with education of placing next to wall prior to sitting stairs Description ascend, descend Device Used L HR ascend Level of Assistance S/Mod I Distance/Duration 4 stairs x3 sets Treatment Focus glut drive ascend, controlled descend Comments Several reps for balance testing. Primarily uses hands to assist with ascent. Cue for descend control with cues taller posture, TA draw in. Neuro Re-Education Treatment Balance Activities DGI Reps/Duration 08/14 Comments challenging for pt, requires increased time due to rest breaks between sets Marrufo Reps/Duration 46/56 Comments Requires increased time Challenged with tandem, SLS, step taps, reaching, picking up object PT-OP-T Assessment and Plan Start: 02/29/24 13:47 Freq: Status: Active Protocol: Document 04/07/24 13:48 NM (Rec: 04/07/24 14:31 NM [id number]) Physical Therapy Assessment Goals Five Impairment gait Short Term Goal (STG) If appropriate, pt will be fit for LRAD for gait in order to demonstrate increased safety during ambulation, decreased fall risk, and activity tolerance 04/07/24: pt has been educated and fitted for trek poles; trialed and educated also on use of 4ww for safety. however , pt declines to use AD STG Duration 6 weeks MET Custodial Goal (LTG) Pt will be able to ambulate with or without LRAD at least community distances in order to demonstrate improved activity tolerance, safety during gait, and decreased fall risk LTG Duration 12 weeks Four Impairment confidence, activity tolerance Impairment ABC scale 58% Custodial Goal (LTG) Pt will report > 65% confidence in not falling during ADLs in order to demonstrate improved ability to participate in community events and activities at home LTG Duration 12 weeks Three Impairment strength Impairment 5x STS 13 seconds Short Term Goal (STG) Pt will be able to perform at least 10 sit to stands without UE assistance or compensations from standard chair in order to demonstrate improved BLE strength for gait , balance, and transfers 04/05/24: 10 STS w. hip hinge, no UE support STG Duration 6 weeks MET Custodial Goal (LTG) Pt will be able to perform 5x STS without UE assistance and without compensations in at elast 12.6 seconds (age- related norm) in order to demonstrates improved BLE strength for gait, balance, and transfers LTG Duration 12 weeks Two Impairment dynamic balance Impairment DGI 07/14 Short Term Goal (STG) Pt will increase DGI score to at least 15/24 in order to demonstrate improved dynamic balance during gait and exercise 04/07/24: 11 STG Duration 6 weeks NOT MET Custodial Goal (LTG) Pt will increase DGI score to at least 19/24 in order to demonstrate improved dynamic balance during gait and exercise LTG Duration 12 weeks One Impairment balance Impairment Marrufo score 38/56 Short Term Goal (STG) Pt will increase Marrufo balance score to at least 45/56 in order to demonstrate improved balance without AD and decreased fall risk 04/07/24: 46/56 STG Duration 6 weeks MET Improvement Spec Goal (LTG) Pt will increase Marrufo balance score to at least 48/56 in order to demonstrate improved balance without AD and decreased fall risk LTG Duration 12 weeks Progress Towards Goals Progress Towards Goals Progressing Toward Goals,Slow Progress due to Activity Tolerance,Slow Progress due to Attendance Issues Assessment Summary Assessment Pt tolerated session well, pain better managed today. She is slowly progressing toward goals. However, limited by poor endurance and weakness. Continued with strengthening glutes/quad with emphasis on core bracing and form. Pt challenged by LAQ, side steps, and standing hip extension. Continues to have difficulty with stairs;performs largely quad dominant and UE-dependent ascent and descent, despite cueing. PT also educated pt in last session and current session on recommended AD use due to balance scores and falls risk, in addition to assist with pain management. Trialed both trek poles (one and two), in addition to 4WW for comfort. Pt demonstrates significant improvements in both speed and stability with an AD (4ww > trek poles); however, pt states I will likely never use this when educated on AD vince due to balance scores and antalgic gait. Physical Therapy Plan Frequency and Duration Frequency of Treatment 2x/Week Duration of treatment (weeks) 12 Plan of Care Start Date 02/29/24 Plan of Care End Date 05/27/24 Therapeutic Interventions Therapeutic Interventions Balance Training,Canalithic Repositioning,Gait Training, Home Exercise Program,Joint Mobilizations,Manual Therapy, Neuromuscular Re-education, Orthotic/Prosthetic Management ,Patient/Caregiver Education, Self-Care/Home Management,Soft Tissue Mobilization,Taping, Therapeutic Activities, Therapeutic Exercises, Vestibular Rehabilitation Modalities Cold Pack/Ice Massage,Hot Packs Next Visit Focus/Plan Next Note Type Treatment Note Next Visit Plan monitor vitals, fall risk review LAQ, side steps, step up, leg press Review MET, STM as needed; balance Next: start biodex vs stepper depending on energy, hip strength (revisit lat step down, side step), Next session : calf stretch off step. Add: ankle strength, continue descend stairs (trial 2 step) ; continue balance training, Continue encourage trek poles sp[facility] training -edu on use safety. Plan of care: hip strength, endurance, balance, stairs
--- NOTE | 2024-04-11 13:56 | PT.OTN ---
Current Diagnoses Unsteadiness on feet (04/11/24) Other lack of coordination (04/11/24) Weakness (04/11/24) Unspecified fall, initial encounter (04/11/24) Physical Therapy Treatment Note PT-OP-A Visit Information Start: 02/29/24 13:47 Freq: Status: Active Protocol: Document 04/11/24 13:02 NM (Rec: 04/11/24 13:56 NM [id number]) Out-Patient Physical Therapy Visit Information Visit Information Visit Type Treatment Note Visit Start Time 13:03 Visit Stop Time 13:43 Visit Number 9 PT-OP-B Current Condition Start: 02/29/24 13:47 Freq: Status: Active Protocol: Document 02/29/24 13:47 NM (Rec: 02/29/24 16:14 NM [id number]) Current Condition History of Current Condition Current Complaints mobility, balance, weakness, endurance History of Current Condition Pt presents with abnormalities of balance, gait, strength, and decreased endurance. She reports that she uses furniture and underwood to assist with balance. Does not use an AD despite being told that she should. Hx of falls, most recent last when tripping over an object. Denies vertigo, dizziness. Report tingling in feet, numbness in plantar surfaces bilaterally. PMH of breast cancer, blood clots, headaches , memory loss, shortness of breath. Reports blood pressure usually low; does not get dizzy with positional changes. No falls otherwise, only near misses. Has several stairs with rails leading up to house and several inside (3 levels) . Lives with 2 adult sons. Retired Treatment Goals Patient/Caregiver Goals get stronger, improve endurance Current Functional Impairments (Reported) Functional Limitations- ADL's dressing Functional Limitations- Mobility/Gait 09/28 mi or 3-4 blocks ambulation sitting stairs Functional Limitations- Work/School retired PT-OP-C Subjective Start: 02/29/24 13:47 Freq: Status: Active Protocol: Document 04/11/24 13:02 NM (Rec: 04/11/24 13:56 NM [id number]) OP-PT Subjective Patient Comments Patient Comments Pt reports that she had an adjustment morning and today. States that she continues to have back pain on R side. Went to 3 day convention over the weekend- lots of sitting, walking, standing; causes increased back pain. Reports no soreness or pain residuals after last session. PT-OP-D Balance Start: 02/29/24 13:47 Freq: Status: Active Protocol: Document 02/29/24 13:47 NM (Rec: 02/29/24 16:16 NM [id number]) Balance Tests Marrufo Balance Test Marrufo Balance Test Score 38/56 PT-OP-E Functional Tests Start: 02/29/24 13:47 Freq: Status: Active Protocol: Document 02/29/24 13:47 NM (Rec: 02/29/24 16:14 NM [id number]) Functional Tests Five Times Sit to Stand Test Score 13 seconds Comments uses momentum, poor form, no eccentric control PT-OP-F Manual Assessment Start: 02/29/24 13:47 Freq: Status: Active Protocol: Document 02/29/24 13:47 NM (Rec: 02/29/24 16:14 NM [id number]) Manual Assessments Soft Tissue Assessment Soft Tissue Mobility Assessment Decreased hip flexor length Joint Mobility Assessment Joint Mobility Assessment Decreased hip and trunk ROM PT-OP-G Mobility & Gait Start: 02/29/24 13:47 Freq: Status: Active Protocol: Document 02/29/24 13:47 NM (Rec: 02/29/24 16:14 NM [id number]) OP Gait Assessment Gait Gait Assistance Required: Standby Assistance Distance (Feet) 250 Assistive Devices Assistive Device None,Gait Belt Gait Deviations General Gait Pattern Antalgic,Decreased Feet Clearance,Flexed Trunk,Wide Based Gait Factors Limiting Gait Function Factors Limiting Gait Function Decreased Activity Tolerance, Decreased Sensation,Decreased Strength,Limited Range of Motion,Poor Balance Stair Climbing Evaluation Evaluation Level of Assist On Stairs Contact Guard Assistance Devices Stair Climbing Assistive Devices Left Railing Technique/Endurance Stair Climbing Direction Ascend and Descend Stair Climbing Technique Step to Step Number of Steps Climbed 4 Stair Climbing Set # Repetitions (reps) 2 Comments Stair Climbing Comments Poor descent control PT-OP-H Neuro Start: 02/29/24 13:47 Freq: Status: Active Protocol: Document 02/29/24 13:47 NM (Rec: 02/29/24 16:14 NM [id number]) Sensation Evaluation Comments Summary Comments BLE grossly intact to light touch sensation until plantar surface of foot. Numbness along plantar surface bilaterally PT-OP-J Posture/Palpation/Skin Start: 02/29/24 13:47 Freq: Status: Active Protocol: Document 02/29/24 13:47 NM (Rec: 02/29/24 16:14 NM [id number]) Posture Evaluation Position Standing Head/C-Spine Posture Forward Head T-Spine Posture Increased Kyphosis L-Spine Posture Increased Lordosis Pelvis Posture Anteriorly Tilted Hip Posture (L) Externally Rotated,(R) Externally Rotated Knee Posture (L) Genu Valgus,(R) Genu Valgus Ankle/Foot Posture (L) Pronated,(R) Pronated Foot Arch (L) Low Arch,(R) Low Arch Skin Assessment Other Assessments Skin Assessment Comments Multiple old bruises, purple hematomas from previous injuries along BLE PT-OP-K Range of Motion Start: 02/29/24 13:47 Freq: Status: Active Protocol: Document 02/29/24 13:47 NM (Rec: 02/29/24 16:14 NM [id number]) Ankle and Foot Goniometric Range of Motion Ankle and Foot ROM Limitations Comments Observable limitation in B ankle dorsiflexion PT-OP-M Strength Start: 02/29/24 13:47 Freq: Status: Active Protocol: Document 02/29/24 13:47 NM (Rec: 02/29/24 16:14 NM [id number]) Trunk Strength Trunk Manual Muscle Testing Flexion 3 Fair Extension 3 Fair Rotation Left 3 Fair Rotation Right 3 Fair Lateral Flexion Left 3 Fair Lateral Flexion Right 3 Fair Hip Strength Hip Manual Muscle Testing Right Flexion (L2) 3+ Fair+ Extension (S1) 3+ Fair+ Abduction 3+ Fair+ Left Flexion (L2) 3+ Fair+ Extension (S1) 3+ Fair+ Abduction 3+ Fair+ Knee Strength Knee Manual Muscle Testing Right Flexion (S2) 4- Good- Extension (L3) 4- Good- Left Flexion (S2) 4- Good- Extension (L3) 4- Good- Ankle/Foot Strength Ankle and Foot Manual Muscle Testing Right Dorsiflexion (L4) 4- Good- Plantarflexion (S1) 3 Fair Comments Plantarflexion tested in sitting Left Dorsiflexion (L4) 4- Good- Plantarflexion (S1) 3 Fair Comments Plantarflexion tested in sitting PT-OP-Q Treatments Start: 02/29/24 13:47 Freq: Status: Active Protocol: Document 04/11/24 13:02 NM (Rec: 04/11/24 13:56 NM [id number]) Gym Equipment Shuttle Recovery B squat Details cued TKE w/o locking knees. good alignment Resistance 50# > 75# (3 [employer]) Reps/Time 10, 2x10 #75# Therapeutic Exercises Standing Exercises pallof Standing Exercise Name pallof press Side bilateral Resistance level 1 band Reps/Minutes 10 ea Comments fatiguing low row Standing Exercise Name CGA for balance Side bilateral Resistance level 4 band Reps/Minutes 2x10 Comments cued for form lat pull down Standing Exercise Name CGA for balance Side bilateral Resistance level 4 band Equipment Used wide arm [employer] combat skills Reps/Minutes 2x10 Neuro Re-Education Treatment Balance Activities bungee stepping Details CGA to stabilize Reps/Duration 5x5 ft Comments 1. fwd 2. bwd 3. lateral, ea direction Requires increased time. cued for upright posture, no shuffling, and larger steps. demos hip strategy step up taps Details CGA to stabilize Comments 1. lateral step taps, 6 step x10 ea 2. step (1st step) step (2nd step) taps, 2x5 Cued initially for weight shift onto stance LE. RLE is more challenged in stance than LLE PT-OP-T Assessment and Plan Start: 02/29/24 13:47 Freq: Status: Active Protocol: Document 04/11/24 13:02 NM (Rec: 04/11/24 13:56 NM [id number]) Physical Therapy Assessment Goals Five Impairment gait Short Term Goal (STG) If appropriate, pt will be fit for LRAD for gait in order to demonstrate increased safety during ambulation, decreased fall risk, and activity tolerance 04/07/24: pt has been educated and fitted for trek poles; trialed and educated also on use of 4ww for safety. however , pt declines to use AD STG Duration 6 weeks MET Cloth Shrinking Supervisor Goal (LTG) Pt will be able to ambulate with or without LRAD at least community distances in order to demonstrate improved activity tolerance, safety during gait, and decreased fall risk LTG Duration 12 weeks Four Impairment confidence, activity tolerance Impairment ABC scale 58% Cloth Shrinking Supervisor Goal (LTG) Pt will report > 65% confidence in not falling during ADLs in order to demonstrate improved ability to participate in community events and activities at home LTG Duration 12 weeks Three Impairment strength Impairment 5x STS 13 seconds Short Term Goal (STG) Pt will be able to perform at least 10 sit to stands without UE assistance or compensations from standard chair in order to demonstrate improved BLE strength for gait , balance, and transfers 04/05/24: 10 STS w. hip hinge, no UE support STG Duration 6 weeks MET Care Home Goal (LTG) Pt will be able to perform 5x STS without UE assistance and without compensations in at elast 12.6 seconds (age- related norm) in order to demonstrates improved BLE strength for gait, balance, and transfers LTG Duration 12 weeks Two Impairment dynamic balance Impairment DGI 07/14 Short Term Goal (STG) Pt will increase DGI score to at least 15/24 in order to demonstrate improved dynamic balance during gait and exercise 04/07/24: 08/14 STG Duration 6 weeks NOT MET Cloth Shrinking Supervisor Goal (LTG) Pt will increase DGI score to at least 19/24 in order to demonstrate improved dynamic balance during gait and exercise LTG Duration 12 weeks One Impairment balance Impairment Marrufo score 38/56 Short Term Goal (STG) Pt will increase Marrufo balance score to at least 45/56 in order to demonstrate improved balance without AD and decreased fall risk 04/07/24: 46/56 STG Duration 6 weeks MET Care Home Goal (LTG) Pt will increase Marrufo balance score to at least 48/56 in order to demonstrate improved balance without AD and decreased fall risk LTG Duration 12 weeks Assessment Summary Assessment Pt tolerated session well despite increased pain at beginning of session. Reports R knee pain in staggered stance position with low row and lat pulldown; however, resolved with lateral stepping using bungee. Initiated bungee stepping and multi-step taps at stair to address anticipatory balance and facilitate better weight shift onto stance limb during gait and balance. Trialed leg press for B squat to improve glute and quad strength. Pt challenged by 75#, demos good alignment and is pain free. Educated on better shoewear for safety as pt has tendency to wear flip flops or open/ closed toed shoes; also continued to recommend use of AD (e.g. trek poles) for safety during ambulation. Pt would benefit from skilled PT for gait, balance, and progressive strength training in order to decrease fall risk and improve activity tolerance. Physical Therapy Plan Frequency and Duration Frequency of Treatment 2x/Week Duration of treatment (weeks) 12 Plan of Care Start Date 02/29/24 Plan of Care End Date 05/27/24 Therapeutic Interventions Therapeutic Interventions Balance Training,Canalithic Repositioning,Gait Training, Home Exercise Program,Joint Mobilizations,Manual Therapy, Neuromuscular Re-education, Orthotic/Prosthetic Management ,Patient/Caregiver Education, Self-Care/Home Management,Soft Tissue Mobilization,Taping, Therapeutic Activities, Therapeutic Exercises, Vestibular Rehabilitation Modalities Cold Pack/Ice Massage,Hot Packs Next Visit Focus/Plan Next Note Type Treatment Note Next Visit Plan monitor vitals, fall risk Ask tolerance to leg press. trial 4 step up. review LAQ, side steps, and postural strengthening in addition to balance training Review MET, STM as needed; balance Next: start biodex vs stepper depending on energy, hip strength (revisit lat step down, side step), Next session : calf stretch off step. Add: ankle strength, continue descend stairs (trial 2 step) ; continue balance training, Continue encourage trek poles [employer] training -edu on use safety. Plan of care: hip strength, endurance, balance, stairs
--- NOTE | 2024-04-14 14:32 | PT.OTN ---
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 She reports that she uses furniture and underwood to assist with balance. Does not use an AD despite being told that she should. Hx of falls, most recent last when tripping over an object. Denies vertigo, dizziness. Report tingling in feet, numbness in plantar surfaces bilaterally. PMH of breast cancer, blood clots, headaches , memory loss, shortness of breath. Reports blood pressure usually low; does not get dizzy with positional changes. No falls otherwise, only near misses. Has several stairs with rails leading up to house and several inside (3 levels) . Lives with 2 adult sons. Retired Treatment Goals Patient/Caregiver Goals get stronger, improve endurance Current Functional Impairments (Reported) Functional Limitations- ADL's dressing Functional Limitations- Mobility/Gait 1/8 mi or 3-4 blocks ambulation sitting stairs Functional Limitations- Work/School retired PT-OP-C Subjective Start: 02/29/24 13:47 Freq: Status: Active Protocol: Document 04/14/24 13:52 SP (Rec: 04/14/24 14:35 SP [id number]) OP-PT Subjective Patient Comments Patient Comments Pt reported her pain didn't get any worse after last tx. Her R knee is still bothering her. Stated was able to get HEP done since last tx, but not tandem stance. PT-OP-D Balance Start: 02/29/24 13:47 Freq: Status: Active Protocol: Document 02/29/24 13:47 NM (Rec: 02/29/24 16:16 NM [id number]) Balance Tests Marrufo Balance Test Marrufo Balance Test Score 38/56 PT-OP-E Functional Tests Start: 02/29/24 13:47 Freq: Status: Active Protocol: Document 02/29/24 13:47 NM (Rec: 02/29/24 16:14 NM [id number]) Functional Tests Five Times Sit to Stand Test Score 13 seconds Comments uses momentum, poor form, no eccentric control PT-OP-F Manual Assessment Start: 02/29/24 13:47 Freq: Status: Active Protocol: Document 02/29/24 13:47 NM (Rec: 02/29/24 16:14 NM [id number]) Manual Assessments Soft Tissue Assessment Soft Tissue Mobility Assessment Decreased hip flexor length Joint Mobility Assessment Joint Mobility Assessment Decreased hip and trunk ROM PT-OP-G Mobility & Gait Start: 02/29/24 13:47 Freq: Status: Active Protocol: Document 02/29/24 13:47 NM (Rec: 02/29/24 16:14 NM [id number]) OP Gait Assessment Gait Gait Assistance Required: Standby Assistance Distance (Feet) 250 Assistive Devices Assistive Device None,Gait Belt Gait Deviations General Gait Pattern Antalgic,Decreased Feet Clearance,Flexed Trunk,Wide Based Gait Factors Limiting Gait Function Factors Limiting Gait Function Decreased Activity Tolerance, Decreased Sensation,Decreased Strength,Limited Range of Motion,Poor Balance Stair Climbing Evaluation Evaluation Level of Assist On Stairs Contact Guard Assistance Devices Stair Climbing Assistive Devices Left Railing Technique/Endurance Stair Climbing Direction Ascend and Descend Stair Climbing Technique Step to Step Number of Steps Climbed 4 Stair Climbing Set # Repetitions (reps) 2 Comments Stair Climbing Comments Poor descent control PT-OP-H Neuro Start: 02/29/24 13:47 Freq: Status: Active Protocol: Document 02/29/24 13:47 NM (Rec: 02/29/24 16:14 NM [id number]) Sensation Evaluation Comments Summary Comments BLE grossly intact to light touch sensation until plantar surface of foot. Numbness along plantar surface bilaterally PT-OP-J Posture/Palpation/Skin Start: 02/29/24 13:47 Freq: Status: Active Protocol: Document 02/29/24 13:47 NM (Rec: 02/29/24 16:14 NM [id number]) Posture Evaluation Position Standing Head/C-Spine Posture Forward Head T-Spine Posture Increased Kyphosis L-Spine Posture Increased Lordosis Pelvis Posture Anteriorly Tilted Hip Posture (L) Externally Rotated,(R) Externally Rotated Knee Posture (L) Genu Valgus,(R) Genu Valgus Ankle/Foot Posture (L) Pronated,(R) Pronated Foot Arch (L) Low Arch,(R) Low Arch Skin Assessment Other Assessments Skin Assessment Comments Multiple old bruises, purple hematomas from previous injuries along BLE PT-OP-K Range of Motion Start: 02/29/24 13:47 Freq: Status: Active Protocol: Document 02/29/24 13:47 NM (Rec: 02/29/24 16:14 NM [id number]) Ankle and Foot Goniometric Range of Motion Ankle and Foot ROM Limitations Comments Observable limitation in B ankle dorsiflexion PT-OP-M Strength Start: 02/29/24 13:47 Freq: Status: Active Protocol: Document 02/29/24 13:47 NM (Rec: 02/29/24 16:14 NM [id number]) Trunk Strength Trunk Manual Muscle Testing Flexion 3 Fair Extension 3 Fair Rotation Left 3 Fair Rotation Right 3 Fair Lateral Flexion Left 3 Fair Lateral Flexion Right 3 Fair Hip Strength Hip Manual Muscle Testing Right Flexion (L2) 3+ Fair+ Extension (S1) 3+ Fair+ Abduction 3+ Fair+ Left Flexion (L2) 3+ Fair+ Extension (S1) 3+ Fair+ Abduction 3+ Fair+ Knee Strength Knee Manual Muscle Testing Right Flexion (S2) 4- Good- Extension (L3) 4- Good- Left Flexion (S2) 4- Good- Extension (L3) 4- Good- Ankle/Foot Strength Ankle and Foot Manual Muscle Testing Right Dorsiflexion (L4) 4- Good- Plantarflexion (S1) 3 Fair Comments Plantarflexion tested in sitting Left Dorsiflexion (L4) 4- Good- Plantarflexion (S1) 3 Fair Comments Plantarflexion tested in sitting PT-OP-Q Treatments Start: 02/29/24 13:47 Freq: Status: Active Protocol: Document 04/14/24 13:52 SP (Rec: 04/14/24 14:35 SP [id number]) Gym Equipment Shuttle Recovery Unilateral Squats Resistance 50# navy bands Reps/Time x10 each B squat Details cued TKE w/o locking knees improved alignment Resistance 75# (3 navy) Reps/Time 2x10 #75# Therapeutic Exercises Sitting Exercises LAQ Sitting Exercise Name HEP reviewed (forgot do home) Side bilateral Resistance level 3 band at ankle/under opp foot Reps/Minutes x10, 5x3 Comments good resistance from band; challenging Standing Exercises pallof Standing Exercise Name pallof press Side bilateral Resistance level 2 bands (double orange) Reps/Minutes 10 ea Comments fatiguing, cued side step challenge resistance then stationary press out low row Standing Exercise Name CGA for balance Side bilateral Resistance level 4 blue band Reps/Minutes 2x10 Comments cued for set up/soft knee lat pull down Standing Exercise Name SBA Side bilateral Resistance level 4 blue band Equipment Used wide arm composition tile layer Reps/Minutes 2x10 Comments cued tall, soft knees Gait Training Gait Activity gait no AD Comments initally arrival extreme lateral lean, contacting wall support. Leaving cued and demonstrated taller with TA draw in soft stepping. almost midline up to 20 ft then slight lateral wt shift but states better on back end tx with activity. trek poles Device Used 1 trek pole in B hands Level of Assistance close SBA Distance/Duration 20 ft Treatment Focus sequencing, midline stability Comments Pt challenge patterning, retro lean instability- refused continued use. Doesnt' feel comfortable and won;t use. Neuro Re-Education Treatment Balance Activities bungee stepping Details CGA for safety on bungee strap Reps/Duration 5x5s teps ft Comments 1. fwd 2. bwd 3. lateral, ea direction Requires increased time. cued for upright posture, TA draw in during RLE stance time, no shuffling, and larger steps. demos hip strategy Self-Care/Home Management Treatment Education Patient Education Fall Risk,Pain Management, Posture,Safety Other Education Continued education on safety support use AD to off load R knee and LB for pain reduction /tolerance longer distances and reduction in compensations PT-OP-T Assessment and Plan Start: 02/29/24 13:47 Freq: Status: Active Protocol: Document 04/14/24 13:52 SP (Rec: 04/14/24 14:35 SP [id number]) Physical Therapy Assessment Goals Five Impairment gait Short Term Goal (STG) If appropriate, pt will be fit for LRAD for gait in order to demonstrate increased safety during ambulation, decreased fall risk, and activity tolerance 04/07/24: pt has been educated and fitted for trek poles; trialed and educated also on use of 4ww for safety. however , pt declines to use AD STG Duration 6 weeks MET Care Home Goal (LTG) Pt will be able to ambulate with or without LRAD at least community distances in order to demonstrate improved activity tolerance, safety during gait, and decreased fall risk LTG Duration 12 weeks Four Impairment confidence, activity tolerance Impairment ABC scale 58% Chief Informatics Officer Goal (LTG) Pt will report > 65% confidence in not falling during ADLs in order to demonstrate improved ability to participate in community events and activities at home LTG Duration 12 weeks Three Impairment strength Impairment 5x STS 13 seconds Short Term Goal (STG) Pt will be able to perform at least 10 sit to stands without UE assistance or compensations from standard chair in order to demonstrate improved BLE strength for gait , balance, and transfers 04/05/24: 10 STS w. hip hinge, no UE support STG Duration 6 weeks MET Care Home Goal (LTG) Pt will be able to perform 5x STS without UE assistance and without compensations in at elast 12.6 seconds (age- related norm) in order to demonstrates improved BLE strength for gait, balance, and transfers LTG Duration 12 weeks Two Impairment dynamic balance Impairment DGI 07/14 Short Term Goal (STG) Pt will increase DGI score to at least 15/24 in order to demonstrate improved dynamic balance during gait and exercise 04/07/24: 08/14 STG Duration 6 weeks NOT MET Care Home Goal (LTG) Pt will increase DGI score to at least 19/24 in order to demonstrate improved dynamic balance during gait and exercise LTG Duration 12 weeks One Impairment balance Impairment Marrufo score 38/56 Short Term Goal (STG) Pt will increase Marrufo balance score to at least 45/56 in order to demonstrate improved balance without AD and decreased fall risk 04/07/24: 46/56 STG Duration 6 weeks MET Chief Informatics Officer Goal (LTG) Pt will increase Marrufo balance score to at least 48/56 in order to demonstrate improved balance without AD and decreased fall risk LTG Duration 12 weeks Assessment Summary Assessment Pt tolerated session well, good tolerance of leg press. Demonstrated improved midline trunk alignment and stability with ther ex, required cues for elongated posture, abdominal facilitation with soft LE advancement but continues to have decreased stance time on RLE with knee pain reports. Continued education on safety support use AD to off load R knee and LB for pain reduction/ tolerance longer distances and reduction in compensations especially during inital standing and locomotion noted walking into gym use due to use of wall support required, pt declines recommendation need of added support. Physical Therapy Plan Frequency and Duration Frequency of Treatment 2x/Week Duration of treatment (weeks) 12 Plan of Care Start Date 02/29/24 Plan of Care End Date 05/27/24 Therapeutic Interventions Therapeutic Interventions Balance Training,Canalithic Repositioning,Gait Training, Home Exercise Program,Joint Mobilizations,Manual Therapy, Neuromuscular Re-education, Orthotic/Prosthetic Management ,Patient/Caregiver Education, Self-Care/Home Management,Soft Tissue Mobilization,Taping, Therapeutic Activities, Therapeutic Exercises, Vestibular Rehabilitation Modalities Cold Pack/Ice Massage,Hot Packs Next Visit Focus/Plan Next Note Type Treatment Note Next Visit Plan monitor vitals, fall risk Start biodex vs stepper depending on energy. Continue leg press for LE strengthening , next trial 4 step up. Continue resisted LAQ (ask doing home), side steps, and postural strengthening in addition to balance training Review MET, STM as needed; balance Next: , hip strength (revisit lat step down, side step), Next session: calf stretch off step. Add: ankle strength, continue descend stairs (trial 2 step); continue balance training, Continue encourage trek poles sp[employer] training -edu on use safety. Plan of care: hip strength, endurance, balance, stairs
--- NOTE | 2024-04-18 15:45 | PT.OTN ---
Current Diagnoses Unsteadiness on feet (04/18/24) Other lack of coordination (04/18/24) Weakness (04/18/24) Unspecified fall, initial encounter (04/18/24) Physical Therapy Treatment Note PT-OP-A Visit Information Start: 02/29/24 13:47 Freq: Status: Active Protocol: Document 04/18/24 13:48 NM (Rec: 04/18/24 14:36 NM [id number]) Out-Patient Physical Therapy Visit Information Visit Information Visit Type Treatment Note Visit Note 11/28 post PN Visit Start Time 13:49 Visit Stop Time 14:33 Visit Number 11 Evaluation Information Evaluation Date 02/29/24 Precautions Precautions blood pressure, fall risk PT-OP-B Current Condition Start: 02/29/24 13:47 Freq: Status: Active Protocol: Document 02/29/24 13:47 NM (Rec: 02/29/24 16:14 NM [id number]) Current Condition History of Current Condition Current Complaints mobility, balance, weakness, endurance History of Current Condition Pt presents with abnormalities of balance, gait, strength, and decreased endurance. She reports that she uses furniture and underwood to assist with balance. Does not use an AD despite being told that she should. Hx of falls, most recent last when tripping over an object. Denies vertigo, dizziness. Report tingling in feet, numbness in plantar surfaces bilaterally. PMH of breast cancer, blood clots, headaches , memory loss, shortness of breath. Reports blood pressure usually low; does not get dizzy with positional changes. No falls otherwise, only near misses. Has several stairs with rails leading up to house and several inside (3 levels) . Lives with 2 adult sons. Retired Treatment Goals Patient/Caregiver Goals get stronger, improve endurance Current Functional Impairments (Reported) Functional Limitations- ADL's dressing Functional Limitations- Mobility/Gait /8 mi or 3-4 blocks ambulation sitting stairs Functional Limitations- Work/School retired PT-OP-C Subjective Start: 02/29/24 13:47 Freq: Status: Active Protocol: Document 04/18/24 13:48 NM (Rec: 04/18/24 14:36 NM [id number]) OP-PT Subjective Patient Comments Patient Comments Pt reports that she went to the walk in clinic on Thursday following kicking a bag with her R foot; she has knee pain, states had difficulty with WB . Pt able to ambulate today with difficulty. States improved since Thursday, no longer using AD at home to help. Still reaching for underwood to stabilize upon presentation at clinic. She has an anti-spasmotic and a pain pill. Reports much better but still has difficulty with stairs. PT-OP-D Balance Start: 02/29/24 13:47 Freq: Status: Active Protocol: Document 02/29/24 13:47 NM (Rec: 02/29/24 16:16 NM [id number]) Balance Tests Marrufo Balance Test Marrufo Balance Test Score 38/56 PT-OP-E Functional Tests Start: 02/29/24 13:47 Freq: Status: Active Protocol: Document 02/29/24 13:47 NM (Rec: 02/29/24 16:14 NM [id number]) Functional Tests Five Times Sit to Stand Test Score 13 seconds Comments uses momentum, poor form, no eccentric control PT-OP-F Manual Assessment Start: 02/29/24 13:47 Freq: Status: Active Protocol: Document 02/29/24 13:47 NM (Rec: 02/29/24 16:14 NM [id number]) Manual Assessments Soft Tissue Assessment Soft Tissue Mobility Assessment Decreased hip flexor length Joint Mobility Assessment Joint Mobility Assessment Decreased hip and trunk ROM PT-OP-G Mobility & Gait Start: 02/29/24 13:47 Freq: Status: Active Protocol: Document 02/29/24 13:47 NM (Rec: 02/29/24 16:14 NM [id number]) OP Gait Assessment Gait Gait Assistance Required: Standby Assistance Distance (Feet) 250 Assistive Devices Assistive Device None,Gait Belt Gait Deviations General Gait Pattern Antalgic,Decreased Feet Clearance,Flexed Trunk,Wide Based Gait Factors Limiting Gait Function Factors Limiting Gait Function Decreased Activity Tolerance, Decreased Sensation,Decreased Strength,Limited Range of Motion,Poor Balance Stair Climbing Evaluation Evaluation Level of Assist On Stairs Contact Guard Assistance Devices Stair Climbing Assistive Devices Left Railing Technique/Endurance Stair Climbing Direction Ascend and Descend Stair Climbing Technique Step to Step Number of Steps Climbed 4 Stair Climbing Set # Repetitions (reps) 2 Comments Stair Climbing Comments Poor descent control PT-OP-H Neuro Start: 02/29/24 13:47 Freq: Status: Active Protocol: Document 02/29/24 13:47 NM (Rec: 02/29/24 16:14 NM [id number]) Sensation Evaluation Comments Summary Comments BLE grossly intact to light touch sensation until plantar surface of foot. Numbness along plantar surface bilaterally PT-OP-J Posture/Palpation/Skin Start: 02/29/24 13:47 Freq: Status: Active Protocol: Document 02/29/24 13:47 NM (Rec: 02/29/24 16:14 NM [id number]) Posture Evaluation Position Standing Head/C-Spine Posture Forward Head T-Spine Posture Increased Kyphosis L-Spine Posture Increased Lordosis Pelvis Posture Anteriorly Tilted Hip Posture (L) Externally Rotated,(R) Externally Rotated Knee Posture (L) Genu Valgus,(R) Genu Valgus Ankle/Foot Posture (L) Pronated,(R) Pronated Foot Arch (L) Low Arch,(R) Low Arch Skin Assessment Other Assessments Skin Assessment Comments Multiple old bruises, purple hematomas from previous injuries along BLE PT-OP-K Range of Motion Start: 02/29/24 13:47 Freq: Status: Active Protocol: Document 02/29/24 13:47 NM (Rec: 02/29/24 16:14 NM [id number]) Ankle and Foot Goniometric Range of Motion Ankle and Foot ROM Limitations Comments Observable limitation in B ankle dorsiflexion PT-OP-M Strength Start: 02/29/24 13:47 Freq: Status: Active Protocol: Document 02/29/24 13:47 NM (Rec: 02/29/24 16:14 NM [id number]) Trunk Strength Trunk Manual Muscle Testing Flexion 3 Fair Extension 3 Fair Rotation Left 3 Fair Rotation Right 3 Fair Lateral Flexion Left 3 Fair Lateral Flexion Right 3 Fair Hip Strength Hip Manual Muscle Testing Right Flexion (L2) 3+ Fair+ Extension (S1) 3+ Fair+ Abduction 3+ Fair+ Left Flexion (L2) 3+ Fair+ Extension (S1) 3+ Fair+ Abduction 3+ Fair+ Knee Strength Knee Manual Muscle Testing Right Flexion (S2) 4- Good- Extension (L3) 4- Good- Left Flexion (S2) 4- Good- Extension (L3) 4- Good- Ankle/Foot Strength Ankle and Foot Manual Muscle Testing Right Dorsiflexion (L4) 4- Good- Plantarflexion (S1) 3 Fair Comments Plantarflexion tested in sitting Left Dorsiflexion (L4) 4- Good- Plantarflexion (S1) 3 Fair Comments Plantarflexion tested in sitting PT-OP-Q Treatments Start: 02/29/24 13:47 Freq: Status: Active Protocol: Document 04/18/24 13:48 NM (Rec: 04/18/24 14:36 NM [id number]) Therapeutic Exercises Supine Exercises SLR Supine Exercise Name with quad set Side right Reps/Minutes 10 Comments challenging but no increased pain Sidelying Exercises clam Side right Reps/Minutes 15 R Comments no pain hip abduction Sidelying Exercise Name cued hip IR Side bilateral Reps/Minutes 15 L, unable to perform on R side Comments cued no hip rotation fwd Sitting Exercises HSC Side right Resistance AROM > level 3 band Reps/Minutes 2x10 Comments no pain ankle PF Side bilateral Resistance AROM Reps/Minutes 2x10 ankle DF Side bilateral Resistance AROM Reps/Minutes 2x10 marching Side bilateral Resistance AROM Reps/Minutes 10 ea LAQ Side bilateral Resistance AROM < level 3 band Reps/Minutes 2x10 with 3 hold Comments pulling behind R posterior knee, no pain but Standing Exercises calf stretch Standing Exercise Name Gastroc Side bilateral Equipment Used staggered stance Reps/Minutes 60 each LE Comments good feedback stretch Manual Therapy Treatment Manual Techniques R knee ligament special tests Comments - Barbara - Medardo, joint line tenderness - Varus -Valgus Neuro Re-Education Treatment Balance Activities retro Comments trialed today but increased pt discomfort in R knee so d/c during session pt trialed independently at end of session, able to perform x10 ft without pain PT-OP-T Assessment and Plan Start: 02/29/24 13:47 Freq: Status: Active Protocol: Document 04/18/24 13:48 NM (Rec: 04/18/24 14:36 NM [id number]) Physical Therapy Assessment Goals Five Impairment gait Short Term Goal (STG) If appropriate, pt will be fit for LRAD for gait in order to demonstrate increased safety during ambulation, decreased fall risk, and activity tolerance 04/07/24: pt has been educated and fitted for trek poles; trialed and educated also on use of 4ww for safety. however , pt declines to use AD STG Duration 6 weeks MET Merit System Director Goal (LTG) Pt will be able to ambulate with or without LRAD at least community distances in order to demonstrate improved activity tolerance, safety during gait, and decreased fall risk LTG Duration 12 weeks Four Impairment confidence, activity tolerance Impairment ABC scale 58% Usp Goal (LTG) Pt will report > 65% confidence in not falling during ADLs in order to demonstrate improved ability to participate in community events and activities at home LTG Duration 12 weeks Three Impairment strength Impairment 5x STS 13 seconds Short Term Goal (STG) Pt will be able to perform at least 10 sit to stands without UE assistance or compensations from standard chair in order to demonstrate improved BLE strength for gait , balance, and transfers 04/05/24: 10 STS w. hip hinge, no UE support STG Duration 6 weeks MET Merit System Director Goal (LTG) Pt will be able to perform 5x STS without UE assistance and without compensations in at elast 12.6 seconds (age- related norm) in order to demonstrates improved BLE strength for gait, balance, and transfers LTG Duration 12 weeks Two Impairment dynamic balance Impairment DGI 07/14 Short Term Goal (STG) Pt will increase DGI score to at least 15/24 in order to demonstrate improved dynamic balance during gait and exercise 04/07/24: 11 STG Duration 6 weeks NOT MET Merit System Director Goal (LTG) Pt will increase DGI score to at least 19/24 in order to demonstrate improved dynamic balance during gait and exercise LTG Duration 12 weeks One Impairment balance Impairment Marrufo score 38/56 Short Term Goal (STG) Pt will increase Marrufo balance score to at least 45/56 in order to demonstrate improved balance without AD and decreased fall risk 04/07/24: 46/56 STG Duration 6 weeks MET Usp Goal (LTG) Pt will increase Marrufo balance score to at least 48/56 in order to demonstrate improved balance without AD and decreased fall risk LTG Duration 12 weeks Assessment Summary Assessment Pt presents with R knee pain following kicking a bag last Thursday. She does not have any ligamentous instability compared to LLE, pain is mildly increased with weightbearing but is improving with time and reps. Tolerated session fair. No increased R knee pain during or following exercises when asked. Pt able to perform AROM for all activities without increase in pain. Progressed back to LAQ and HSC with level 3 resistance band. Pt unable to perform retro ambulation during session due to R knee pain; however, she trialed 10 ft at end of session and able to perform without pain. Pt would benefit from skilled PT for progressive BLE strengthening, gait, and balance training in order to improve activity tolerance and ability to perform ADLs/IADLs . Physical Therapy Plan Frequency and Duration Frequency of Treatment 2x/Week Duration of treatment (weeks) 12 Plan of Care Start Date 02/29/24 Plan of Care End Date 05/27/24 Therapeutic Interventions Therapeutic Interventions Balance Training,Canalithic Repositioning,Gait Training, Home Exercise Program,Joint Mobilizations,Manual Therapy, Neuromuscular Re-education, Orthotic/Prosthetic Management ,Patient/Caregiver Education, Self-Care/Home Management,Soft Tissue Mobilization,Taping, Therapeutic Activities, Therapeutic Exercises, Vestibular Rehabilitation Modalities Cold Pack/Ice Massage,Hot Packs Next Visit Focus/Plan Next Note Type Treatment Note Next Visit Plan monitor vitals, fall risk Depending on knee: trial step up 4 vs leg press. Cont with balance: retro walk, carrying objects, hurdles Start biodex vs stepper depending on energy. Continue leg press for LE strengthening , next trial 4 step up. Continue resisted LAQ (ask doing home), side steps, and postural strengthening in addition to balance training Review MET, STM as needed; balance Next: , hip strength (revisit lat step down, side step), Next session: calf stretch off step. Add: ankle strength, continue descend stairs (trial 2 step); continue balance training, Continue encourage trek poles spc training -edu on use safety. Plan of care: hip strength, endurance, balance, stairs
--- NOTE | 2024-04-21 14:31 | PT.OTN ---
Current Diagnoses Unsteadiness on feet (04/21/24) Other lack of coordination (04/21/24) Weakness (04/21/24) Unspecified fall, initial encounter (04/21/24) Physical Therapy Treatment Note PT-OP-A Visit Information Start: 02/29/24 13:47 Freq: Status: Active Protocol: Document 04/21/24 13:51 SP (Rec: 04/21/24 14:32 SP [id number]) Out-Patient Physical Therapy Visit Information Visit Information Visit Type Treatment Note Visit Note 12/29 post PN Visit Start Time 13:51 Visit Stop Time 14:31 Visit Number 12 Number of NEWSPERSON Visits 1 Evaluation Information Evaluation Date 02/29/24 Precautions Precautions blood pressure, fall risk PT-OP-B Current Condition Start: 02/29/24 13:47 Freq: Status: Active Protocol: Document 02/29/24 13:47 NM (Rec: 02/29/24 16:14 NM [id number]) Current Condition History of Current Condition Current Complaints mobility, balance, weakness, endurance History of Current Condition Pt presents with abnormalities of balance, gait, strength, and decreased endurance. She reports that she uses furniture and underwood to assist with balance. Does not use an AD despite being told that she should. Hx of falls, most recent last when tripping over an object. Denies vertigo, dizziness. Report tingling in feet, numbness in plantar surfaces bilaterally. PMH of breast cancer, blood clots, headaches , memory loss, shortness of breath. Reports blood pressure usually low; does not get dizzy with positional changes. No falls otherwise, only near misses. Has several stairs with rails leading up to house and several inside (3 levels) . Lives with 2 adult sons. Retired Treatment Goals Patient/Caregiver Goals get stronger, improve endurance Current Functional Impairments (Reported) Functional Limitations- ADL's dressing Functional Limitations- Mobility/Gait 1/8 mi or 3-4 blocks ambulation sitting stairs Functional Limitations- Work/School retired PT-OP-C Subjective Start: 02/29/24 13:47 Freq: Status: Active Protocol: Document 04/21/24 13:51 SP (Rec: 04/21/24 14:32 SP [id number]) OP-PT Subjective Patient Comments Patient Comments Pt reports her knee is feeling better. PT-OP-D Balance Start: 02/29/24 13:47 Freq: Status: Active Protocol: Document 02/29/24 13:47 NM (Rec: 02/29/24 16:16 NM [id number]) Balance Tests Marrufo Balance Test Marrufo Balance Test Score 38/56 PT-OP-E Functional Tests Start: 02/29/24 13:47 Freq: Status: Active Protocol: Document 02/29/24 13:47 NM (Rec: 02/29/24 16:14 NM [id number]) Functional Tests Five Times Sit to Stand Test Score 13 seconds Comments uses momentum, poor form, no eccentric control PT-OP-F Manual Assessment Start: 02/29/24 13:47 Freq: Status: Active Protocol: Document 02/29/24 13:47 NM (Rec: 02/29/24 16:14 NM [id number]) Manual Assessments Soft Tissue Assessment Soft Tissue Mobility Assessment Decreased hip flexor length Joint Mobility Assessment Joint Mobility Assessment Decreased hip and trunk ROM PT-OP-G Mobility & Gait Start: 02/29/24 13:47 Freq: Status: Active Protocol: Document 02/29/24 13:47 NM (Rec: 02/29/24 16:14 NM [id number]) OP Gait Assessment Gait Gait Assistance Required: Standby Assistance Distance (Feet) 250 Assistive Devices Assistive Device None,Gait Belt Gait Deviations General Gait Pattern Antalgic,Decreased Feet Clearance,Flexed Trunk,Wide Based Gait Factors Limiting Gait Function Factors Limiting Gait Function Decreased Activity Tolerance, Decreased Sensation,Decreased Strength,Limited Range of Motion,Poor Balance Stair Climbing Evaluation Evaluation Level of Assist On Stairs Contact Guard Assistance Devices Stair Climbing Assistive Devices Left Railing Technique/Endurance Stair Climbing Direction Ascend and Descend Stair Climbing Technique Step to Step Number of Steps Climbed 4 Stair Climbing Set # Repetitions (reps) 2 Comments Stair Climbing Comments Poor descent control PT-OP-H Neuro Start: 02/29/24 13:47 Freq: Status: Active Protocol: Document 02/29/24 13:47 NM (Rec: 02/29/24 16:14 NM [id number]) Sensation Evaluation Comments Summary Comments BLE grossly intact to light touch sensation until plantar surface of foot. Numbness along plantar surface bilaterally PT-OP-J Posture/Palpation/Skin Start: 02/29/24 13:47 Freq: Status: Active Protocol: Document 02/29/24 13:47 NM (Rec: 02/29/24 16:14 NM [id number]) Posture Evaluation Position Standing Head/C-Spine Posture Forward Head T-Spine Posture Increased Kyphosis L-Spine Posture Increased Lordosis Pelvis Posture Anteriorly Tilted Hip Posture (L) Externally Rotated,(R) Externally Rotated Knee Posture (L) Genu Valgus,(R) Genu Valgus Ankle/Foot Posture (L) Pronated,(R) Pronated Foot Arch (L) Low Arch,(R) Low Arch Skin Assessment Other Assessments Skin Assessment Comments Multiple old bruises, purple hematomas from previous injuries along BLE PT-OP-K Range of Motion Start: 02/29/24 13:47 Freq: Status: Active Protocol: Document 02/29/24 13:47 NM (Rec: 02/29/24 16:14 NM [id number]) Ankle and Foot Goniometric Range of Motion Ankle and Foot ROM Limitations Comments Observable limitation in B ankle dorsiflexion PT-OP-M Strength Start: 02/29/24 13:47 Freq: Status: Active Protocol: Document 02/29/24 13:47 NM (Rec: 02/29/24 16:14 NM [id number]) Trunk Strength Trunk Manual Muscle Testing Flexion 3 Fair Extension 3 Fair Rotation Left 3 Fair Rotation Right 3 Fair Lateral Flexion Left 3 Fair Lateral Flexion Right 3 Fair Hip Strength Hip Manual Muscle Testing Right Flexion (L2) 3+ Fair+ Extension (S1) 3+ Fair+ Abduction 3+ Fair+ Left Flexion (L2) 3+ Fair+ Extension (S1) 3+ Fair+ Abduction 3+ Fair+ Knee Strength Knee Manual Muscle Testing Right Flexion (S2) 4- Good- Extension (L3) 4- Good- Left Flexion (S2) 4- Good- Extension (L3) 4- Good- Ankle/Foot Strength Ankle and Foot Manual Muscle Testing Right Dorsiflexion (L4) 4- Good- Plantarflexion (S1) 3 Fair Comments Plantarflexion tested in sitting Left Dorsiflexion (L4) 4- Good- Plantarflexion (S1) 3 Fair Comments Plantarflexion tested in sitting PT-OP-Q Treatments Start: 02/29/24 13:47 Freq: Status: Active Protocol: Document 04/21/24 13:51 SP (Rec: 04/21/24 14:32 SP [id number]) Therapeutic Exercises Supine Exercises SLR Supine Exercise Name 1. quad set 2. QS /c SLR Side right Reps/Minutes 1. 3 sec x10 2. x10 each LE Comments good form /c cues, pnfree Sidelying Exercises clam Side bilateral Reps/Minutes 15 drea Comments no pain, cued slower pacing no trunk rot hip abduction Sidelying Exercise Name cued hip IR Side bilateral Equipment Used pillows between BLE during R. Reps/Minutes 15 L, 10 R Comments cued stacked on side, tiring challenge pn free Sitting Exercises HSC Side right Resistance level 3 band therapist anchored Reps/Minutes 2x10 Comments no pain ankle PF Side bilateral Resistance AROM Reps/Minutes 2x10 ankle DF Side bilateral Resistance AROM Reps/Minutes 2x10 LAQ Side bilateral Resistance level 3 band at foreft/ankle Reps/Minutes x15, 10 at 3 hold Comments pulling behind R posterior knee, no pain but Neuro Re-Education Treatment Balance Activities dynamic stepping Details fwd walking /c head turns carrying cup water Reps/Duration 50 ft x2 laps Comments cued rhomboid fac, midline stability, only 1 over vier L self correct retro Reps/Duration 10 ft x4 laps Comments cued increase KELSIE, elongated posture hurdles Details fwd near rail Equipment 6 hurdles, receiprocal stepping Reps/Duration 10 feet of 6 hurdles X 4 laps PT-OP-T Assessment and Plan Start: 02/29/24 13:47 Freq: Status: Active Protocol: Document 04/21/24 13:51 SP (Rec: 04/21/24 14:32 SP [id number]) Physical Therapy Assessment Goals Five Impairment gait Short Term Goal (STG) If appropriate, pt will be fit for LRAD for gait in order to demonstrate increased safety during ambulation, decreased fall risk, and activity tolerance 04/07/24: pt has been educated and fitted for trek poles; trialed and educated also on use of 4ww for safety. however , pt declines to use AD STG Duration 6 weeks MET Intermediate Goal (LTG) Pt will be able to ambulate with or without LRAD at least community distances in order to demonstrate improved activity tolerance, safety during gait, and decreased fall risk LTG Duration 12 weeks Four Impairment confidence, activity tolerance Impairment ABC scale 58% Retail Cashier Associate Goal (LTG) Pt will report > 65% confidence in not falling during ADLs in order to demonstrate improved ability to participate in community events and activities at home LTG Duration 12 weeks Three Impairment strength Impairment 5x STS 13 seconds Short Term Goal (STG) Pt will be able to perform at least 10 sit to stands without UE assistance or compensations from standard chair in order to demonstrate improved BLE strength for gait , balance, and transfers 04/05/24: 10 STS w. hip hinge, no UE support STG Duration 6 weeks MET Intermediate Goal (LTG) Pt will be able to perform 5x STS without UE assistance and without compensations in at elast 12.6 seconds (age- related norm) in order to demonstrates improved BLE strength for gait, balance, and transfers LTG Duration 12 weeks Two Impairment dynamic balance Impairment DGI 07/14 Short Term Goal (STG) Pt will increase DGI score to at least 15/24 in order to demonstrate improved dynamic balance during gait and exercise 04/07/24: 08/14 STG Duration 6 weeks NOT MET Intermediate Goal (LTG) Pt will increase DGI score to at least 19/24 in order to demonstrate improved dynamic balance during gait and exercise LTG Duration 12 weeks One Impairment balance Impairment Marrufo score 38/56 Short Term Goal (STG) Pt will increase Marrufo balance score to at least 45/56 in order to demonstrate improved balance without AD and decreased fall risk 04/07/24: 46/56 STG Duration 6 weeks MET Intermediate Goal (LTG) Pt will increase Marurfo balance score to at least 48/56 in order to demonstrate improved balance without AD and decreased fall risk LTG Duration 12 weeks Assessment Summary Assessment Pt responded well to ther ex this tx. Noted able to perform SLR, hip abd and clamshell with LLE no pain just tiring. Not need to use rail support during hurdles today and improved midline stabiltiy duirng dynamic walking, self midline correction over wt shift viering. Pt had no knee pain throughout tx until end leaving lateral on R. Physical Therapy Plan Frequency and Duration Frequency of Treatment 2x/Week Duration of treatment (weeks) 12 Plan of Care Start Date 02/29/24 Plan of Care End Date 05/27/24 Therapeutic Interventions Therapeutic Interventions Balance Training,Canalithic Repositioning,Gait Training, Home Exercise Program,Joint Mobilizations,Manual Therapy, Neuromuscular Re-education, Orthotic/Prosthetic Management ,Patient/Caregiver Education, Self-Care/Home Management,Soft Tissue Mobilization,Taping, Therapeutic Activities, Therapeutic Exercises, Vestibular Rehabilitation Modalities Cold Pack/Ice Massage,Hot Packs Next Visit Focus/Plan Next Note Type Treatment Note Next Visit Plan monitor vitals, fall risk Depending on knee: trial step up 4 vs leg press. Cont with balance: retro walk, carrying objects, hurdles Start biodex vs stepper depending on energy. Continue leg press for LE strengthening , next trial 4 step up. Continue resisted LAQ (ask doing home), side steps, and postural strengthening in addition to balance training Review MET, STM as needed; balance Next: , hip strength (revisit lat step down, side step), Next session: calf stretch off step. Add: ankle strength, continue descend stairs (trial 2 step); continue balance training, Continue encourage trek poles spc training -edu on use safety. Plan of care: hip strength, endurance, balance, stairs
--- NOTE | 2024-04-25 15:41 | PT.OTN ---
Current Diagnoses Unsteadiness on feet (04/25/24) Other lack of coordination (04/25/24) Weakness (04/25/24) Unspecified fall, initial encounter (04/25/24) Physical Therapy Treatment Note PT-OP-A Visit Information Start: 02/29/24 13:47 Freq: Status: Active Protocol: Document 04/25/24 13:49 NM (Rec: 04/25/24 14:34 NM [id number]) Out-Patient Physical Therapy Visit Information Visit Information Visit Type Treatment Note Visit Note 01/28 post PN Visit Start Time 13:49 Visit Stop Time 14:30 Visit Number 13 PT-OP-B Current Condition Start: 02/29/24 13:47 Freq: Status: Active Protocol: Document 02/29/24 13:47 NM (Rec: 02/29/24 16:14 NM [id number]) Current Condition History of Current Condition Current Complaints mobility, balance, weakness, endurance History of Current Condition Pt presents with abnormalities of balance, gait, strength, and decreased endurance. She reports that she uses furniture and underwood to assist with balance. Does not use an AD despite being told that she should. Hx of falls, most recent last when tripping over an object. Denies vertigo, dizziness. Report tingling in feet, numbness in plantar surfaces bilaterally. PMH of breast cancer, blood clots, headaches , memory loss, shortness of breath. Reports blood pressure usually low; does not get dizzy with positional changes. No falls otherwise, only near misses. Has several stairs with rails leading up to house and several inside (3 levels) . Lives with 2 adult sons. Retired Treatment Goals Patient/Caregiver Goals get stronger, improve endurance Current Functional Impairments (Reported) Functional Limitations- ADL's dressing Functional Limitations- Mobility/Gait 8 mi or 3-4 blocks ambulation sitting stairs Functional Limitations- Work/School retired PT-OP-C Subjective Start: 02/29/24 13:47 Freq: Status: Active Protocol: Document 04/25/24 13:49 NM (Rec: 04/25/24 14:34 NM [id number]) OP-PT Subjective Patient Comments Patient Comments Pt reports she woke up hurting really bad. She iced the sore spots on her back and knees. She went to chiro, feels better after her adjustment. PT-OP-D Balance Start: 02/29/24 13:47 Freq: Status: Active Protocol: Document 02/29/24 13:47 NM (Rec: 02/29/24 16:16 NM [id number]) Balance Tests Marrufo Balance Test Marrufo Balance Test Score 38/56 PT-OP-E Functional Tests Start: 02/29/24 13:47 Freq: Status: Active Protocol: Document 02/29/24 13:47 NM (Rec: 02/29/24 16:14 NM [id number]) Functional Tests Five Times Sit to Stand Test Score 13 seconds Comments uses momentum, poor form, no eccentric control PT-OP-F Manual Assessment Start: 02/29/24 13:47 Freq: Status: Active Protocol: Document 02/29/24 13:47 NM (Rec: 02/29/24 16:14 NM [id number]) Manual Assessments Soft Tissue Assessment Soft Tissue Mobility Assessment Decreased hip flexor length Joint Mobility Assessment Joint Mobility Assessment Decreased hip and trunk ROM PT-OP-G Mobility & Gait Start: 02/29/24 13:47 Freq: Status: Active Protocol: Document 02/29/24 13:47 NM (Rec: 02/29/24 16:14 NM [id number]) OP Gait Assessment Gait Gait Assistance Required: Standby Assistance Distance (Feet) 250 Assistive Devices Assistive Device None,Gait Belt Gait Deviations General Gait Pattern Antalgic,Decreased Feet Clearance,Flexed Trunk,Wide Based Gait Factors Limiting Gait Function Factors Limiting Gait Function Decreased Activity Tolerance, Decreased Sensation,Decreased Strength,Limited Range of Motion,Poor Balance Stair Climbing Evaluation Evaluation Level of Assist On Stairs Contact Guard Assistance Devices Stair Climbing Assistive Devices Left Railing Technique/Endurance Stair Climbing Direction Ascend and Descend Stair Climbing Technique Step to Step Number of Steps Climbed 4 Stair Climbing Set # Repetitions (reps) 2 Comments Stair Climbing Comments Poor descent control PT-OP-H Neuro Start: 02/29/24 13:47 Freq: Status: Active Protocol: Document 02/29/24 13:47 NM (Rec: 02/29/24 16:14 NM [id number]) Sensation Evaluation Comments Summary Comments BLE grossly intact to light touch sensation until plantar surface of foot. Numbness along plantar surface bilaterally PT-OP-J Posture/Palpation/Skin Start: 02/29/24 13:47 Freq: Status: Active Protocol: Document 02/29/24 13:47 NM (Rec: 02/29/24 16:14 NM [id number]) Posture Evaluation Position Standing Head/C-Spine Posture Forward Head T-Spine Posture Increased Kyphosis L-Spine Posture Increased Lordosis Pelvis Posture Anteriorly Tilted Hip Posture (L) Externally Rotated,(R) Externally Rotated Knee Posture (L) Genu Valgus,(R) Genu Valgus Ankle/Foot Posture (L) Pronated,(R) Pronated Foot Arch (L) Low Arch,(R) Low Arch Skin Assessment Other Assessments Skin Assessment Comments Multiple old bruises, purple hematomas from previous injuries along BLE PT-OP-K Range of Motion Start: 02/29/24 13:47 Freq: Status: Active Protocol: Document 02/29/24 13:47 NM (Rec: 02/29/24 16:14 NM [id number]) Ankle and Foot Goniometric Range of Motion Ankle and Foot ROM Limitations Comments Observable limitation in B ankle dorsiflexion PT-OP-M Strength Start: 02/29/24 13:47 Freq: Status: Active Protocol: Document 02/29/24 13:47 NM (Rec: 02/29/24 16:14 NM [id number]) Trunk Strength Trunk Manual Muscle Testing Flexion 3 Fair Extension 3 Fair Rotation Left 3 Fair Rotation Right 3 Fair Lateral Flexion Left 3 Fair Lateral Flexion Right 3 Fair Hip Strength Hip Manual Muscle Testing Right Flexion (L2) 3+ Fair+ Extension (S1) 3+ Fair+ Abduction 3+ Fair+ Left Flexion (L2) 3+ Fair+ Extension (S1) 3+ Fair+ Abduction 3+ Fair+ Knee Strength Knee Manual Muscle Testing Right Flexion (S2) 4- Good- Extension (L3) 4- Good- Left Flexion (S2) 4- Good- Extension (L3) 4- Good- Ankle/Foot Strength Ankle and Foot Manual Muscle Testing Right Dorsiflexion (L4) 4- Good- Plantarflexion (S1) 3 Fair Comments Plantarflexion tested in sitting Left Dorsiflexion (L4) 4- Good- Plantarflexion (S1) 3 Fair Comments Plantarflexion tested in sitting PT-OP-Q Treatments Start: 02/29/24 13:47 Freq: Status: Active Protocol: Document 04/25/24 13:49 NM (Rec: 04/25/24 14:34 NM [id number]) Therapeutic Exercises Sitting Exercises sit to stand Sitting Exercise Name buttock tap squat (HEP) Side bilateral Resistance 5.5#ball in hands Reps/Minutes 2x10 Comments cued anterior WS; fatigues quickly Standing Exercises step up Standing Exercise Name 4 > 6 step Side bilateral Equipment Used prn hand support for balance Reps/Minutes 10 ea step height, ea leg Neuro Re-Education Treatment Balance Activities outdoor ambulation Surface unstable-gravel, ramps Equipment gait belt, close SBA with prn CGA Reps/Duration 2x25 ft, 3 reps ramp Comments cued WS and centering over KELSIE . 1 instance LOB but able to catch with hand support on wall dynamic stepping Details while holding cone and ball in cone Equipment CGA Reps/Duration 2x25 ft ea direction Comments 1. fwd 2. retro 3. carioca 4. tandem mat with obsticals under Surface unstable: mat, hurdles, elevated surface Equipment CGA to min A to steady Reps/Duration 2x20 ft step up taps Surface no hand support, close SBA with 1 instance CGA Reps/Duration 8 ea leg- alternating Comments 1. double tap same step 2. double tap, 2 different steps PT-OP-T Assessment and Plan Start: 02/29/24 13:47 Freq: Status: Active Protocol: Document 04/25/24 13:49 NM (Rec: 04/25/24 14:34 NM [id number]) Physical Therapy Assessment Goals Five Impairment gait Short Term Goal (STG) If appropriate, pt will be fit for LRAD for gait in order to demonstrate increased safety during ambulation, decreased fall risk, and activity tolerance 04/07/24: pt has been educated and fitted for trek poles; trialed and educated also on use of 4ww for safety. however , pt declines to use AD STG Duration 6 weeks MET Rolled Seat Trimmer Goal (LTG) Pt will be able to ambulate with or without LRAD at least community distances in order to demonstrate improved activity tolerance, safety during gait, and decreased fall risk LTG Duration 12 weeks Four Impairment confidence, activity tolerance Impairment ABC scale 58% Halfway Goal (LTG) Pt will report > 65% confidence in not falling during ADLs in order to demonstrate improved ability to participate in community events and activities at home LTG Duration 12 weeks Three Impairment strength Impairment 5x STS 13 seconds Short Term Goal (STG) Pt will be able to perform at least 10 sit to stands without UE assistance or compensations from standard chair in order to demonstrate improved BLE strength for gait , balance, and transfers 04/05/24: 10 STS w. hip hinge, no UE support STG Duration 6 weeks MET Rolled Seat Trimmer Goal (LTG) Pt will be able to perform 5x STS without UE assistance and without compensations in at elast 12.6 seconds (age- related norm) in order to demonstrates improved BLE strength for gait, balance, and transfers LTG Duration 12 weeks Two Impairment dynamic balance Impairment DGI 10 Short Term Goal (STG) Pt will increase DGI score to at least 15/24 in order to demonstrate improved dynamic balance during gait and exercise 04/07/24: 08/14 STG Duration 6 weeks NOT MET Halfway Goal (LTG) Pt will increase DGI score to at least 19/24 in order to demonstrate improved dynamic balance during gait and exercise LTG Duration 12 weeks One Impairment balance Impairment Marrufo score 38/56 Short Term Goal (STG) Pt will increase Marrufo balance score to at least 45/56 in order to demonstrate improved balance without AD and decreased fall risk 04/07/24: 46/56 STG Duration 6 weeks MET Rolled Seat Trimmer Goal (LTG) Pt will increase Marrufo balance score to at least 48/56 in order to demonstrate improved balance without AD and decreased fall risk LTG Duration 12 weeks Assessment Summary Assessment Pt tolerated treatment well. She demonstrates improved tolerance for ther-ex today. Pt progressed from 4 to 6 step up today. Maria [place]en increased trunk lean as she fatigues but no knee pain today. Pt also progressed to buttock taps with resistance for sit to stand; fatiguing for pt and she becomes SOB but able to complete with some rest. Pt demos improved ability to alternate legs with step taps and during stepping activities . Able to carry object to reduce visual dependence for all except tandem walk, which still requires min A from PT and visual support from pt. PT also continues to recommend pt use AD for balance during community ambulation. Pt would benefit from skilled PT for balance and strength training in order to improve activity tolerance and reduce fall risk . Physical Therapy Plan Frequency and Duration Frequency of Treatment 2x/Week Duration of treatment (weeks) 12 Plan of Care Start Date 02/29/24 Plan of Care End Date 05/27/24 Therapeutic Interventions Therapeutic Interventions Balance Training,Canalithic Repositioning,Gait Training, Home Exercise Program,Joint Mobilizations,Manual Therapy, Neuromuscular Re-education, Orthotic/Prosthetic Management ,Patient/Caregiver Education, Self-Care/Home Management,Soft Tissue Mobilization,Taping, Therapeutic Activities, Therapeutic Exercises, Vestibular Rehabilitation Modalities Cold Pack/Ice Massage,Hot Packs Next Visit Focus/Plan Next Note Type Treatment Note Next Visit Plan monitor vitals, fall risk step up 4 lateral, step up fwd 6 vs leg press. hip 3 way , november, knee ext, HSC. Cont with balance: unstable surface , retro walk, carrying objects , hurdles, obstacle course, ball toss, bungee, shuttle balance Start biodex vs stepper depending on energy. Continue leg press for LE strengthening , next trial 4 step up. Continue resisted LAQ (ask doing home), side steps, and postural strengthening in addition to balance training Review MET, STM as needed; balance Next: , hip strength (revisit lat step down, side step), Plan of care: hip strength, endurance, balance, stairs
--- NOTE | 2024-04-27 14:31 | PT.OTN ---
Current Diagnoses Unsteadiness on feet (04/27/24) Other lack of coordination (04/27/24) Weakness (04/27/24) Unspecified fall, initial encounter (04/27/24) Physical Therapy Treatment Note PT-OP-A Visit Information Start: 02/29/24 13:47 Freq: Status: Active Protocol: Document 04/27/24 13:50 NM (Rec: 04/27/24 14:31 NM [id number]) Out-Patient Physical Therapy Visit Information Visit Information Visit Type Treatment Note Visit Note 02/28 post PN Visit Start Time 13:51 Visit Stop Time 14:30 Visit Number 14 PT-OP-B Current Condition Start: 02/29/24 13:47 Freq: Status: Active Protocol: Document 02/29/24 13:47 NM (Rec: 02/29/24 16:14 NM [id number]) Current Condition History of Current Condition Current Complaints mobility, balance, weakness, endurance History of Current Condition Pt presents with abnormalities of balance, gait, strength, and decreased endurance. She reports that she uses furniture and underwood to assist with balance. Does not use an AD despite being told that she should. Hx of falls, most recent last when tripping over an object. Denies vertigo, dizziness. Report tingling in feet, numbness in plantar surfaces bilaterally. PMH of breast cancer, blood clots, headaches , memory loss, shortness of breath. Reports blood pressure usually low; does not get dizzy with positional changes. No falls otherwise, only near misses. Has several stairs with rails leading up to house and several inside (3 levels) . Lives with 2 adult sons. Retired Treatment Goals Patient/Caregiver Goals get stronger, improve endurance Current Functional Impairments (Reported) Functional Limitations- ADL's dressing Functional Limitations- Mobility/Gait 09/28 mi or 3-4 blocks ambulation sitting stairs Functional Limitations- Work/School retired PT-OP-C Subjective Start: 02/29/24 13:47 Freq: Status: Active Protocol: Document 04/27/24 13:50 NM (Rec: 04/27/24 14:31 NM [id number]) OP-PT Subjective Patient Comments Patient Comments Pt reports that her R knee is hurting, she kicked something again today and states has been hurting bad again. She went to the doctor today, states knee is healing in her own. PT-OP-D Balance Start: 02/29/24 13:47 Freq: Status: Active Protocol: Document 02/29/24 13:47 NM (Rec: 02/29/24 16:16 NM [id number]) Balance Tests Marrufo Balance Test Marrufo Balance Test Score 38/56 PT-OP-E Functional Tests Start: 02/29/24 13:47 Freq: Status: Active Protocol: Document 02/29/24 13:47 NM (Rec: 02/29/24 16:14 NM [id number]) Functional Tests Five Times Sit to Stand Test Score 13 seconds Comments uses momentum, poor form, no eccentric control PT-OP-F Manual Assessment Start: 02/29/24 13:47 Freq: Status: Active Protocol: Document 02/29/24 13:47 NM (Rec: 02/29/24 16:14 NM [id number]) Manual Assessments Soft Tissue Assessment Soft Tissue Mobility Assessment Decreased hip flexor length Joint Mobility Assessment Joint Mobility Assessment Decreased hip and trunk ROM PT-OP-G Mobility & Gait Start: 02/29/24 13:47 Freq: Status: Active Protocol: Document 02/29/24 13:47 NM (Rec: 02/29/24 16:14 NM [id number]) OP Gait Assessment Gait Gait Assistance Required: Standby Assistance Distance (Feet) 250 Assistive Devices Assistive Device None,Gait Belt Gait Deviations General Gait Pattern Antalgic,Decreased Feet Clearance,Flexed Trunk,Wide Based Gait Factors Limiting Gait Function Factors Limiting Gait Function Decreased Activity Tolerance, Decreased Sensation,Decreased Strength,Limited Range of Motion,Poor Balance Stair Climbing Evaluation Evaluation Level of Assist On Stairs Contact Guard Assistance Devices Stair Climbing Assistive Devices Left Railing Technique/Endurance Stair Climbing Direction Ascend and Descend Stair Climbing Technique Step to Step Number of Steps Climbed 4 Stair Climbing Set # Repetitions (reps) 2 Comments Stair Climbing Comments Poor descent control PT-OP-H Neuro Start: 02/29/24 13:47 Freq: Status: Active Protocol: Document 02/29/24 13:47 NM (Rec: 02/29/24 16:14 NM [id number]) Sensation Evaluation Comments Summary Comments BLE grossly intact to light touch sensation until plantar surface of foot. Numbness along plantar surface bilaterally PT-OP-J Posture/Palpation/Skin Start: 02/29/24 13:47 Freq: Status: Active Protocol: Document 02/29/24 13:47 NM (Rec: 02/29/24 16:14 NM [id number]) Posture Evaluation Position Standing Head/C-Spine Posture Forward Head T-Spine Posture Increased Kyphosis L-Spine Posture Increased Lordosis Pelvis Posture Anteriorly Tilted Hip Posture (L) Externally Rotated,(R) Externally Rotated Knee Posture (L) Genu Valgus,(R) Genu Valgus Ankle/Foot Posture (L) Pronated,(R) Pronated Foot Arch (L) Low Arch,(R) Low Arch Skin Assessment Other Assessments Skin Assessment Comments Multiple old bruises, purple hematomas from previous injuries along BLE PT-OP-K Range of Motion Start: 02/29/24 13:47 Freq: Status: Active Protocol: Document 02/29/24 13:47 NM (Rec: 02/29/24 16:14 NM [id number]) Ankle and Foot Goniometric Range of Motion Ankle and Foot ROM Limitations Comments Observable limitation in B ankle dorsiflexion PT-OP-M Strength Start: 02/29/24 13:47 Freq: Status: Active Protocol: Document 02/29/24 13:47 NM (Rec: 02/29/24 16:14 NM [id number]) Trunk Strength Trunk Manual Muscle Testing Flexion 3 Fair Extension 3 Fair Rotation Left 3 Fair Rotation Right 3 Fair Lateral Flexion Left 3 Fair Lateral Flexion Right 3 Fair Hip Strength Hip Manual Muscle Testing Right Flexion (L2) 3+ Fair+ Extension (S1) 3+ Fair+ Abduction 3+ Fair+ Left Flexion (L2) 3+ Fair+ Extension (S1) 3+ Fair+ Abduction 3+ Fair+ Knee Strength Knee Manual Muscle Testing Right Flexion (S2) 4- Good- Extension (L3) 4- Good- Left Flexion (S2) 4- Good- Extension (L3) 4- Good- Ankle/Foot Strength Ankle and Foot Manual Muscle Testing Right Dorsiflexion (L4) 4- Good- Plantarflexion (S1) 3 Fair Comments Plantarflexion tested in sitting Left Dorsiflexion (L4) 4- Good- Plantarflexion (S1) 3 Fair Comments Plantarflexion tested in sitting PT-OP-Q Treatments Start: 02/29/24 13:47 Freq: Status: Active Protocol: Document 04/27/24 13:50 NM (Rec: 04/27/24 14:31 NM [id number]) Gym Equipment Shuttle Recovery Unilateral Squats Resistance 50# navy bands Reps/Time 3x10 Therapeutic Exercises Standing Exercises step up Standing Exercise Name 6 stairs for DGI Side bilateral Reps/Minutes 2 sets x 4 stairs Comments close SBA w/ rail, CGA w/o rail on descent bilateral heel raise Side bilateral Resistance AROM Reps/Minutes 2x15 Neuro Re-Education Treatment Balance Activities dynamic stepping Details CGA to steady Equipment hands hovering over //bars Reps/Duration 10 ea Comments fwd step up on 4 step with foam cued to stabilize over KELSIE, keep nose over belly button, demos trunk lean to side over stepping leg DGI Reps/Duration ball toss Details CGA Comments to trampoline, while standing on foam 1. 60 on foam, normal KELSIE 2. 60 ea leg; with front foot on foam, staggered stance Good reactions to catching ball and quick directional changes without LOB, CGA to steady 1x hurdles Details CGA to steady Comments 1. fwd with 2 feet 2. lateral with 2 fet 3. fwd with 1 foot reciprocal 4. fwd arnoldo with foam pad in btwn, 2 feet 5. fwd arnoldo with foam pad in btwn, reciprocal PT-OP-T Assessment and Plan Start: 02/29/24 13:47 Freq: Status: Active Protocol: Document 04/27/24 13:50 NM (Rec: 04/27/24 14:31 NM [id number]) Physical Therapy Assessment Goals Five Impairment gait Short Term Goal (STG) If appropriate, pt will be fit for LRAD for gait in order to demonstrate increased safety during ambulation, decreased fall risk, and activity tolerance 04/07/24: pt has been educated and fitted for trek poles; trialed and educated also on use of 4ww for safety. however , pt declines to use AD STG Duration 6 weeks MET Senior Care Goal (LTG) Pt will be able to ambulate with or without LRAD at least community distances in order to demonstrate improved activity tolerance, safety during gait, and decreased fall risk LTG Duration 12 weeks Four Impairment confidence, activity tolerance Impairment ABC scale 58% Senior Care Goal (LTG) Pt will report > 65% confidence in not falling during ADLs in order to demonstrate improved ability to participate in community events and activities at home LTG Duration 12 weeks Three Impairment strength Impairment 5x STS 13 seconds Short Term Goal (STG) Pt will be able to perform at least 10 sit to stands without UE assistance or compensations from standard chair in order to demonstrate improved BLE strength for gait , balance, and transfers 04/05/24: 10 STS w. hip hinge, no UE support STG Duration 6 weeks MET Fire Apparatus Engineer Goal (LTG) Pt will be able to perform 5x STS without UE assistance and without compensations in at elast 12.6 seconds (age- related norm) in order to demonstrates improved BLE strength for gait, balance, and transfers LTG Duration 12 weeks Two Impairment dynamic balance Impairment DGI 07/14 Short Term Goal (STG) Pt will increase DGI score to at least 15/ in order to demonstrate improved dynamic balance during gait and exercise 04/07/24: 08/14 STG Duration 6 weeks NOT MET Senior Care Goal (LTG) Pt will increase DGI score to at least 19/24 in order to demonstrate improved dynamic balance during gait and exercise LTG Duration 12 weeks One Impairment balance Impairment Marrufo score 38/56 Short Term Goal (STG) Pt will increase Marrufo balance score to at least 45/56 in order to demonstrate improved balance without AD and decreased fall risk 04/07/24: 46/56 STG Duration 6 weeks MET Fire Apparatus Engineer Goal (LTG) Pt will increase Marrufo balance score to at least 48/56 in order to demonstrate improved balance without AD and decreased fall risk LTG Duration 12 weeks Assessment Summary Assessment Pt tolerated session well despite reports of R knee pain at start of session. She demonstrates improved trunk stability and ability to clear hurdles with less cueing of circumduction. Continues to have signs of instability with DGI, especially with turning head. However, still ( improved from 07/14)Session emphasis on maintaining stability while on unstable surface to improve proprioceptive feedback and decrease visual feedback for balance. Pt able to perform increased reps for unilateral leg press without any increase in knee pain. She would benefit from skilled PT for gait and balance training in order to improve symptom management, decrease fall risk , and improve BLE strength to promote better stability during ADLs. Physical Therapy Plan Frequency and Duration Frequency of Treatment 2x/Week Duration of treatment (weeks) 12 Plan of Care Start Date 02/29/24 Plan of Care End Date 05/27/24 Therapeutic Interventions Therapeutic Interventions Balance Training,Canalithic Repositioning,Gait Training, Home Exercise Program,Joint Mobilizations,Manual Therapy, Neuromuscular Re-education, Orthotic/Prosthetic Management ,Patient/Caregiver Education, Self-Care/Home Management,Soft Tissue Mobilization,Taping, Therapeutic Activities, Therapeutic Exercises, Vestibular Rehabilitation Modalities Cold Pack/Ice Massage,Hot Packs Next Visit Focus/Plan Next Note Type Treatment Note Next Visit Plan monitor vitals, fall risk Marrufo activities, step down 4-6 fwd and lateral, leg press. hip 3 way, november, knee ext, HSC. Cont with balance: unstable surface, retro walk, carrying objects, hurdles, obstacle course, ball toss, bungee, shuttle balance Start biodex vs stepper depending on energy. Continue leg press for LE strengthening , next trial 4 step up. Continue resisted LAQ (ask doing home), side steps, and postural strengthening in addition to balance training Review MET, STM as needed; balance Next: , hip strength (revisit lat step down, side step), Plan of care: hip strength, endurance, balance, stairs
--- NOTE | 2024-05-05 15:31 | PT.OTN ---
Current Diagnoses Unsteadiness on feet (05/05/24) Other lack of coordination (05/05/24) Weakness (05/05/24) Unspecified fall, initial encounter (05/05/24) Physical Therapy Treatment Note PT-OP-A Visit Information Start: 02/29/24 13:47 Freq: Status: Active Protocol: Document 05/05/24 13:49 NM (Rec: 05/05/24 14:33 NM [id number]) Out-Patient Physical Therapy Visit Information Visit Information Visit Type Treatment Note Visit Note 03/30 post PN Visit Start Time 13:50 Visit Stop Time 14:28 Visit Number 15 Evaluation Information Evaluation Date 02/29/24 Precautions Precautions blood pressure, fall risk PT-OP-B Current Condition Start: 02/29/24 13:47 Freq: Status: Active Protocol: Document 02/29/24 13:47 NM (Rec: 02/29/24 16:14 NM [id number]) Current Condition History of Current Condition Current Complaints mobility, balance, weakness, endurance History of Current Condition Pt presents with abnormalities of balance, gait, strength, and decreased endurance. She reports that she uses furniture and underwood to assist with balance. Does not use an AD despite being told that she should. Hx of falls, most recent last when tripping over an object. Denies vertigo, dizziness. Report tingling in feet, numbness in plantar surfaces bilaterally. PMH of breast cancer, blood clots, headaches , memory loss, shortness of breath. Reports blood pressure usually low; does not get dizzy with positional changes. No falls otherwise, only near misses. Has several stairs with rails leading up to house and several inside (3 levels) . Lives with 2 adult sons. Retired Treatment Goals Patient/Caregiver Goals get stronger, improve endurance Current Functional Impairments (Reported) Functional Limitations- ADL's dressing Functional Limitations- Mobility/Gait 1/8 mi or 3-4 blocks ambulation sitting stairs Functional Limitations- Work/School retired PT-OP-C Subjective Start: 02/29/24 13:47 Freq: Status: Active Protocol: Document 05/05/24 13:49 NM (Rec: 05/05/24 14:33 NM [id number]) OP-PT Subjective Patient Comments Patient Comments Pt reports R knee still hurting, but states improving. She is still not using any AD for balance. She has been icing for pain management. Reports that her back is doing better today, last adjustment thursday. PT-OP-D Balance Start: 02/29/24 13:47 Freq: Status: Active Protocol: Document 02/29/24 13:47 NM (Rec: 02/29/24 16:16 NM [id number]) Balance Tests Marrufo Balance Test Marrufo Balance Test Score 38/56 PT-OP-E Functional Tests Start: 02/29/24 13:47 Freq: Status: Active Protocol: Document 02/29/24 13:47 NM (Rec: 02/29/24 16:14 NM [id number]) Functional Tests Five Times Sit to Stand Test Score 13 seconds Comments uses momentum, poor form, no eccentric control PT-OP-F Manual Assessment Start: 02/29/24 13:47 Freq: Status: Active Protocol: Document 02/29/24 13:47 NM (Rec: 02/29/24 16:14 NM [id number]) Manual Assessments Soft Tissue Assessment Soft Tissue Mobility Assessment Decreased hip flexor length Joint Mobility Assessment Joint Mobility Assessment Decreased hip and trunk ROM PT-OP-G Mobility & Gait Start: 02/29/24 13:47 Freq: Status: Active Protocol: Document 02/29/24 13:47 NM (Rec: 02/29/24 16:14 NM [id number]) OP Gait Assessment Gait Gait Assistance Required: Standby Assistance Distance (Feet) 250 Assistive Devices Assistive Device None,Gait Belt Gait Deviations General Gait Pattern Antalgic,Decreased Feet Clearance,Flexed Trunk,Wide Based Gait Factors Limiting Gait Function Factors Limiting Gait Function Decreased Activity Tolerance, Decreased Sensation,Decreased Strength,Limited Range of Motion,Poor Balance Stair Climbing Evaluation Evaluation Level of Assist On Stairs Contact Guard Assistance Devices Stair Climbing Assistive Devices Left Railing Technique/Endurance Stair Climbing Direction Ascend and Descend Stair Climbing Technique Step to Step Number of Steps Climbed 4 Stair Climbing Set # Repetitions (reps) 2 Comments Stair Climbing Comments Poor descent control PT-OP-H Neuro Start: 02/29/24 13:47 Freq: Status: Active Protocol: Document 02/29/24 13:47 NM (Rec: 02/29/24 16:14 NM [id number]) Sensation Evaluation Comments Summary Comments BLE grossly intact to light touch sensation until plantar surface of foot. Numbness along plantar surface bilaterally PT-OP-J Posture/Palpation/Skin Start: 02/29/24 13:47 Freq: Status: Active Protocol: Document 02/29/24 13:47 NM (Rec: 02/29/24 16:14 NM [id number]) Posture Evaluation Position Standing Head/C-Spine Posture Forward Head T-Spine Posture Increased Kyphosis L-Spine Posture Increased Lordosis Pelvis Posture Anteriorly Tilted Hip Posture (L) Externally Rotated,(R) Externally Rotated Knee Posture (L) Genu Valgus,(R) Genu Valgus Ankle/Foot Posture (L) Pronated,(R) Pronated Foot Arch (L) Low Arch,(R) Low Arch Skin Assessment Other Assessments Skin Assessment Comments Multiple old bruises, purple hematomas from previous injuries along BLE PT-OP-K Range of Motion Start: 02/29/24 13:47 Freq: Status: Active Protocol: Document 02/29/24 13:47 NM (Rec: 02/29/24 16:14 NM [id number]) Ankle and Foot Goniometric Range of Motion Ankle and Foot ROM Limitations Comments Observable limitation in B ankle dorsiflexion PT-OP-M Strength Start: 02/29/24 13:47 Freq: Status: Active Protocol: Document 02/29/24 13:47 NM (Rec: 02/29/24 16:14 NM [id number]) Trunk Strength Trunk Manual Muscle Testing Flexion 3 Fair Extension 3 Fair Rotation Left 3 Fair Rotation Right 3 Fair Lateral Flexion Left 3 Fair Lateral Flexion Right 3 Fair Hip Strength Hip Manual Muscle Testing Right Flexion (L2) 3+ Fair+ Extension (S1) 3+ Fair+ Abduction 3+ Fair+ Left Flexion (L2) 3+ Fair+ Extension (S1) 3+ Fair+ Abduction 3+ Fair+ Knee Strength Knee Manual Muscle Testing Right Flexion (S2) 4- Good- Extension (L3) 4- Good- Left Flexion (S2) 4- Good- Extension (L3) 4- Good- Ankle/Foot Strength Ankle and Foot Manual Muscle Testing Right Dorsiflexion (L4) 4- Good- Plantarflexion (S1) 3 Fair Comments Plantarflexion tested in sitting Left Dorsiflexion (L4) 4- Good- Plantarflexion (S1) 3 Fair Comments Plantarflexion tested in sitting PT-OP-Q Treatments Start: 02/29/24 13:47 Freq: Status: Active Protocol: Document 05/05/24 13:49 NM (Rec: 05/05/24 14:33 NM [id number]) Therapeutic Exercises Sitting Exercises deadlift Side bilateral Resistance level 4 band from chair Reps/Minutes 10 Comments pain free in back and knee lat push up Side bilateral Reps/Minutes 2x10 Standing Exercises deadlift Side bilateral Resistance level 4 band under feet Reps/Minutes 10 Comments trialed; HSC Side bilateral Resistance AROM>2# Equipment Used 2 hand support Reps/Minutes 10 Comments R more limited ROM; cued upright trunk side stepping Standing Exercise Name 1. fwd/retro, 2. lateral Side bilateral Resistance level 4 band at thighs Reps/Minutes 2x10 ft ea Comments cued no dragging feet, upright posture Neuro Re-Education Treatment Balance Activities shuttle balance Details CGA-min A Surface unstable Equipment red Reps/Duration 2 min ea Comments 1. A/P Demos strong posterior lean, cued for anterior weight shift with emphasis to shift onto toes w/o curling them 2. M/L Improved equal WB but challenging for pt to look up unstable surface Details close SBA-CGA prn Surface stable Equipment large oakes pillow Reps/Duration 60 ea Comments 1. head turns while counting bwd from 100 by 2's 2. head nods while counting bwd from 100 by 2's 3. eye closed (increased sway) 4. marching Improved WS, pain free, no LOB DGI Reps/Duration 2x25 ft ea Comments 1.ambulation w/ head turns horizontal 2.ambulation w/ head turns vertical cued for upright posture and maintaining nose over navel to promote better trunk positioning 3. cone weaving, 5ft x2 sets reports knee pain so d/c due to discomfort PT-OP-T Assessment and Plan Start: 02/29/24 13:47 Freq: Status: Active Protocol: Document 05/05/24 13:49 NM (Rec: 05/05/24 14:33 NM [id number]) Physical Therapy Assessment Goals Five Impairment gait Short Term Goal (STG) If appropriate, pt will be fit for LRAD for gait in order to demonstrate increased safety during ambulation, decreased fall risk, and activity tolerance 04/07/24: pt has been educated and fitted for trek poles; trialed and educated also on use of 4ww for safety. however , pt declines to use AD STG Duration 6 weeks MET Director Embalmer Goal (LTG) Pt will be able to ambulate with or without LRAD at least community distances in order to demonstrate improved activity tolerance, safety during gait, and decreased fall risk LTG Duration 12 weeks Four Impairment confidence, activity tolerance Impairment ABC scale 58% Director Embalmer Goal (LTG) Pt will report > 65% confidence in not falling during ADLs in order to demonstrate improved ability to participate in community events and activities at home LTG Duration 12 weeks Three Impairment strength Impairment 5x STS 13 seconds Short Term Goal (STG) Pt will be able to perform at least 10 sit to stands without UE assistance or compensations from standard chair in order to demonstrate improved BLE strength for gait , balance, and transfers 04/05/24: 10 STS w. hip hinge, no UE support STG Duration 6 weeks MET Director Embalmer Goal (LTG) Pt will be able to perform 5x STS without UE assistance and without compensations in at elast 12.6 seconds (age- related norm) in order to demonstrates improved BLE strength for gait, balance, and transfers LTG Duration 12 weeks Two Impairment dynamic balance Impairment DGI 07/14 Short Term Goal (STG) Pt will increase DGI score to at least 15/24 in order to demonstrate improved dynamic balance during gait and exercise 04/07/24: 11 STG Duration 6 weeks NOT MET Senior Care Goal (LTG) Pt will increase DGI score to at least 19/24 in order to demonstrate improved dynamic balance during gait and exercise LTG Duration 12 weeks One Impairment balance Impairment Marrufo score 38/56 Short Term Goal (STG) Pt will increase Marrufo balance score to at least 45/56 in order to demonstrate improved balance without AD and decreased fall risk 04/07/24: 46/56 STG Duration 6 weeks MET Director Embalmer Goal (LTG) Pt will increase Marrufo balance score to at least 48/56 in order to demonstrate improved balance without AD and decreased fall risk LTG Duration 12 weeks Assessment Summary Assessment Pt tolerated session well, demonstrates improved stance time on unstable surface. Pt able to progress through head movements with dual tasking, eyes closed, and marching. Pt does not have knee pain with marching on pillow pad today. Good form with deadlift from both sitting and standing position with level 4 band. Pt able to tolerate well, no knee pain. Cued only for correct execution initially. Pt continues to be challenged by weaving in cones and with head movements during ambulation; slight knee pain when moving in cones, so discontinued for now. Cued for upright posture. Pt would benefit from skilled PT for progressive strengthening, gait and balance training to reduce fall risk. Physical Therapy Plan Frequency and Duration Frequency of Treatment 2x/Week Duration of treatment (weeks) 12 Plan of Care Start Date 02/29/24 Plan of Care End Date 05/27/24 Therapeutic Interventions Therapeutic Interventions Balance Training,Canalithic Repositioning,Gait Training, Home Exercise Program,Joint Mobilizations,Manual Therapy, Neuromuscular Re-education, Orthotic/Prosthetic Management ,Patient/Caregiver Education, Self-Care/Home Management,Soft Tissue Mobilization,Taping, Therapeutic Activities, Therapeutic Exercises, Vestibular Rehabilitation Modalities Cold Pack/Ice Massage,Hot Packs Next Visit Focus/Plan Next Note Type Treatment Note Next Visit Plan monitor vitals, fall risk Marrufo activities, retry step down 4-6 fwd /stairs, standing HSC. Cont with balance: unstable surface, retro walk, carrying objects, hurdles, obstacle course, ball toss, bungee, shuttle balance Plan of care: hip strength, endurance, balance, stairs
--- NOTE | 2024-05-20 14:29 | PT.OTN ---
Current Diagnoses Unsteadiness on feet (05/20/24) Other lack of coordination (05/20/24) Weakness (05/20/24) Unspecified fall, initial encounter (05/20/24) Physical Therapy Treatment Note PT-OP-A Visit Information Start: 02/29/24 13:47 Freq: Status: Active Protocol: Document 05/20/24 13:49 SP (Rec: 05/20/24 14:34 SP [id number]) Out-Patient Physical Therapy Visit Information Visit Information Visit Type Treatment Note Visit Note 04/30 post PN Visit Start Time 13:49 Visit Stop Time 14:29 Visit Number 16 Number of RADIOPHONE OPERATOR Visits 1 Evaluation Information Evaluation Date 02/29/24 Precautions Precautions blood pressure, fall risk PT-OP-B Current Condition Start: 02/29/24 13:47 Freq: Status: Active Protocol: Document 02/29/24 13:47 NM (Rec: 02/29/24 16:14 NM [id number]) Current Condition History of Current Condition Current Complaints mobility, balance, weakness, endurance History of Current Condition Pt presents with abnormalities of balance, gait, strength, and decreased endurance. She reports that she uses furniture and underwood to assist with balance. Does not use an AD despite being told that she should. Hx of falls, most recent last when tripping over an object. Denies vertigo, dizziness. Report tingling in feet, numbness in plantar surfaces bilaterally. PMH of breast cancer, blood clots, headaches , memory loss, shortness of breath. Reports blood pressure usually low; does not get dizzy with positional changes. No falls otherwise, only near misses. Has several stairs with rails leading up to house and several inside (3 levels) . Lives with 2 adult sons. Retired Treatment Goals Patient/Caregiver Goals get stronger, improve endurance Current Functional Impairments (Reported) Functional Limitations- ADL's dressing Functional Limitations- Mobility/Gait 1/8 mi or 3-4 blocks ambulation sitting stairs Functional Limitations- Work/School retired PT-OP-C Subjective Start: 02/29/24 13:47 Freq: Status: Active Protocol: Document 05/20/24 13:49 SP (Rec: 05/20/24 14:34 SP [id number]) OP-PT Subjective Patient Comments Patient Comments Pt reports knees bothersome today at arrival. She states charlie pain descending stairs but walking better. PT-OP-D Balance Start: 02/29/24 13:47 Freq: Status: Active Protocol: Document 02/29/24 13:47 NM (Rec: 02/29/24 16:16 NM [id number]) Balance Tests Marrufo Balance Test Marrufo Balance Test Score 38/56 PT-OP-E Functional Tests Start: 02/29/24 13:47 Freq: Status: Active Protocol: Document 02/29/24 13:47 NM (Rec: 02/29/24 16:14 NM [id number]) Functional Tests Five Times Sit to Stand Test Score 13 seconds Comments uses momentum, poor form, no eccentric control PT-OP-F Manual Assessment Start: 02/29/24 13:47 Freq: Status: Active Protocol: Document 02/29/24 13:47 NM (Rec: 02/29/24 16:14 NM [id number]) Manual Assessments Soft Tissue Assessment Soft Tissue Mobility Assessment Decreased hip flexor length Joint Mobility Assessment Joint Mobility Assessment Decreased hip and trunk ROM PT-OP-G Mobility & Gait Start: 02/29/24 13:47 Freq: Status: Active Protocol: Document 02/29/24 13:47 NM (Rec: 02/29/24 16:14 NM [id number]) OP Gait Assessment Gait Gait Assistance Required: Standby Assistance Distance (Feet) 250 Assistive Devices Assistive Device None,Gait Belt Gait Deviations General Gait Pattern Antalgic,Decreased Feet Clearance,Flexed Trunk,Wide Based Gait Factors Limiting Gait Function Factors Limiting Gait Function Decreased Activity Tolerance, Decreased Sensation,Decreased Strength,Limited Range of Motion,Poor Balance Stair Climbing Evaluation Evaluation Level of Assist On Stairs Contact Guard Assistance Devices Stair Climbing Assistive Devices Left Railing Technique/Endurance Stair Climbing Direction Ascend and Descend Stair Climbing Technique Step to Step Number of Steps Climbed 4 Stair Climbing Set # Repetitions (reps) 2 Comments Stair Climbing Comments Poor descent control PT-OP-H Neuro Start: 02/29/24 13:47 Freq: Status: Active Protocol: Document 02/29/24 13:47 NM (Rec: 02/29/24 16:14 NM [id number]) Sensation Evaluation Comments Summary Comments BLE grossly intact to light touch sensation until plantar surface of foot. Numbness along plantar surface bilaterally PT-OP-J Posture/Palpation/Skin Start: 02/29/24 13:47 Freq: Status: Active Protocol: Document 02/29/24 13:47 NM (Rec: 02/29/24 16:14 NM [id number]) Posture Evaluation Position Standing Head/C-Spine Posture Forward Head T-Spine Posture Increased Kyphosis L-Spine Posture Increased Lordosis Pelvis Posture Anteriorly Tilted Hip Posture (L) Externally Rotated,(R) Externally Rotated Knee Posture (L) Genu Valgus,(R) Genu Valgus Ankle/Foot Posture (L) Pronated,(R) Pronated Foot Arch (L) Low Arch,(R) Low Arch Skin Assessment Other Assessments Skin Assessment Comments Multiple old bruises, purple hematomas from previous injuries along BLE PT-OP-K Range of Motion Start: 02/29/24 13:47 Freq: Status: Active Protocol: Document 02/29/24 13:47 NM (Rec: 02/29/24 16:14 NM [id number]) Ankle and Foot Goniometric Range of Motion Ankle and Foot ROM Limitations Comments Observable limitation in B ankle dorsiflexion PT-OP-M Strength Start: 02/29/24 13:47 Freq: Status: Active Protocol: Document 02/29/24 13:47 NM (Rec: 02/29/24 16:14 NM [id number]) Trunk Strength Trunk Manual Muscle Testing Flexion 3 Fair Extension 3 Fair Rotation Left 3 Fair Rotation Right 3 Fair Lateral Flexion Left 3 Fair Lateral Flexion Right 3 Fair Hip Strength Hip Manual Muscle Testing Right Flexion (L2) 3+ Fair+ Extension (S1) 3+ Fair+ Abduction 3+ Fair+ Left Flexion (L2) 3+ Fair+ Extension (S1) 3+ Fair+ Abduction 3+ Fair+ Knee Strength Knee Manual Muscle Testing Right Flexion (S2) 4- Good- Extension (L3) 4- Good- Left Flexion (S2) 4- Good- Extension (L3) 4- Good- Ankle/Foot Strength Ankle and Foot Manual Muscle Testing Right Dorsiflexion (L4) 4- Good- Plantarflexion (S1) 3 Fair Comments Plantarflexion tested in sitting Left Dorsiflexion (L4) 4- Good- Plantarflexion (S1) 3 Fair Comments Plantarflexion tested in sitting PT-OP-Q Treatments Start: 02/29/24 13:47 Freq: Status: Active Protocol: Document 05/20/24 13:49 SP (Rec: 05/20/24 14:34 SP [id number]) Gym Equipment Shuttle Balance REd Reps/Duration 4 Comments WBOS: wt shift, HTs, EC up to 4 sec Stride stance (4s): wt shift, stationary stance work, unable HTs - Improved no UEs needed- CG-5 %A as needed, cues for wt shfit correction direction Therapeutic Exercises Sitting Exercises deadlift Sitting Exercise Name STS Side bilateral Resistance level 4 band under feet, Equipment Used seated in chair<>stand Reps/Minutes 10 Comments pain free in back and knee lat push up Sitting Exercise Name chair push ups Side bilateral Equipment Used mesh chair Reps/Minutes 2x10 Comments tiring pnfree Standing Exercises deadlift Standing Exercise Name stand<>mini squat /c buttock back Side bilateral Resistance level 4 band under feet Reps/Minutes 10 Comments good form, back painfree HSC Side bilateral Resistance 2#>4# leg wt (loosely fastened ) Equipment Used 2 hand support on table Reps/Minutes 10x2 Comments improved range + BLE, pnfree Neuro Re-Education Treatment Balance Activities back stepping Details /c head turns Equipment CGA hands above Hallway rail Reps/Duration 20 feet X 4 lengths Comments alternate with tandem stepping step up taps Details step taps only alternate BLEs Equipment 4# leg wt, 6 step Reps/Duration 2x10, pause stand rest. Comments cued tall midline scap engagement, improved foot clearance and decreased lateral lean. tandem stepping Equipment CGA hands above Hallway rail Reps/Duration 20 feet X 4 lengths Comments alternate with back stepping PT-OP-T Assessment and Plan Start: 02/29/24 13:47 Freq: Status: Active Protocol: Document 05/20/24 13:49 SP (Rec: 05/20/24 14:34 SP [id number]) Physical Therapy Assessment Goals Five Impairment gait Short Term Goal (STG) If appropriate, pt will be fit for LRAD for gait in order to demonstrate increased safety during ambulation, decreased fall risk, and activity tolerance 04/07/24: pt has been educated and fitted for trek poles; trialed and educated also on use of 4ww for safety. however , pt declines to use AD STG Duration 6 weeks MET Prison Goal (LTG) Pt will be able to ambulate with or without LRAD at least community distances in order to demonstrate improved activity tolerance, safety during gait, and decreased fall risk LTG Duration 12 weeks Four Impairment confidence, activity tolerance Impairment ABC scale 58% Website Developer Goal (LTG) Pt will report > 65% confidence in not falling during ADLs in order to demonstrate improved ability to participate in community events and activities at home LTG Duration 12 weeks Three Impairment strength Impairment 5x STS 13 seconds Short Term Goal (STG) Pt will be able to perform at least 10 sit to stands without UE assistance or compensations from standard chair in order to demonstrate improved BLE strength for gait , balance, and transfers 04/05/24: 10 STS w. hip hinge, no UE support STG Duration 6 weeks MET Website Developer Goal (LTG) Pt will be able to perform 5x STS without UE assistance and without compensations in at elast 12.6 seconds (age- related norm) in order to demonstrates improved BLE strength for gait, balance, and transfers LTG Duration 12 weeks Two Impairment dynamic balance Impairment DGI 07/14 Short Term Goal (STG) Pt will increase DGI score to at least 15/24 in order to demonstrate improved dynamic balance during gait and exercise 04/07/24: 08/14 STG Duration 6 weeks NOT MET Prison Goal (LTG) Pt will increase DGI score to at least 19/24 in order to demonstrate improved dynamic balance during gait and exercise LTG Duration 12 weeks One Impairment balance Impairment Marrufo score 38/56 Short Term Goal (STG) Pt will increase Marrufo balance score to at least 45/56 in order to demonstrate improved balance without AD and decreased fall risk 04/07/24: 46/56 STG Duration 6 weeks MET Website Developer Goal (LTG) Pt will increase Marrufo balance score to at least 48/56 in order to demonstrate improved balance without AD and decreased fall risk LTG Duration 12 weeks Assessment Summary Assessment Pt tolerated session well. Able to progress resistance with with standing LEs step taps and HS curls (loosely fastened leg wt) and 2 sets today. Pt improved less UE support on rail during shuttle balance and dynamic walking. Physical Therapy Plan Frequency and Duration Frequency of Treatment 2x/Week Duration of treatment (weeks) 12 Plan of Care Start Date 02/29/24 Plan of Care End Date 05/27/24 Therapeutic Interventions Therapeutic Interventions Balance Training,Canalithic Repositioning,Gait Training, Home Exercise Program,Joint Mobilizations,Manual Therapy, Neuromuscular Re-education, Orthotic/Prosthetic Management ,Patient/Caregiver Education, Self-Care/Home Management,Soft Tissue Mobilization,Taping, Therapeutic Activities, Therapeutic Exercises, Vestibular Rehabilitation Modalities Cold Pack/Ice Massage,Hot Packs Next Visit Focus/Plan Next Note Type Discharge Summary Next Visit Plan monitor vitals, fall risk DC next last visit, be sure give any progressive HEP feel can do on own. Continue progress: Marrufo activities, retry step down 4- 6 fwd /stairs, standing HSC. Cont with balance: unstable surface, retro walk, carrying objects, hurdles, obstacle course, ball toss, bungee, shuttle balance Plan of care: hip strength, endurance, balance, stairs
--- NOTE | 2024-05-26 11:34 | PT-OP ANOTE ---
PT called pt at 11:25 as pt did not show up to final session today at 1115. Pt states that she misread her calendar for the appt time. PT agreed to see pt for discharge testing if pt could get to clinic by 11:35. Pt verbalizes agreement
--- NOTE | 2024-05-26 12:51 | PT.OTN ---
Current Diagnoses Unsteadiness on feet (05/26/24) Other lack of coordination (05/26/24) Weakness (05/26/24) Unspecified fall, initial encounter (05/26/24) Physical Therapy Treatment Note PT-OP-A Visit Information Start: 02/29/24 13:47 Freq: Status: Active Protocol: Document 05/26/24 11:19 NM (Rec: 05/26/24 12:20 NM [id number]) Out-Patient Physical Therapy Visit Information Visit Information Visit Type Discharge Summary Visit Note pt late to session Visit Start Time 11:39 Visit Stop Time 12:00 Visit Number 17 Evaluation Information Evaluation Date 02/29/24 Precautions Precautions blood pressure, fall risk PT-OP-B Current Condition Start: 02/29/24 13:47 Freq: Status: Active Protocol: Document 02/29/24 13:47 NM (Rec: 02/29/24 16:14 NM [id number]) Current Condition History of Current Condition Current Complaints mobility, balance, weakness, endurance History of Current Condition Pt presents with abnormalities of balance, gait, strength, and decreased endurance. She reports that she uses furniture and underwood to assist with balance. Does not use an AD despite being told that she should. Hx of falls, most recent last when tripping over an object. Denies vertigo, dizziness. Report tingling in feet, numbness in plantar surfaces bilaterally. PMH of breast cancer, blood clots, headaches , memory loss, shortness of breath. Reports blood pressure usually low; does not get dizzy with positional changes. No falls otherwise, only near misses. Has several stairs with rails leading up to house and several inside (3 levels) . Lives with 2 adult sons. Retired Treatment Goals Patient/Caregiver Goals get stronger, improve endurance Current Functional Impairments (Reported) Functional Limitations- ADL's dressing Functional Limitations- Mobility/Gait 1/8 mi or 3-4 blocks ambulation sitting stairs Functional Limitations- Work/School retired PT-OP-C Subjective Start: 02/29/24 13:47 Freq: Status: Active Protocol: Document 05/26/24 11:19 NM (Rec: 05/26/24 12:20 NM [id number]) OP-PT Subjective Patient Comments Patient Comments Pt reports that she is feeling better with her knee but still bothers her. States that she ices her knee and back. Pt ok with discharging from PT today. PT-OP-D Balance Start: 02/29/24 13:47 Freq: Status: Active Protocol: Document 02/29/24 13:47 NM (Rec: 02/29/24 16:16 NM [id number]) Balance Tests Marrufo Balance Test Marrufo Balance Test Score 38/56 PT-OP-E Functional Tests Start: 02/29/24 13:47 Freq: Status: Active Protocol: Document 02/29/24 13:47 NM (Rec: 02/29/24 16:14 NM [id number]) Functional Tests Five Times Sit to Stand Test Score 13 seconds Comments uses momentum, poor form, no eccentric control PT-OP-F Manual Assessment Start: 02/29/24 13:47 Freq: Status: Active Protocol: Document 02/29/24 13:47 NM (Rec: 02/29/24 16:14 NM [id number]) Manual Assessments Soft Tissue Assessment Soft Tissue Mobility Assessment Decreased hip flexor length Joint Mobility Assessment Joint Mobility Assessment Decreased hip and trunk ROM PT-OP-G Mobility & Gait Start: 02/29/24 13:47 Freq: Status: Active Protocol: Document 02/29/24 13:47 NM (Rec: 02/29/24 16:14 NM [id number]) OP Gait Assessment Gait Gait Assistance Required: Standby Assistance Distance (Feet) 250 Assistive Devices Assistive Device None,Gait Belt Gait Deviations General Gait Pattern Antalgic,Decreased Feet Clearance,Flexed Trunk,Wide Based Gait Factors Limiting Gait Function Factors Limiting Gait Function Decreased Activity Tolerance, Decreased Sensation,Decreased Strength,Limited Range of Motion,Poor Balance Stair Climbing Evaluation Evaluation Level of Assist On Stairs Contact Guard Assistance Devices Stair Climbing Assistive Devices Left Railing Technique/Endurance Stair Climbing Direction Ascend and Descend Stair Climbing Technique Step to Step Number of Steps Climbed 4 Stair Climbing Set # Repetitions (reps) 2 Comments Stair Climbing Comments Poor descent control PT-OP-H Neuro Start: 02/29/24 13:47 Freq: Status: Active Protocol: Document 02/29/24 13:47 NM (Rec: 02/29/24 16:14 NM [id number]) Sensation Evaluation Comments Summary Comments BLE grossly intact to light touch sensation until plantar surface of foot. Numbness along plantar surface bilaterally PT-OP-J Posture/Palpation/Skin Start: 02/29/24 13:47 Freq: Status: Active Protocol: Document 02/29/24 13:47 NM (Rec: 02/29/24 16:14 NM [id number]) Posture Evaluation Position Standing Head/C-Spine Posture Forward Head T-Spine Posture Increased Kyphosis L-Spine Posture Increased Lordosis Pelvis Posture Anteriorly Tilted Hip Posture (L) Externally Rotated,(R) Externally Rotated Knee Posture (L) Genu Valgus,(R) Genu Valgus Ankle/Foot Posture (L) Pronated,(R) Pronated Foot Arch (L) Low Arch,(R) Low Arch Skin Assessment Other Assessments Skin Assessment Comments Multiple old bruises, purple hematomas from previous injuries along BLE PT-OP-K Range of Motion Start: 02/29/24 13:47 Freq: Status: Active Protocol: Document 02/29/24 13:47 NM (Rec: 02/29/24 16:14 NM [id number]) Ankle and Foot Goniometric Range of Motion Ankle and Foot ROM Limitations Comments Observable limitation in B ankle dorsiflexion PT-OP-M Strength Start: 02/29/24 13:47 Freq: Status: Active Protocol: Document 05/26/24 11:19 NM (Rec: 05/26/24 12:20 NM [id number]) Hip Strength Hip Manual Muscle Testing Right Flexion (L2) 4 Good Extension (S1) 4 Good Abduction 4 Good Left Flexion (L2) 4 Good Extension (S1) 4 Good Abduction 4 Good PT-OP-Q Treatments Start: 02/29/24 13:47 Freq: Status: Active Protocol: Document 05/26/24 11:19 NM (Rec: 05/26/24 12:20 NM [id number]) Therapeutic Exercises Sitting Exercises sit to stand Sitting Exercise Name 5x STS test Equipment Used standard chair Reps/Minutes 10 sec Standing Exercises marching Standing Exercise Name 1. resistance at thighs, 2. resistance at toes Side bilateral Resistance level 2 band at thighs, level 1 band at toes Reps/Minutes 1. 15 ea, 2. 10 ea Comments pain free hip 3 way Standing Exercise Name hip flexion, hip abduction, hip extension Side bilateral Resistance level 2 band above thighs Equipment Used 1 rail for assistance Reps/Minutes 15 ea Comments fatiguing for pt deadlift Standing Exercise Name stand<>mini squat /c buttock back Side bilateral Resistance level 5 band under feet- provided for HEP Reps/Minutes 2x10 Comments good form, back painfree Neuro Re-Education Treatment Balance Activities DGI Reps/Duration Marrufo Reps/Duration PT-OP-T Assessment and Plan Start: 02/29/24 13:47 Freq: Status: Active Protocol: Document 05/26/24 11:19 NM (Rec: 05/26/24 12:20 NM [id number]) Physical Therapy Assessment Goals Five Impairment gait Short Term Goal (STG) If appropriate, pt will be fit for LRAD for gait in order to demonstrate increased safety during ambulation, decreased fall risk, and activity tolerance 04/07/24: pt has been educated and fitted for trek poles; trialed and educated also on use of 4ww for safety. however , pt declines to use AD STG Duration 6 weeks MET Director Of Cardiac Cath Lab Goal (LTG) Pt will be able to ambulate with or without LRAD at least community distances in order to demonstrate improved activity tolerance, safety during gait, and decreased fall risk 05/26/24: Pt ambulates without LRAD for both household and community distances, limited by prn back pain and knee pain ; initial balance is intermittently unstable and/or pt will reach for objects to stabilize. However, refuses to use AD when educated, even periodically LTG Duration 12 weeks PARTIALLY MET Four Impairment confidence, activity tolerance Impairment ABC scale 58% Snf Goal (LTG) Pt will report > 65% confidence in not falling during ADLs in order to demonstrate improved ability to participate in community events and activities at home 05/26/24: 82.5% LTG Duration 12 weeks MET Three Impairment strength Impairment 5x STS 13 seconds Short Term Goal (STG) Pt will be able to perform at least 10 sit to stands without UE assistance or compensations from standard chair in order to demonstrate improved BLE strength for gait , balance, and transfers 04/05/24: 10 STS w. hip hinge, no UE support STG Duration 6 weeks MET Snf Goal (LTG) Pt will be able to perform 5x STS without UE assistance and without compensations in at elast 12.6 seconds (age- related norm) in order to demonstrates improved BLE strength for gait, balance, and transfers 05/26/24: 10 seconds from standard chair LTG Duration 12 weeks MET Two Impairment dynamic balance Impairment DGI 07/14 Short Term Goal (STG) Pt will increase DGI score to at least 15/24 in order to demonstrate improved dynamic balance during gait and exercise 04/07/24: 08/14 STG Duration 6 weeks NOT MET Snf Goal (LTG) Pt will increase DGI score to at least 19/ in order to demonstrate improved dynamic balance during gait and exercise 05/05/24: 05/26/24: LTG Duration 12 weeks MET One Impairment balance Impairment Marrufo score 38/56 Short Term Goal (STG) Pt will increase Marrufo balance score to at least 45/56 in order to demonstrate improved balance without AD and decreased fall risk 04/07/24: 46/56 STG Duration 6 weeks MET Director Of Cardiac Cath Lab Goal (LTG) Pt will increase Marrufo balance score to at least 48/56 in order to demonstrate improved balance without AD and decreased fall risk 05/26/24:52/56 LTG Duration 12 weeks MET Assessment Summary Assessment Decreased session time because pt late since forgot session time. Session emphasis on discharge testing and establishing maintenance HEP. Continued with global hip and knees strengthening. Edcuated on use of lower level bands initially for hip 3 ways and marching to promote better balance and form before progressing. PT educated pt on use of hand support during exercises for stability and to maximize correct execution during exercises. Pt verbalizes agreement Physical Therapy Plan Frequency and Duration Frequency of Treatment 2x/Week Duration of treatment (weeks) 12 Plan of Care Start Date 02/29/24 Plan of Care End Date 05/27/24 Therapeutic Interventions Therapeutic Interventions Balance Training,Canalithic Repositioning,Gait Training, Home Exercise Program,Joint Mobilizations,Manual Therapy, Neuromuscular Re-education, Orthotic/Prosthetic Management ,Patient/Caregiver Education, Self-Care/Home Management,Soft Tissue Mobilization,Taping, Therapeutic Activities, Therapeutic Exercises, Vestibular Rehabilitation Modalities Cold Pack/Ice Massage,Hot Packs Discharge Physical Therapy Discharge Reasons Goals Met Discharge Comments Pt plan of care expiring, pt has made maximal progress with PT for current impairments. PT and pt in agreement about discharge Next Visit Focus/Plan Next Note Type Discharge Summary Next Visit Plan discharge from PT
== END 2024-05-31 10:32 | disposition home or self-care (01) ==
LOC: PHYS 11:15
PROVIDERS: Family Provider Family Medicine; PCP Family Medicine; Referring Provider Family Medicine; Visit Provider Family Medicine
DX: R26.81 Unsteadiness on feet (principal); W19.XXXA Unspecified fall, initial encounter; R53.1 Weakness; R27.8 Other lack of coordination
CPT/HCPCS: 97110; 97112; 97116; 97162; 97530; 97535

== ENCOUNTER → 2024-06-20 16:14 | Outpatient (CLI) | payer MEDICARE, OTHER, SELFPAY ==
--- NOTE | 2024-06-20 16:15 | DI.RAD.S_ITS ---
PROCEDURE: XR KNEE RT 3V INDICATIONS: Right knee pain TECHNIQUE: 3 views of the knee were acquired. COMPARISON: None. FINDINGS: Bones: No fractures or dislocations. Joint space narrowing. Tricompartmental osteophytosis. No suspicious bony lesions. Soft tissues: Small joint effusion. No suspicious soft tissue calcifications. IMPRESSION: No acute osseous abnormality. 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 Dictated by: Michael Velasquez M.D. on 06/20/2024 at 16:57 Approved by: Michael Velasquez M.D. on 06/20/2024 at 16:58
== END ==
PROVIDERS: Family Provider Family Medicine; PCP Family Medicine; Referring Provider Physician Assistant Surgical; Visit Provider Physician Assistant Surgical
DX: M25.561 Pain in right knee (principal); M17.11 Unilateral primary osteoarthritis, right knee
CPT/HCPCS: 73562

== ENCOUNTER → 2025-01-18 15:04 | Outpatient (CLI) | payer MEDICARE, OTHER, SELFPAY ==
[2025-01-18 15:43] LABS: Mean Corpuscular HGB Conc 34.3 % (30-36); Mean Corpuscular Hemoglobin 29.3 PG (26-34); Mean Corpuscular Volume 85.4 fL (80-100); Platelet Count 270 X10^3/uL (150-400); Red Blood Cell Count 4.45 X10^6/uL (4.0-5.2); Red Cell Distribution Width 15.4 % (11.6-14.8); White Blood Cell Count 7.2 X10^3/uL (4.5-11.0)
[2025-01-18 15:56] LABS: Alanine Aminotransferase 24 IU/L (<35); Albumin 4.4 g/dL (3.5-5.0); Albumin Globulin Ratio 1.6 (1.0-2.8); Alkaline Phosphatase 63 U/L (38-126); Aspartate Aminotransferase 32 IU/L (14-36); BUN Creatinine Ratio 26.4 (6-22); Bilirubin Total 0.8 mg/dL (0.2-1.3); Blood Urea Nitrogen 23 mg/dL (7-17); Carbon Dioxide 26 mmol/L (22-32); Chloride 103 mmol/L (98-107); Cholesterol 227 mg/dL (140-199); Estimated Glomerular Filt Rate > 60 mL/min (>60); Globulin 2.7 g/dL (1.7-4.1); Glucose 103 mg/dL (70-99); HDL Cholesterol 68 mg/dL (40-60); HEMOLYSIS < 15 (0-50); LDL Cholesterol Calculated 145 mg/dL (<100); Potassium 4.3 mmol/L (3.4-5.1); Sodium 137 mmol/L (137-145); Total Protein 7.1 g/dL (6.3-8.2); Triglycerides 72 mg/dL (35-150)
[2025-01-19 16:21] LABS: Hep C Virus Ab w/Reflex Quant NEGATIVE s/c (NEGATIVE)
== END ==
PROVIDERS: Family Provider Family Medicine; PCP Family Medicine; Referring Provider Family Medicine; Visit Provider Family Medicine
DX: E78.5 Hyperlipidemia, unspecified (principal); Z00.00 Encounter for general adult medical examination without abnormal findings; R53.83 Other fatigue
CPT/HCPCS: 36415; 80053; 80061; 85027; 86803